=== PATIENT | male | born 1955 | race Caucasian/White ===

== ENCOUNTER 2024-01-31 18:47 | Outpatient (BNV) | payer MEDICARE, SELFPAY | END 2024-02-20 07:00 | PROVIDERS: Admitting Provider Psychiatry & Neurology Psychiatry; Visit Provider Internal Medicine Cardiovascular Disease | DX: R22.43 Localized swelling, mass and lump, lower limb, bilateral (principal) | CPT/HCPCS: 93306 ==

== ENCOUNTER 2024-01-31 18:47 | Outpatient (BNV) | payer MEDICARE, SELFPAY | END 2024-02-19 | PROVIDERS: Admitting Provider Psychiatry & Neurology Psychiatry; Visit Provider Internal Medicine Cardiovascular Disease | DX: R00.1 Bradycardia, unspecified (principal) | CPT/HCPCS: 93010 ==

== ENCOUNTER 2024-01-31 18:47 | Inpatient (IN) | payer MEDICARE, SELFPAY ==
--- NOTE | ~2024-01-31 | CT_ITS ---
EXAMINATION: CT HEAD WITHOUT CONTRAST CLINICAL INFORMATION: s/p fall head injury COMPARISON: None available. TECHNIQUE: Contiguous axial imaging was performed from the skull base to vertex without intravenous administration of contrast. This CT examination was performed using dose optimization techniques as appropriate, variously including the following: *Automated exposure control *Adjustment of mA and/or kV according to patient size (this includes techniques or standardized protocols for targeted exams where dose is matched to indication/reason for exam; i.e. extremities or head) *Use of iterative reconstruction technique DLP: 825 mGy-cm FINDINGS: Bony calvarium is intact. Skull base is intact. Incomplete fusion posterior arch of C1, congenital. No acute intracranial hemorrhage, mass effect, midline shift, hydrocephalus or herniation. Heaton-white matter differentiation is normal. Posterior cranial fossa contents demonstrated no acute intracranial hemorrhage or mass effect. Sellar/suprasellar region demonstrated no gross mass. Craniocervical junction is intact. Mucosal thickening without air-fluid levels in the paranasal sinuses. Tympanic cavities and mastoid air cells are aerated. CT/CT head/brain wo IV con IMPRESSION: No acute fracture, bony calvarium. No acute intracranial hemorrhage. Electronically signed by: Jevon Mcmahon MD 02/06/2024 10:49 AM EDT
[2024-01-31 19:05] VITALS: BMI 18.0
[2024-01-31 19:06] VITALS: BMI 18.0
[2024-01-31 19:11] VITALS: BP 130/74; PULSE 86; RESP 20; TEMP 36.3; O2SAT 98
[2024-01-31] MEDS: bisacodyL 5 MG TABLET.DR 10 MG PO (21:22)
[2024-01-31] MEDS: LORazepam 1 MG TABLET PO (21:23)
[2024-01-31 21:24] VITALS: BP 95/66; PULSE 97; RESP 18; TEMP 36.6; O2SAT 98
[2024-01-31] MEDS: QUEtiapine Fumarate 50 MG TABLET 150 MG PO (21:24)
--- NOTE | 2024-02-01 02:44 | PC.ADMIT ---
Admitted these 68 years old male patient from [facility] per stretcher accompanied by ambulance staff and security system engineer w/ presenting problem of catatonia. Pt. has HX of Frontotemporal Dementia, Anxiety, depression, HTN and Squamous cell cancer of scalp and skin of neck resection years ago . According to report pt came in 01/25/24 i [facility] w/ catatonia, on Ativan, had been on Ativan DC'd- catatonia. Ativan 1 mg daily- pt get better. His brother chart daily thru- My Chart. Pt is fixated on his bowels. Pt. arrived here in the unit at 19:05h w/ the CV. Upon arrival to the unit pt is oriented to the unit, room, room mate and staff. Pt. is pleasant on approached, cooperative w/ the admission process although towards the end he is very sleepy. Pt is alert and oriented to person, place and date. Skin assessment done w/ some redness on his buttocks, hands and elbows but intact, has some red dots anterior and posterior Torso. Pt signs some of the consents for release of information but refused the others, pt said he will talk 1st w/ his brother. call center team leader provider notified w/ new orders put in and acknowledged. Pt given his scheduled medications at HS and med compliant.Patient c/o being hungry, given a sandwich and radha steve. Pt. is independent in ADL's, ambulation and continent of urine. Pt wears eyeglasses at baseline. We'll continue to monitor patient.
--- NOTE | 2024-02-01 06:45 | HO.PSYADMNOT ---
HPI Date of Service: 02/01/24 Chief Complaint: Catatonia Sources of Information: patient interviewed, chart reviewed and crisis/core team assessment reviewed HPI Subjective Notes: Rich Warning Healthcare Proxy: Yes Narrative: The patient is a 68-year-old male, from his , living with his brother with a past history of frontotemporal dementia who was initially admitted at [facility] last month due to catatonia. Was treated with lorazepam with for improvement but later on taper it off. He was seen by his neurologist on January and recommended to go to the hospital since he relapsed on his catatonic symptoms. He was assessed in the emergency room of [facility], recommended the possibility of readmission with a facility that has ECT as a treatment option. On interview, the patient was pleasant, cooperative reported that he has been feeling more dysphoric and tired, he adamantly denies active suicidal ideation or paranoia. He looks hypoactive with psychomotor retardation. We discussed at length treatment options and he wants his brother to be involved in the decision making. We discussed options and he agreed to continue lorazepam on the meantime. His main concern is constipation, according to the nursing staff he was very somatically preoccupied with his bowel movements and medications. We are continuing Dulcolax that was started standing at [facility]. The patient is a very poor historian so we will try to gather more collateral information from his brother. Past Psychiatric History: He was admitted into inpatient at [facility] last month due to depression, catatonia that resolved with lorazepam. Medical Evaluation Reviewed: Hospitalist Av Pending [facility] Family History: According to EMS reports, his mother suffered from depression. Social History: The patient is from his , he is residing with his brother in [place]. He recently moved from [place] to [place] to live with him. Substance History: Denies Trauma History: Unable to assess Diagnostics Vital Signs (24Hr): Vital Signs - 24 hr 01/31/24 19:11 01/31/24 21:24 Temperature 97.3 F 97.8 F Pulse Rate 86 97 Respiratory Rate 20 18 Blood Pressure 130/74 95/66 Pulse Oximetry 98 98 Oxygen Delivery Method Room Air Room Air BMI result Body Mass Index 18.0 Meds/Allergies Meds Home Medications ?Medication ?Instructions ?Recorded ?Confirmed ?Type bisacodyl 5 mg tablet,delayed 10 mg PO BEDTIME 01/31/24 01/31/24 History release clonidine HCl 0.1 mg tablet 0.1 mg PO BID 01/31/24 01/31/24 History escitalopram oxalate 5 mg tablet 15 mg PO DAILY 01/31/24 01/31/24 History lorazepam 1 mg tablet (Ativan) 1 mg PO TID 01/31/24 01/31/24 History polyethylene glycol 3350 17 gram 17 g PO DAILY PRN Constipation 01/31/24 01/31/24 History oral powder packet quetiapine 150 mg tablet 150 mg PO BEDTIME 01/31/24 01/31/24 History valsartan 160 mg tablet 160 mg PO DAILY 01/31/24 01/31/24 History Allergies Allergies Allergy/AdvReac Type Severity Reaction Status Date / Time No Known Allergies Allergy Verified 01/31/24 19:31 Mental Status Exam Mental Status Exam Patient Appearance: Appropriate (On hospital gowns) Patient Orientation: Person, Place and Situation Level of Consciousness: Awake and Restless Patient Behavior: Guarded and Passive Mood Description: Withdrawn Affect Description: Blunted Patient Cognition Impaired: Yes Ability to Follow Directions: Good Speech Pattern: Impoverished Hallucinations: None Delusions: Ideas of Reference Thought Process: Distracted and Slowed Thinking Thought Content: positive for Beaver and positive for Poverty of Content Judgement: Poor Assessment & Plan Assessment & Plan (1) Frontotemporal dementia: Status: Acute Code(s): G31.09 - Other frontotemporal neurocognitive disorder; F02.80 - Dementia in other diseases classified elsewhere, unspecified severity, without behavioral disturbance, psychotic disturbance, mood disturbance, and anxiety (2) Catatonia: Status: Acute Code(s): F06.1 - Catatonic disorder due to known physiological condition Plan The patient is an elderly male who looks older than his stated age with a past history of frontotemporal dementia and catatonia who was admitted last month at [facility] for worsening of depression with catatonic symptoms that improved with lorazepam. The patient came back to the emergency room as per his neurologist who noted that he was catatonic again. While he was in the ED, he was reluctant to take Ativan and he was transferred here for the possibility of ECT. The patient is a very poor historian so we will try to gather more collateral information. Plan 1. Continue the same level of observation. 2. Referral to the hospitalist for physical exam. 3. We will follow the blood work and medical assessment. 4. We will need to gather more collateral information from his brother who is the healthcare proxy. 5. Continue Lexapro 15 mg daily and Ativan as prescribed. 6. EKG today Patient educated on: diagnosis and therapeutic strategies Guardian/Caregiver educated on: diagnosis, medication risk/benefits and ECT Informed Consent: further education needed Reason for continued inpatient stay Substantial Risk for: inability to function, rapid decompensation and med/psych decompensation Statement Statement: I have reviewed the history and physical and performed a pertinent examination on my patient. No changes have occurred unless specified. If the History and Physical was not performed prior to admission, the Hospitalist's service will be consulted for completing the admission physical. Time Spent With Patient Time: Total time managing care of this patient today __45__ minutes.
[2024-02-01 07:57] LABS: Cholesterol 213 mg/dL (<200); Estimated Average Glucose 94 mg/dL; HDL Cholesterol 81 mg/dL (>40); Hemoglobin A1C 114.5416 umol/L; Hemoglobin A1c % 4.9 % (<6.0); LDL Cholesterol Calculated 120 mg/dL (<100); Magnesium 1.9 mg/dL (1.6-2.6); Total Hemoglobin (HGBA1C) 3765.9672 umol/L; Triglycerides 60 mg/dL (<150)
[2024-02-01 08:00] VITALS: BP 117/61; PULSE 79; RESP 14; TEMP 36.6; O2SAT 99
[2024-02-01 08:27] LABS: Folate 9.1 ng/mL (> or = 4.0); Vitamin B12 1141 pg/mL (200-900)
[2024-02-01] MEDS: cloNIDine HCL 0.1 MG TABLET PO ×2 (08:57→20:31)
[2024-02-01] MEDS: LORazepam 1 MG TABLET PO ×3 (08:57→20:31)
[2024-02-01] MEDS: Valsartan 160 MG TABLET PO (08:58)
[2024-02-01] MEDS: Escitalopram Oxalate 5 MG TABLET 15 MG PO (08:58)
--- NOTE | 2024-02-01 13:38 | HO.PM.IMCN ---
History of Present Illness Data of Consult Service Date: 02/01/24 Primary Care Provider: Unknown Physician HPI Reason for consult: Admission H&P Patient is a 68-year-old male with a PMH significant for HTN, frontotemporal dementia, and hx of catatonia who was [facility] for decompensation at home and increased catatonic symptoms. Was originally referred to [facility] ED by his neurologist, and patient was transferred to facility with ECT. Hospitalist consult admission H&P. Patient initially seen in common area and then brought to his room for evaluation. Patient appears hypoactive with slight delay in response, slow careful ambulation and movements, but not acutely catatonic. Patient complains of constipation with last bowel movement approximately 3 days ago. Also complains of chronic occasional, intermittent pain on his right side. Currently asymptomatic. Patient otherwise has no acute medical complaints. Denies fever, chills, nausea, vomiting, abdominal pain. No chest pain/pressure, palpitations. Denies shortness or breath or difficulty breathing. No cough. Denies headache or acute vision changes. Review of Systems Review of Systems: Patient has no acute medical complaints at this time. [facility] Medical History (Updated 02/01/24 @ 14:22 by GREGORY Calvert) HTN (hypertension) Social History Household Members: Other Household Members Other:: lives w/ his brother according to the pt. Housing: House Do you presently have visiting nurse or other home services: No Patient Tobacco Use Status: Never used Tobacco Smoked in Last 30 Days: No e-Cigarette/Vaping Use: Never Used Patient Interested in Nicotine Replacement: No (Pt said he never smoke.) Patient Given Instructions on How to Stop Smoking: No Second Hand Smoke Exposure: No Use of substances other than those prescribed or required for medical reasons: No Currently Displaying Signs/Symptoms of Drug Intoxication Withdrawal: No Have you been hit, kicked, punched, or otherwise hurt by someone within the past year? If so, by whom?: No Do you feel safe in your current relationship?: No Current Relationship Is there a partner from a previous relationship who is making you feel unsafe now?: No Are you made to feel afraid or neglected: No Advance Directives: No Advance Directives Information Provided: Yes Do you have thoughts of harming others: None Do you have a plan to hurt others: No Plan Recently lost weight without trying: No How much weight loss: Not applicable Eating poorly because of decreased appetite: No Nutrition screen score: 0 Poor oral hygiene: No Meds Allergies Allergy/AdvReac Type Severity Reaction Status Date / Time No Known Allergies Allergy Verified 01/31/24 19:31 Active Medications: Current Medications Acetaminophen (Acetaminophen 325 Mg Tablet) 650 mg PO Q6H PRN PRN Reason: Headache/Pain Mild Scale (1-3) Al Hydroxide/Mg Hydroxide (Magnesium Hydrox/Alum Hydrox 30 Ml Oral.Susp) 30 ml PO Q6H PRN PRN Reason: Heartburn/Nausea Bisacodyl (Bisacodyl 5 Mg Tablet.Dr) 10 mg PO BEDTIME COUNTS INCLUDE 234 BEDS AT THE [facility] Last Admin: 01/31/24 21:22 Dose: 10 mg Bisacodyl (Bisacodyl 5 Mg Tablet.Dr) 10 mg PO BEDTIME [facility] Clonidine HCl (Clonidine Hcl 0.1 Mg Tablet) 0.1 mg PO BID [facility]IE; Protocol Last Admin: 02/01/24 08:57 Dose: 0.1 mg Escitalopram Oxalate (Escitalopram Oxalate 5 Mg Tablet) 15 mg PO DAILY COUNTS INCLUDE 234 BEDS AT THE [facility] Last Admin: 02/01/24 08:58 Dose: 15 mg Hydroxyzine HCl (Hydroxyzine Hcl 25 Mg Tablet) 25 mg PO Q6H PRN PRN Reason: Anxiety Lorazepam (Lorazepam 1 Mg Tablet) 1 mg PO TID COUNTS INCLUDE 234 BEDS AT THE [facility] Last Admin: 02/01/24 08:57 Dose: 1 mg Magnesium Hydroxide (Milk Of Magnesia 30 Ml Oral.Susp) 30 ml PO DAILY PRN PRN Reason: Constipation Nicotine Polacrilex (Nicotine Polacrilex 2 Mg Gum) 4 mg BUCCAL Q2H PRN PRN Reason: Nicotine Cravings Polyethylene Glycol (Polyethylene Glycol 3350 17 Gm Powd.Pack) 17 gm PO DAILY PRN PRN Reason: Constipation Quetiapine Fumarate (Quetiapine Fumarate 50 Mg Tablet) 150 mg PO BEDTIME COUNTS INCLUDE 234 BEDS AT THE [facility] Last Admin: 01/31/24 21:24 Dose: 150 mg Trazodone HCl (Trazodone Hcl 50 Mg Tablet) 50 mg PO BEDTIME MRX1 PRN PRN Reason: Insomnia Valsartan (Valsartan 160 Mg Tablet) 160 mg PO DAILY COUNTS INCLUDE 234 BEDS AT THE [facility]; Protocol Last Admin: 02/01/24 08:58 Dose: 160 mg Home Medications ?Medication ?Instructions ?Recorded ?Confirmed ?Last Taken ?Type bisacodyl 5 mg tablet,delayed 10 mg PO BEDTIME 01/31/24 01/31/24 01/30/24 21:00 History release clonidine HCl 0.1 mg tablet 0.1 mg PO BID 01/31/24 01/31/24 Unknown History escitalopram oxalate 5 mg tablet 15 mg PO DAILY 01/31/24 01/31/24 Unknown History lorazepam 1 mg tablet (Ativan) 1 mg PO TID 01/31/24 01/31/24 Unknown History polyethylene glycol 3350 17 gram 17 g PO DAILY PRN Constipation 01/31/24 01/31/24 01/29/24 20:00 History oral powder packet quetiapine 150 mg tablet 150 mg PO BEDTIME 01/31/24 01/31/24 Unknown History valsartan 160 mg tablet 160 mg PO DAILY 01/31/24 01/31/24 Unknown History Physical Exam Vital Signs and Narrative: Vital Signs: Last Vital Signs Temp 97.9 F 02/01/24 08:00 Pulse 79 02/01/24 08:00 Resp 14 02/01/24 08:00 BP 117/61 02/01/24 08:00 Pulse Ox 99 02/01/24 08:00 O2 Del Method Room Air 02/01/24 08:00 BMI result Body Mass Index 18.0 General: AOx3, no acute distress Resp: CTA bilaterally CVS: S1, S2, RRR GI: +BS, NT, no distention Skin: Warm, dry Neuro: Cranial nerves II-XII grossly intact bilaterally. Motor grossly intact bilaterally Extremities: No edema Psych: Flat affect, hypoactive Results Labs Labs: Laboratory Results - last 24 hr 02/01/24 07:03 Estimat Average Glucose 94 Hemoglobin A1c % 4.9 Magnesium 1.9 Triglycerides 60 Cholesterol 213 H LDL Cholesterol, Calc 120 H HDL Cholesterol 81 Vitamin B12 1141 H Folate 9.1 TSH 3.50 Free T4 1.00 Assessment and Plan (1) Medical clearance for psychiatric admission: Status: Acute Plan Patient is a 68-year-old male with a PMH significant for HTN, frontotemporal dementia, and hx of catatonia who was admitted [facility] for decompensation at home and increased catatonic symptoms. Was originally referred to [facility] ED by his neurologist, and patient was transferred to facility with ECT. Hospitalist consult admission H&P. Mood disorder Plan as per Psychiatry HTN Continue valsartan Constipation The patient reports last bowel movement 3 days ago Physical exam benign: Abdomen soft, nontender Continue bowel regimen Thank you for allowing us to participate in the care of this patient. Signing off at this time. Please re-consult if any acute complaints or issues arise.
[2024-02-01 20:00] VITALS: BP 126/66; PULSE 77; RESP 18; TEMP 35.7; O2SAT 100
[2024-02-01] MEDS: QUEtiapine Fumarate 50 MG TABLET 150 MG PO (20:29)
[2024-02-01] MEDS: bisacodyL 5 MG TABLET.DR 10 MG PO ×2 (20:30)
[2024-02-01 20:31] VITALS: BP 126/66
--- NOTE | 2024-02-02 06:32 | P.PNPSI_ITS ---
Subjective Subjective Date of Service: 02/02/24 Reason For Visit: Catatonia Interim History: The nursing staff reported the patient is independent on his the ambulation, he remains anxious with psychomotor retardation and slowed thought process. On interview the patient remains anxious. We will try to gather more collateral information today. Mental Status Exam Mental Status Exam Patient Appearance: Appropriate Patient Orientation: Person Level of Consciousness: Awake Patient Behavior: Guarded and Passive Mood Description: Withdrawn Affect Description: Constricted Patient Cognition Impaired: Yes Ability to Follow Directions: Good Speech Pattern: Clear Hallucinations: None Delusions: Ideas of Reference Thought Process: Distracted and Slowed Thinking Thought Content: positive for Perseveration and positive for Thought Blocking Judgement: Poor Diagnostics Vital Signs (24Hr): Vital Signs - 24 hr 02/01/24 08:00 02/01/24 20:00 02/01/24 20:31 Temperature 97.9 F 96.2 F L Pulse Rate 79 77 Respiratory Rate 14 18 Blood Pressure 117/61 126/66 126/66 Pulse Oximetry 99 100 Oxygen Delivery Method Room Air Room Air BMI result Body Mass Index 18.0 Labs Labs: Laboratory Results - last 48 hr 02/01/24 07:03 Estimat Average Glucose 94 Hemoglobin A1c % 4.9 Magnesium 1.9 Triglycerides 60 Cholesterol 213 H LDL Cholesterol, Calc 120 H HDL Cholesterol 81 Vitamin B12 1141 H Folate 9.1 TSH 3.50 Free T4 1.00 Medications Medications Current Medications Acetaminophen (Acetaminophen 325 Mg Tablet) 650 mg PO Q6H PRN PRN Reason: Headache/Pain Mild Scale (1-3) Al Hydroxide/Mg Hydroxide (Magnesium Hydrox/Alum Hydrox 30 Ml Oral.Susp) 30 ml PO Q6H PRN PRN Reason: Heartburn/Nausea Bisacodyl (Bisacodyl 5 Mg Tablet.Dr) 10 mg PO BEDTIME [facility] Last Admin: 02/01/24 20:30 Dose: 10 mg Bisacodyl (Bisacodyl 5 Mg Tablet.Dr) 10 mg PO BEDTIME [facility] Last Admin: 02/01/24 20:30 Dose: 10 mg Clonidine HCl (Clonidine Hcl 0.1 Mg Tablet) 0.1 mg PO BID [facility]; Protocol Last Admin: 02/01/24 20:31 Dose: 0.1 mg Escitalopram Oxalate (Escitalopram Oxalate 5 Mg Tablet) 15 mg PO DAILY [facility] Last Admin: 02/01/24 08:58 Dose: 15 mg Hydroxyzine HCl (Hydroxyzine Hcl 25 Mg Tablet) 25 mg PO Q6H PRN PRN Reason: Anxiety Lorazepam (Lorazepam 1 Mg Tablet) 1 mg PO TID [facility] Last Admin: 02/01/24 20:31 Dose: 1 mg Magnesium Hydroxide (Milk Of Magnesia 30 Ml Oral.Susp) 30 ml PO DAILY PRN PRN Reason: Constipation Nicotine Polacrilex (Nicotine Polacrilex 2 Mg Gum) 4 mg BUCCAL Q2H PRN PRN Reason: Nicotine Cravings Polyethylene Glycol (Polyethylene Glycol 3350 17 Gm Powd.Pack) 17 gm PO DAILY PRN PRN Reason: Constipation Quetiapine Fumarate (Quetiapine Fumarate 50 Mg Tablet) 150 mg PO BEDTIME [facility] Last Admin: 02/01/24 20:29 Dose: 150 mg Trazodone HCl (Trazodone Hcl 50 Mg Tablet) 50 mg PO BEDTIME MRX1 PRN PRN Reason: Insomnia Valsartan (Valsartan 160 Mg Tablet) 160 mg PO DAILY [facility]; Protocol Last Admin: 02/01/24 08:58 Dose: 160 mg Allergies Allergies Allergy/AdvReac Type Severity Reaction Status Date / Time No Known Allergies Allergy Verified 01/31/24 19:31 Assessment & Plan Assessment & Plan (1) Medical clearance for psychiatric admission: Status: Acute Code(s): Z00.8 - Encounter for other general examination Plan Patient is a 68-year-old male with a PMH significant for HTN, frontotemporal dementia, and hx of catatonia who was admitted [facility] for decompensation at home and increased catatonic symptoms. Was originally referred to [facility] ED by his neurologist, and patient was transferred to facility with ECT. Hospitalist consult admission H&P. Mood disorder Plan as per Psychiatry HTN Continue valsartan Constipation The patient reports last bowel movement 3 days ago Physical exam benign: Abdomen soft, nontender Continue bowel regimen Plan 1. Gather collateral information. 2. EKG for possible ECT. 3. Continue with Lexapro 15 mg and benzodiazepines. 4. Observation was changed to 15 minutes since the patient looks safe in the unit. Reason for continued inpatient stay Substantial Risk for: inability to function, rapid decompensation and med/psych decompensation Time Spent With Patient Time: Total time managing care of this patient today __20__ minutes.
[2024-02-02 08:00] VITALS: BP 128/72; PULSE 72; RESP 18; TEMP 36.6; O2SAT 99
[2024-02-02] MEDS: Valsartan 160 MG TABLET PO (08:03)
[2024-02-02] MEDS: cloNIDine HCL 0.1 MG TABLET PO ×2 (08:03→20:57)
[2024-02-02] MEDS: Escitalopram Oxalate 5 MG TABLET 15 MG PO (08:03)
[2024-02-02] MEDS: LORazepam 1 MG TABLET PO ×3 (08:04→20:57)
[2024-02-02 20:00] VITALS: BP 128/73; PULSE 74; RESP 18; TEMP 36.7; O2SAT 100
[2024-02-02] MEDS: QUEtiapine Fumarate 50 MG TABLET 150 MG PO (20:57)
[2024-02-02] MEDS: traZODone HCL 50 MG TABLET PO (20:58)
[2024-02-03 08:00] VITALS: BP 125/68; PULSE 68; RESP 18; TEMP 36.1; O2SAT 99
[2024-02-03] MEDS: Escitalopram Oxalate 5 MG TABLET 15 MG PO (08:50)
[2024-02-03] MEDS: Valsartan 160 MG TABLET PO (08:51)
[2024-02-03] MEDS: LORazepam 1 MG TABLET PO ×3 (08:52→19:45)
[2024-02-03] MEDS: cloNIDine HCL 0.1 MG TABLET PO ×2 (08:52→19:45)
--- NOTE | 2024-02-03 12:15 | HO.PSYCHPN ---
Subjective Subjective Date of Service: 02/03/24 Reason For Visit: Catatonia Subjective Notes: Conditional Voluntary Interim History: The nursing staff reported the patient had been visible in the unit. He reports his depression 09/22. He had been flat and guarded refused to take Dulcolax last night. On interview the patient remains confused calm and hypoactive. We will try to gather more collateral information. Today we have a meeting with his brother and another relative and apparently he does not have frontotemporal dementia. He had been chronically depressed and now he is nearly catatonic. Not at his baseline. Mental Status Exam Mental Status Exam Patient Appearance: Appropriate Patient Orientation: Person and Situation Level of Consciousness: Awake and Appropriate Patient Behavior: Guarded and Passive Mood Description: Withdrawn Affect Description: Constricted Patient Cognition Impaired: Yes Ability to Follow Directions: Good Speech Pattern: Clear Hallucinations: None Delusions: Not Present Thought Process: Distracted and Slowed Thinking Thought Content: positive for [place] and positive for Poverty of Content Judgement: Poor Diagnostics Vital Signs (24Hr): Vital Signs - 24 hr 02/02/24 20:00 02/03/24 08:00 Temperature 98.1 F 97.0 F Pulse Rate 74 68 Respiratory Rate 18 18 Blood Pressure 128/73 125/68 Pulse Oximetry 100 99 Oxygen Delivery Method Room Air Room Air BMI result Body Mass Index 18.0 Medications Medications Current Medications Acetaminophen (Acetaminophen 325 Mg Tablet) 650 mg PO Q6H PRN PRN Reason: Headache/Pain Mild Scale (1-3) Al Hydroxide/Mg Hydroxide (Magnesium Hydrox/Alum Hydrox 30 Ml Oral.Susp) 30 ml PO Q6H PRN PRN Reason: Heartburn/Nausea Bisacodyl (Bisacodyl 5 Mg Tablet.Dr) 10 mg PO BEDTIME [facility] Last Admin: 02/02/24 21:27 Dose: Not Given Bisacodyl (Bisacodyl 5 Mg Tablet.Dr) 10 mg PO BEDTIME [facility] Last Admin: 02/02/24 21:28 Dose: Not Given Clonidine HCl (Clonidine Hcl 0.1 Mg Tablet) 0.1 mg PO BID [facility]; Protocol Last Admin: 02/03/24 08:52 Dose: 0.1 mg Escitalopram Oxalate (Escitalopram Oxalate 5 Mg Tablet) 15 mg PO DAILY [facility] Last Admin: 02/03/24 08:50 Dose: 15 mg Hydroxyzine HCl (Hydroxyzine Hcl 25 Mg Tablet) 25 mg PO Q6H PRN PRN Reason: Anxiety Lorazepam (Lorazepam 1 Mg Tablet) 1 mg PO TID [facility] Last Admin: 02/03/24 08:52 Dose: 1 mg Magnesium Hydroxide (Milk Of Magnesia 30 Ml Oral.Susp) 30 ml PO DAILY PRN PRN Reason: Constipation Nicotine Polacrilex (Nicotine Polacrilex 2 Mg Gum) 4 mg BUCCAL Q2H PRN PRN Reason: Nicotine Cravings Polyethylene Glycol (Polyethylene Glycol 3350 17 Gm Powd.Pack) 17 gm PO DAILY PRN PRN Reason: Constipation Quetiapine Fumarate (Quetiapine Fumarate 50 Mg Tablet) 150 mg PO BEDTIME [facility] Last Admin: 02/02/24 20:57 Dose: 150 mg Trazodone HCl (Trazodone Hcl 50 Mg Tablet) 50 mg PO BEDTIME MRX1 PRN PRN Reason: Insomnia Last Admin: 02/02/24 20:58 Dose: 50 mg Valsartan (Valsartan 160 Mg Tablet) 160 mg PO DAILY [facility]; Protocol Last Admin: 02/03/24 08:51 Dose: 160 mg Allergies Allergies Allergy/AdvReac Type Severity Reaction Status Date / Time No Known Allergies Allergy Verified 01/31/24 19:31 Assessment & Plan Assessment & Plan (1) Catatonia: Status: Acute Code(s): F06.1 - Catatonic disorder due to known physiological condition (2) Major depressive disorder: Status: Acute Code(s): F32.9 - Major depressive disorder, single episode, unspecified Plan Patient is a 68-year-old male with a PMH significant for HTN, frontotemporal dementia as per you must but later on, his brother reported that he does not have this condition., and hx of catatonia who was admitted to [facility] for decompensation at home and increased catatonic symptoms. Was originally referred to [facility] ED by his neurologist, and patient was transferred to facility with ECT. Hospitalist consult admission H&P. Mood disorder Plan as per Psychiatry HTN Continue valsartan Constipation The patient reports last bowel movement 3 days ago Physical exam benign: Abdomen soft, nontender Continue bowel regimen Plan 1. Gather collateral information. 2. EKG for possible ECT. 3. Continue with Lexapro 15 mg and benzodiazepines. 4. Observation was changed to 15 minutes since the patient looks safe in the unit. Reason for continued inpatient stay Substantial Risk for: inability to function, rapid decompensation and med/psych decompensation Time Spent With Patient Time: Total time managing care of this patient today __20__ minutes.
--- NOTE | 2024-02-03 14:42 | MHC.CLN ---
NUTRITION PATIENT WITH BMI=18. APPEARS THIN WITH MILD DEPLETION OF MUSCLE MASS NOTED AT TEMPLES. DISCUSSED ADDING SUPPLEMENT. STATED THAT TOO SWEET . APPEARS TO BE EATING WELL. SKIN WITH REDNESS TO COCCYX. RD TO FOLLOW WEEKLY.
[2024-02-03 19:42] VITALS: BP 131/71; PULSE 70; RESP 17; TEMP 36.8; O2SAT 99
[2024-02-03 19:45] VITALS: BP 131/71
[2024-02-03] MEDS: QUEtiapine Fumarate 50 MG TABLET 150 MG PO (19:45)
[2024-02-03] MEDS: bisacodyL 5 MG TABLET.DR 10 MG PO (19:45)
--- NOTE | 2024-02-04 | ECG_ITS ---
Test Reason : QTC Blood Pressure : / mmHG Vent. Rate : 069 BPM Atrial Rate : 069 BPM P-R Int : 160 ms QRS Dur : 108 ms QT Int : 412 ms P-R-T Axes : 072 084 090 degrees QTc Int : 441 ms Normal sinus rhythm Normal ECG No previous ECGs available Referred By: Camila Mcguire Electronically Signed By:Lb Wong
[2024-02-04 08:00] VITALS: BP 136/70; PULSE 65; RESP 16; TEMP 36.1; O2SAT 100
[2024-02-04] MEDS: Escitalopram Oxalate 5 MG TABLET 15 MG PO (08:44)
[2024-02-04] MEDS: LORazepam 1 MG TABLET PO ×3 (08:45→19:58)
[2024-02-04] MEDS: cloNIDine HCL 0.1 MG TABLET PO ×2 (08:46→19:59)
[2024-02-04] MEDS: Valsartan 160 MG TABLET PO (08:46)
--- NOTE | 2024-02-04 11:21 | HO.PM.IMCN ---
History of Present Illness Data of Consult Service Date: 02/04/24 Requesting physician: Charbel Smith Primary Care Provider: Unknown Physician HPI Reason for consult: ECT risk stratification Patient is a 68-year-old male with a past medical history significant for hypertension and constipation, admitted to [facility] for depression and catatonia. There was question of a history frontotemporal dementia however after confirmation with his family has been deemed that he does not have this diagnosis. He was referred by his neurologist at [facility] for ECT. Hospital consult today for ECT risk stratification. No previous history of ECT. Reports history of hypertension, well-controlled. Denies history of cerebral hemorrhage or ischemic stroke, seizure disorder or TBI. He does mention a possible benign brain lesion diagnosed at [facility] in [place], [place]. He has minimal information on this. No significant cardiac history including CAD, NV, or cardiac arrhythmias. No severe pulmonary conditions. Denies history of bleeding disorders. No previous complications with anesthesia. EKG not yet done. He denies chest pain, palpitations, shortness of breath, dyspnea, lightheadedness, dizziness, fever, chills, nausea, vomiting, or abdominal pain. No bleeding including hematemesis, hemoptysis, hematochezia or melena. Review of Systems Constitutional: Constitutional: Denies body ache(s), Denies chills, Denies fever(s) and Denies headache(s) Eyes: Eyes: Denies change in vision and Denies loss of vision ENT: Denies headache(s) Cardiovascular: Cardiovascular: Denies rapid heart rate, Denies lightheadedness and Denies dyspnea Respiratory: Respiratory: Denies cough and Denies dyspnea Gastrointestinal: Gastrointestinal: Denies nausea and Denies vomiting Integumentary/Breasts: Skin/Breast: Denies rash Neurologic: Denies headache(s), Denies loss of vision and Denies convulsions [facility] Medical History (Updated 02/04/24 @ 13:43 by Camila Mcguire PA-C) HTN (hypertension) Social History Household Members: Other Household Members Other:: lives w/ his brother according to the pt. Housing: House Do you presently have visiting nurse or other home services: No Patient Tobacco Use Status: Never used Tobacco Smoked in Last 30 Days: No e-Cigarette/Vaping Use: Never Used Patient Interested in Nicotine Replacement: No (Pt said he never smoke.) Patient Given Instructions on How to Stop Smoking: No Second Hand Smoke Exposure: No Use of substances other than those prescribed or required for medical reasons: No Currently Displaying Signs/Symptoms of Drug Intoxication Withdrawal: No Have you been hit, kicked, punched, or otherwise hurt by someone within the past year? If so, by whom?: No Do you feel safe in your current relationship?: No Current Relationship Is there a partner from a previous relationship who is making you feel unsafe now?: No Are you made to feel afraid or neglected: No Advance Directives: No Advance Directives Information Provided: Yes Do you have thoughts of harming others: None Do you have a plan to hurt others: No Plan Recently lost weight without trying: No How much weight loss: Not applicable Eating poorly because of decreased appetite: No Nutrition screen score: 0 Poor oral hygiene: No service: No Sexual orientation: Straight/Heterosexual Meds Allergies Allergy/AdvReac Type Severity Reaction Status Date / Time No Known Allergies Allergy Verified 01/31/24 19:31 Active Medications: Current Medications Acetaminophen (Acetaminophen 325 Mg Tablet) 650 mg PO Q6H PRN PRN Reason: Headache/Pain Mild Scale (1-3) Al Hydroxide/Mg Hydroxide (Magnesium Hydrox/Alum Hydrox 30 Ml Oral.Susp) 30 ml PO Q6H PRN PRN Reason: Heartburn/Nausea Bisacodyl (Bisacodyl 5 Mg Tablet.Dr) 10 mg PO BEDTIME [facility] Last Admin: 02/03/24 19:46 Dose: Not Given Clonidine HCl (Clonidine Hcl 0.1 Mg Tablet) 0.1 mg PO BID [facility]; Protocol Last Admin: 02/04/24 08:46 Dose: 0.1 mg Escitalopram Oxalate (Escitalopram Oxalate 5 Mg Tablet) 15 mg PO DAILY [facility] Last Admin: 02/04/24 08:44 Dose: 15 mg Hydroxyzine HCl (Hydroxyzine Hcl 25 Mg Tablet) 25 mg PO Q6H PRN PRN Reason: Anxiety Lorazepam (Lorazepam 1 Mg Tablet) 1 mg PO TID [facility] Last Admin: 02/04/24 08:45 Dose: 1 mg Magnesium Hydroxide (Milk Of Magnesia 30 Ml Oral.Susp) 30 ml PO DAILY PRN PRN Reason: Constipation Nicotine Polacrilex (Nicotine Polacrilex 2 Mg Gum) 4 mg BUCCAL Q2H PRN PRN Reason: Nicotine Cravings Polyethylene Glycol (Polyethylene Glycol 3350 17 Gm Powd.Pack) 17 gm PO DAILY PRN PRN Reason: Constipation Quetiapine Fumarate (Quetiapine Fumarate 50 Mg Tablet) 150 mg PO BEDTIME [facility] Last Admin: 02/03/24 19:45 Dose: 150 mg Trazodone HCl (Trazodone Hcl 50 Mg Tablet) 50 mg PO BEDTIME MRX1 PRN PRN Reason: Insomnia Last Admin: 02/02/24 20:58 Dose: 50 mg Valsartan (Valsartan 160 Mg Tablet) 160 mg PO DAILY [facility]; Protocol Last Admin: 02/04/24 08:46 Dose: 160 mg Home Medications ?Medication ?Instructions ?Recorded ?Confirmed ?Last Taken ?Type bisacodyl 5 mg tablet,delayed 10 mg PO BEDTIME 01/31/24 01/31/24 01/30/24 21:00 History release clonidine HCl 0.1 mg tablet 0.1 mg PO BID 01/31/24 01/31/24 Unknown History escitalopram oxalate 5 mg tablet 15 mg PO DAILY 01/31/24 01/31/24 Unknown History lorazepam 1 mg tablet (Ativan) 1 mg PO TID 01/31/24 01/31/24 Unknown History polyethylene glycol 3350 17 gram 17 g PO DAILY PRN Constipation 01/31/24 01/31/24 01/29/24 20:00 History oral powder packet quetiapine 150 mg tablet 150 mg PO BEDTIME 01/31/24 01/31/24 Unknown History valsartan 160 mg tablet 160 mg PO DAILY 01/31/24 01/31/24 Unknown History Physical Exam Vital Signs and Narrative: Vital Signs: Last Vital Signs Temp 96.9 F 02/04/24 08:00 Pulse 65 02/04/24 08:00 Resp 16 02/04/24 08:00 BP 136/70 02/04/24 08:00 Pulse Ox 100 02/04/24 08:00 O2 Del Method Room Air 02/04/24 08:00 BMI result Body Mass Index 18.0 Assessment and Plan (1) Preoperative clearance: Status: Acute (2) Major depressive disorder: Status: Acute (3) Catatonia: Status: Acute Plan 68-year-old male with a past medical history significant for hypertension. Consult for ECT risk stratification. Will need records from [facility] regarding possible brain lesion (nurse notified to try to obtain record) to determine medical contraindications for ECT. No previous issues with anesthesia. RCRI class 1 risk. EKG pending, we will assess for prolonged QT or ischemic changes.
--- NOTE | 2024-02-04 16:46 | HO.PSYCHPN ---
Subjective Subjective Date of Service: 02/04/24 Reason For Visit: Catatonia Interim History: Met with patient; discussed with team; reviewed chart Patient appears depressed, slow moving, slow talking, thinking seems slowed. Ob/Gyn discussed symptoms and diagnosis of catatonia. Patient expressed ambivalence about accepting this diagnosis, wondering if it could be due to anxiety; also referenced an MRI that supposedly had benign brain lesion written in the impression and patient wondered if that could be the cause. Ob/Gyn shared how patient significantly improved per family and per patient when he took Ativan which is fairly diagnostic of catatonia. Discussed ECT and patient ambivalent but said he would consider. Patient reports and has been observed to repeat himself or repeat words over and over; patient observed to be internally preoccupied Mental Status Exam Mental Status Exam Narrative: Pt is alert and oriented; behavior is cooperative, slowed, mildly guarded; patient is not in distress; dressed in casual attire, queen, glasses with adequate grooming hygiene; mood is described as depressed and affect congruent, constricted/blunted; eye contact appropriate; Speech is slowed and soft, repeats words under his breath; significant psychomotor retardation present; thought process is goal directed; can perseverate on certain topics; Thought content is on various topics he is anxious about; treatment; otherwise pertinent to relevant topics and without any delusional content, paranoid ideations or grandiosity; denies any SI/HI. Patient is internally preoccupied. Patients insight and judgment impaired Diagnostics Vital Signs (24Hr): Vital Signs - 24 hr 02/03/24 19:42 02/03/24 19:45 02/04/24 08:00 Temperature 98.3 F 96.9 F Pulse Rate 70 65 Respiratory Rate 17 16 Blood Pressure 131/71 131/71 136/70 Pulse Oximetry 99 100 Oxygen Delivery Method Room Air Room Air BMI result Body Mass Index 18.0 Medications Medications Current Medications Acetaminophen (Acetaminophen 325 Mg Tablet) 650 mg PO Q6H PRN PRN Reason: Headache/Pain Mild Scale (1-3) Al Hydroxide/Mg Hydroxide (Magnesium Hydrox/Alum Hydrox 30 Ml Oral.Susp) 30 ml PO Q6H PRN PRN Reason: Heartburn/Nausea Bisacodyl (Bisacodyl 5 Mg Tablet.Dr) 10 mg PO BEDTIME [facility] Last Admin: 02/03/24 19:46 Dose: Not Given Clonidine HCl (Clonidine Hcl 0.1 Mg Tablet) 0.1 mg PO BID [facility]; Protocol Last Admin: 02/04/24 08:46 Dose: 0.1 mg Escitalopram Oxalate (Escitalopram Oxalate 5 Mg Tablet) 15 mg PO DAILY [facility] Last Admin: 02/04/24 08:44 Dose: 15 mg Hydroxyzine HCl (Hydroxyzine Hcl 25 Mg Tablet) 25 mg PO Q6H PRN PRN Reason: Anxiety Lorazepam (Lorazepam 1 Mg Tablet) 1 mg PO TID [facility] Last Admin: 02/04/24 14:34 Dose: 1 mg Magnesium Hydroxide (Milk Of Magnesia 30 Ml Oral.Susp) 30 ml PO DAILY PRN PRN Reason: Constipation Nicotine Polacrilex (Nicotine Polacrilex 2 Mg Gum) 4 mg BUCCAL Q2H PRN PRN Reason: Nicotine Cravings Polyethylene Glycol (Polyethylene Glycol 3350 17 Gm Powd.Pack) 17 gm PO DAILY PRN PRN Reason: Constipation Quetiapine Fumarate (Quetiapine Fumarate 50 Mg Tablet) 150 mg PO BEDTIME [facility] Last Admin: 02/03/24 19:45 Dose: 150 mg Trazodone HCl (Trazodone Hcl 50 Mg Tablet) 50 mg PO BEDTIME MRX1 PRN PRN Reason: Insomnia Last Admin: 02/02/24 20:58 Dose: 50 mg Valsartan (Valsartan 160 Mg Tablet) 160 mg PO DAILY [facility]; Protocol Last Admin: 02/04/24 08:46 Dose: 160 mg Allergies Allergies Allergy/AdvReac Type Severity Reaction Status Date / Time No Known Allergies Allergy Verified 01/31/24 19:31 Assessment & Plan Assessment & Plan (1) Catatonia: Status: Acute Code(s): F06.1 - Catatonic disorder due to known physiological condition (2) Major depressive disorder: Status: Acute Code(s): F32.9 - Major depressive disorder, single episode, unspecified (3) Preoperative clearance: Status: Acute Code(s): Z01.818 - Encounter for other preprocedural examination Plan HPI: The patient is a 68-year-old male, from his , living with his brother with a possible past history of frontotemporal dementia who was initially admitted at [facility] last month due to catatonia. Was treated with lorazepam with for improvement but later on taper it off. He was seen by his neurologist on January and recommended to go to the hospital since he relapsed on his catatonic symptoms. He was assessed in the emergency room of [facility], recommended the possibility of readmission with a facility that has ECT as a treatment option. On interview, the patient was pleasant, cooperative reported that he has been feeling more dysphoric and tired, he adamantly denies active suicidal ideation or paranoia. He looks hypoactive with psychomotor retardation. We discussed at length treatment options and he wants his brother to be involved in the decision making. We discussed options and he agreed to continue lorazepam on the meantime. His main concern is constipation, according to the nursing staff he was very somatically preoccupied with his bowel movements and medications. We are continuing Dulcolax that was started standing at [facility]. The patient is a very poor historian so we will try to gather more collateral information from his brother Hospital course: 02/02 He reports his depression 09/22; flat and guarded refused to take Dulcolax last night; remains confused calm and hypoactive. . -meeting with his brother and another relative and apparently he does NOT have frontotemporal dementia. He had been chronically depressed and now he is nearly catatonic. Not at his baseline. 02/03 Patient appears depressed, slow moving, slow talking, thinking seems slowed. Ob/Gyn discussed symptoms and diagnosis of catatonia. Patient expressed ambivalence about accepting this diagnosis, wondering if it could be due to anxiety; also referenced an MRI that supposedly had benign brain lesion written in the impression and patient wondered if that could be the cause. Ob/Gyn shared how patient significantly improved per family and per patient when he took Ativan which is fairly diagnostic of catatonia. Discussed ECT and patient ambivalent but said he would consider. Patient reports and has been observed to repeat himself or repeat words over and over; patient observed to be internally preoccupied Formulation/clinical reasoning: Patient presents depressed and with significant catatonic symptoms. He is ambivalent about this diagnosis and treatment. Will consider ECT but currently hesitant. Will increase Ativan to 1 mg q.i.d. since patient did improve on 1 mg t.i.d. and declined once Ativan was discontinued (which is fairly diagnostic catatonia) Plan: Legal status? Invoked healthcare proxy Q 15 minute checks Will increase Ativan to 1 mg q.i.d. (patient did significantly improve on Ativan 1 mg t.i.d. though catatonia did not fully resolve; patient decompensated when Ativan was discontinued) -collateral from family -collateral from hospital were patient got MRI Patient educated on: diagnosis, medication risk/benefits, ECT and medical condition Informed Consent: understands, does not understand and further education needed Reason for continued inpatient stay Substantial Risk for: inability to function Time Spent With Patient Time: Total time managing care of this patient today ____ minutes.
[2024-02-04 19:56] VITALS: BP 121/74; PULSE 81; RESP 16; TEMP 36.4; O2SAT 100
[2024-02-04] MEDS: QUEtiapine Fumarate 50 MG TABLET 150 MG PO (19:58)
[2024-02-04] MEDS: bisacodyL 5 MG TABLET.DR 10 MG PO (19:58)
[2024-02-04 19:59] VITALS: BP 121/74
--- NOTE | 2024-02-05 06:46 | PC.NURSE ---
Received this email from the pt's brother on 02/04/24.. Lisette Deluca, Thanks for the explanation of the communication process.? Please send me your phone number, so I can text you if necessary. I?d like to provide the following information to your team? Dr. Smith said yesterday that he planned an MRI of August?s brain as part of his evaluation.? I forgot to tell the doctor that August?s insurance on Dec 28 approved a PET scan, but denied an MRI, that were both ordered by August?s previous outpatient neurologist Dr Edmondson in [facility].? August has since changed outpatient neurologists to Dr. Dereje Malone in [facility].? Insurance stated the MRI was denied because August had brain MRIs on October 03 and Dec 03 at [facility] in [place]. The Dec 03 MRI was compromised by patient movement according to the radiologist report. Perhaps insurance will approve the MRI now.? Just wanted to let you know. Thanks, Kevin Crow [phone]
[2024-02-05 08:00] VITALS: BP 131/68; PULSE 79; RESP 20; TEMP 36.6; O2SAT 99
[2024-02-05 08:36] VITALS: BP 131/68
[2024-02-05] MEDS: Valsartan 160 MG TABLET PO (08:36)
[2024-02-05] MEDS: Escitalopram Oxalate 5 MG TABLET 15 MG PO (08:36)
[2024-02-05 08:37] VITALS: BP 131/68
[2024-02-05] MEDS: cloNIDine HCL 0.1 MG TABLET PO ×2 (08:37→20:12)
[2024-02-05] MEDS: LORazepam 1 MG TABLET PO ×4 (08:38→20:10)
--- NOTE | 2024-02-05 09:28 | HO.PSYCHPN ---
Subjective Subjective Date of Service: 02/05/24 Reason For Visit: Catatonia Interim History: Met with patient; discussed with team discussed ECT and patient asked numerous, relevant questions. Says he's still deciding about it, but more accepting of condition and need for treatment. REmains internally preoccupied and repeating words to himself under his breath. 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 10/04/23 Brain MRI w/wo contrast concludes the ventricles are normal sized and configuration for pt's age all other imaging non-contributory CTA head/neck (chronic small vessel ischemic disease likely) EEG within normal limites; no...findings suggestive of a neurodegenerative process.. Mental Status Exam Mental Status Exam Narrative: Pt is alert and oriented; behavior is cooperative, slowed, mildly guarded; patient is not in distress; dressed in casual attire, queen, glasses with adequate grooming hygiene; mood is described as depressed and affect congruent, constricted/blunted; eye contact appropriate; Speech is slowed and soft, repeats words under his breath; significant psychomotor retardation present; thought process is goal directed; can perseverate on certain topics; Thought content is on various topics he is anxious about; treatment; otherwise pertinent to relevant topics and without any delusional content, paranoid ideations or grandiosity; denies any SI/HI. Patient is internally preoccupied. Patients insight and judgment impaired Diagnostics Vital Signs (24Hr): Vital Signs - 24 hr 02/04/24 19:56 02/04/24 19:59 02/05/24 08:00 Temperature 97.5 F 97.9 F Pulse Rate 81 79 Respiratory Rate 16 20 Blood Pressure 121/74 121/74 131/68 Pulse Oximetry 100 99 Oxygen Delivery Method Room Air Room Air 02/05/24 08:36 02/05/24 08:37 Temperature Pulse Rate Respiratory Rate Blood Pressure 131/68 131/68 Pulse Oximetry Oxygen Delivery Method BMI result Body Mass Index 18.0 Medications Medications Current Medications Acetaminophen (Acetaminophen 325 Mg Tablet) 650 mg PO Q6H PRN PRN Reason: Headache/Pain Mild Scale (1-3) Al Hydroxide/Mg Hydroxide (Magnesium Hydrox/Alum Hydrox 30 Ml Oral.Susp) 30 ml PO Q6H PRN PRN Reason: Heartburn/Nausea Bisacodyl (Bisacodyl 5 Mg Tablet.Dr) 10 mg PO BEDTIME [facility] Last Admin: 02/04/24 19:58 Dose: 5 mg Clonidine HCl (Clonidine Hcl 0.1 Mg Tablet) 0.1 mg PO BID [facility]; Protocol Last Admin: 02/05/24 08:37 Dose: 0.1 mg Escitalopram Oxalate (Escitalopram Oxalate 5 Mg Tablet) 15 mg PO DAILY [facility] Last Admin: 02/05/24 08:36 Dose: 15 mg Hydroxyzine HCl (Hydroxyzine Hcl 25 Mg Tablet) 25 mg PO Q6H PRN PRN Reason: Anxiety Lorazepam (Lorazepam 1 Mg Tablet) 1 mg PO QID [facility] Last Admin: 02/05/24 08:38 Dose: 1 mg Magnesium Hydroxide (Milk Of Magnesia 30 Ml Oral.Susp) 30 ml PO DAILY PRN PRN Reason: Constipation Nicotine Polacrilex (Nicotine Polacrilex 2 Mg Gum) 4 mg BUCCAL Q2H PRN PRN Reason: Nicotine Cravings Polyethylene Glycol (Polyethylene Glycol 3350 17 Gm Powd.Pack) 17 gm PO DAILY PRN PRN Reason: Constipation Quetiapine Fumarate (Quetiapine Fumarate 50 Mg Tablet) 150 mg PO BEDTIME [facility] Last Admin: 02/04/24 19:58 Dose: 150 mg Trazodone HCl (Trazodone Hcl 50 Mg Tablet) 50 mg PO BEDTIME MRX1 PRN PRN Reason: Insomnia Last Admin: 02/02/24 20:58 Dose: 50 mg Valsartan (Valsartan 160 Mg Tablet) 160 mg PO DAILY [facility]; Protocol Last Admin: 02/05/24 08:36 Dose: 160 mg Allergies Allergies Allergy/AdvReac Type Severity Reaction Status Date / Time No Known Allergies Allergy Verified 01/31/24 19:31 Assessment & Plan Assessment & Plan (1) Catatonia: Status: Acute Code(s): F06.1 - Catatonic disorder due to known physiological condition (2) Major depressive disorder: Status: Acute Code(s): F32.9 - Major depressive disorder, single episode, unspecified (3) Preoperative clearance: Status: Acute Code(s): Z01.818 - Encounter for other preprocedural examination Plan HPI: The patient is a 68-year-old male, from his , living with his brother with a possible past history of frontotemporal dementia who was initially admitted at [facility] last month due to catatonia. Was treated with lorazepam with for improvement but later on taper it off. He was seen by his neurologist on January and recommended to go to the hospital since he relapsed on his catatonic symptoms. He was assessed in the emergency room of [facility], recommended the possibility of readmission with a facility that has ECT as a treatment option. On interview, the patient was pleasant, cooperative reported that he has been feeling more dysphoric and tired, he adamantly denies active suicidal ideation or paranoia. He looks hypoactive with psychomotor retardation. We discussed at length treatment options and he wants his brother to be involved in the decision making. We discussed options and he agreed to continue lorazepam on the meantime. His main concern is constipation, according to the nursing staff he was very somatically preoccupied with his bowel movements and medications. We are continuing Dulcolax that was started standing at [facility]. The patient is a very poor historian so we will try to gather more collateral information from his brother Hospital course: 02/02 He reports his depression /; flat and guarded refused to take Dulcolax last night; remains confused calm and hypoactive. . -meeting with his brother and another relative and apparently he does NOT have frontotemporal dementia. He had been chronically depressed and now he is nearly catatonic. Not at his baseline. 02/03 Patient appears depressed, slow moving, slow talking, thinking seems slowed. Certified Ophthalmic Technologist discussed symptoms and diagnosis of catatonia. Patient expressed ambivalence about accepting this diagnosis, wondering if it could be due to anxiety; also referenced an MRI that supposedly had benign brain lesion written in the impression and patient wondered if that could be the cause. Certified Ophthalmic Technologist shared how patient significantly improved per family and per patient when he took Ativan which is fairly diagnostic of catatonia. Discussed ECT and patient ambivalent but said he would consider. Patient reports and has been observed to repeat himself or repeat words over and over; patient observed to be internally preoccupied Formulation/clinical reasoning: Patient presents depressed and with significant catatonic symptoms. He is ambivalent about this diagnosis and treatment. Will consider ECT but currently hesitant. Will increase Ativan to 1 mg q.i.d. since patient did improve on 1 mg t.i.d. and declined once Ativan was discontinued (which is fairly diagnostic catatonia) Hospital course: 02/04 discussed ECT and patient asked numerous, relevant questions. Says he's still deciding about it, but more accepting of condition and need for treatment. REmains internally preoccupied and repeating words to himself under his breath. 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 10/04/23 Brain MRI w/wo contrast concludes the ventricles are normal sized and configuration for pt's age all other imaging non-contributory CTA head/neck (chronic small vessel ischemic disease likely) EEG within normal limites; no...findings suggestive of a neurodegenerative process.. Plan: Legal status? Invoked healthcare proxy Q 15 minute checks Will increase Ativan to 1 mg q.i.d. (patient did significantly improve on Ativan 1 mg t.i.d. though catatonia did not fully resolve; patient decompensated when Ativan was discontinued) -collateral from family -collateral from hospital were patient got MRI Patient educated on: diagnosis, medication risk/benefits and ECT Informed Consent: understands, does not understand and further education needed Reason for continued inpatient stay Substantial Risk for: inability to function Time Spent With Patient Time: Total time managing care of this patient today ____ minutes.
[2024-02-05 20:00] VITALS: BP 146/76; PULSE 73; RESP 18; TEMP 36.4; O2SAT 98
[2024-02-05] MEDS: QUEtiapine Fumarate 50 MG TABLET 150 MG PO (20:11)
[2024-02-05 20:12] VITALS: BP 146/76
[2024-02-05] MEDS: bisacodyL 5 MG TABLET.DR 10 MG PO (20:13)
[2024-02-06 08:06] VITALS: BP 134/78; PULSE 70; RESP 20; TEMP 37; O2SAT 100
[2024-02-06] MEDS: cloNIDine HCL 0.1 MG TABLET PO ×2 (08:08→20:29)
[2024-02-06] MEDS: Valsartan 160 MG TABLET PO (08:09)
[2024-02-06] MEDS: Escitalopram Oxalate 5 MG TABLET 15 MG PO (08:09)
[2024-02-06] MEDS: LORazepam 1 MG TABLET PO (08:10)
[2024-02-06 09:51] VITALS: BP 111/64; PULSE 72
--- NOTE | 2024-02-06 10:18 | P.PNPSI_ITS ---
Subjective Subjective Date of Service: 02/06/24 Reason For Visit: Catatonia Subjective Notes: Conditional Voluntary Healthcare Proxy: Yes Interim History: pt with obsessional anxiety rumination had fall last nite after sleep ativan had been inc to qid head ct neg s/p fall past brain mri unremarkable discussed with hcp ect questions answered pt given info on ect and lack of response to medication hcp gives consent pt scheduled for am Mental Status Exam Mental Status Exam Narrative: Pt is alert and oriented; behavior is cooperative, slowed, mildly guarded; patient is not in distress; dressed in casual attire, queen, glasses with adequate grooming hygiene; mood depressed anxious and affect constricted/blunted; eye contact appropriate; Speech is slowed and soft, repeats words under his breath; significant psychomotor retardation present; thought process is perseverative Thought content is on various topics he is anxious about; treatment; otherwise pertinent to relevant topics and without any delusional content, paranoid ideations or grandiosity; denies any SI/HI. Patient is internally preoccupied. Patients insight and judgment impaired difficulty weighing information Diagnostics Vital Signs (24Hr): Vital Signs - 24 hr 02/05/24 20:00 02/05/24 20:12 02/06/24 08:06 Temperature 97.5 F 98.6 F Pulse Rate 73 70 Respiratory Rate 18 20 Blood Pressure 146/76 H 146/76 H 134/78 Pulse Oximetry 98 100 Oxygen Delivery Method Room Air Room Air 02/06/24 09:51 Temperature Pulse Rate 72 Respiratory Rate Blood Pressure 111/64 Pulse Oximetry Oxygen Delivery Method BMI result Body Mass Index 18.0 Medications Medications Current Medications Acetaminophen (Acetaminophen 325 Mg Tablet) 650 mg PO Q6H PRN PRN Reason: Headache/Pain Mild Scale (1-3) Al Hydroxide/Mg Hydroxide (Magnesium Hydrox/Alum Hydrox 30 Ml Oral.Susp) 30 ml PO Q6H PRN PRN Reason: Heartburn/Nausea Bisacodyl (Bisacodyl 5 Mg Tablet.) 10 mg PO BEDTIME [facility] Last Admin: 02/05/24 20:13 Dose: 5 mg Clonidine HCl (Clonidine Hcl 0.1 Mg Tablet) 0.1 mg PO BID [facility]; Protocol Last Admin: 02/06/24 08:08 Dose: 0.1 mg Escitalopram Oxalate (Escitalopram Oxalate 5 Mg Tablet) 15 mg PO DAILY [facility] Last Admin: 02/06/24 08:09 Dose: 15 mg Hydroxyzine HCl (Hydroxyzine Hcl 25 Mg Tablet) 25 mg PO Q6H PRN PRN Reason: Anxiety Lorazepam (Lorazepam 1 Mg Tablet) 1 mg PO QID [facility] Last Admin: 02/06/24 08:10 Dose: 1 mg Magnesium Hydroxide (Milk Of Magnesia 30 Ml Oral.Susp) 30 ml PO DAILY PRN PRN Reason: Constipation Nicotine Polacrilex (Nicotine Polacrilex 2 Mg Gum) 4 mg BUCCAL Q2H PRN PRN Reason: Nicotine Cravings Polyethylene Glycol (Polyethylene Glycol 3350 17 Gm Powd.Pack) 17 gm PO DAILY PRN PRN Reason: Constipation Quetiapine Fumarate (Quetiapine Fumarate 50 Mg Tablet) 150 mg PO BEDTIME [facility] Last Admin: 02/05/24 20:11 Dose: 150 mg Trazodone HCl (Trazodone Hcl 50 Mg Tablet) 50 mg PO BEDTIME [facility]X1 PRN PRN Reason: Insomnia Last Admin: 02/02/24 20:58 Dose: 50 mg Valsartan (Valsartan 160 Mg Tablet) 160 mg PO DAILY [facility]; Protocol Last Admin: 02/06/24 08:09 Dose: 160 mg Allergies Allergies Allergy/AdvReac Type Severity Reaction Status Date / Time No Known Allergies Allergy Verified 01/31/24 19:31 Assessment & Plan Assessment & Plan (1) Catatonia: Status: Acute Code(s): F06.1 - Catatonic disorder due to known physiological condition (2) Major depressive disorder: Status: Acute Code(s): F32.9 - Major depressive disorder, single episode, unspecified (3) Preoperative clearance: Status: Acute Code(s): Z01.818 - Encounter for other preprocedural examination Plan HPI: The patient is a 68-year-old male, from his , living with his brother with a possible past history of frontotemporal dementia who was initially admitted at [facility] last month due to catatonia. Was treated with lorazepam with for improvement but later on taper it off. He was seen by his neurologist on January and recommended to go to the hospital since he relapsed on his catatonic symptoms. He was assessed in the emergency room of [facility], recommended the possibility of readmission with a facility that has ECT as a treatment option. On interview, the patient was pleasant, cooperative reported that he has been feeling more dysphoric and tired, he adamantly denies active suicidal ideation or paranoia. He looks hypoactive with psychomotor retardation. We discussed at length treatment options and he wants his brother to be involved in the decision making. We discussed options and he agreed to continue lorazepam on the dc antime. His main concern is constipation, according to the nursing staff he was very somatically preoccupied with his bowel movements and medications. We are continuing Dulcolax that was started standing at [facility]. The patient is a very poor historian so we will try to gather more collateral information from his brother Hospital course: 02/02 He reports his depression 09/22; flat and guarded refused to take Dulcolax last night; remains confused calm and hypoactive. . -meeting with his brother and another relative and apparently he does NOT have frontotemporal dementia. He had been chronically depressed and now he is nearly catatonic. Not at his baseline. 02/03 Patient appears depressed, slow moving, slow talking, thinking seems slowed. Grain I Farmworker discussed symptoms and diagnosis of catatonia. Patient expressed ambivalence about accepting this diagnosis, wondering if it could be due to anxiety; also referenced an MRI that supposedly had benign brain lesion written in the impression and patient wondered if that could be the cause. Grain I Farmworker shared how patient significantly improved per family and per patient when he took Ativan which is fairly diagnostic of catatonia. Discussed ECT and patient ambivalent but said he would consider. Patient reports and has been observed to repeat himself or repeat words over and over; patient observed to be internally preoccupied Formulation/clinical reasoning: Patient presents depressed and with significant catatonic symptoms. He is ambivalent about this diagnosis and treatment. Will consider ECT but currently hesitant. Will increase Ativan to 1 mg q.i.d. since patient did improve on 1 mg t.i.d. and declined once Ativan was discontinued (which is fairly diagnostic catatonia) Hospital course: 02/04 discussed ECT and patient asked numerous, relevant questions. Says he's still deciding about it, but more accepting of condition and need for treatment. REmains internally preoccupied and repeating words to himself under his breath. 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 10/04/23 Brain MRI w/wo contrast concludes the ventricles are normal sized and configuration for pt's age all other imaging non-contributory CTA head/neck (chronic small vessel ischemic disease likely) EEG within normal limites; no...findings suggestive of a neurodegenerative process.. Plan: Legal status? Invoked healthcare proxy Q 15 minute checks Will increase Ativan to 1 mg q.i.d. (patient did significantly improve on Ativan 1 mg t.i.d. though catatonia did not fully resolve; patient decompensated when Ativan was discontinued) -collateral from family -collateral from hospital were patient got MRI 02/06/24 ect scheduled for am hcp invoked but not affirmed hcp able to give informed consent pt scheduled for am med eval labs ekg reviewed unclear if pt will passively consent questions answered taper seroquel with catatonia lower ativan s/p fall head ct neg Reason for continued inpatient stay Substantial Risk for: inability to function and med/psych decompensation Time Spent With Patient Time: Total time managing care of this patient today ____ minutes.
[2024-02-06 11:31] VITALS: BMI 19.4
[2024-02-06] MEDS: LORazepam 0.5 MG TABLET PO (15:06)
[2024-02-06 20:00] VITALS: BP 134/68; PULSE 79; RESP 16; TEMP 36.6; O2SAT 97
[2024-02-06] MEDS: QUEtiapine Fumarate 100 MG TABLET PO (20:27)
[2024-02-06 20:29] VITALS: BP 134/68
[2024-02-06] MEDS: bisacodyL 5 MG TABLET.DR 10 MG PO (20:31)
[2024-02-07] VITALS (12 sets, daily range): BP systolic 108–158; BP diastolic 53–93; PULSE 58–80; RESP 16–18; TEMP 36.1–36.4; O2SAT 93–100
--- NOTE | 2024-02-07 08:48 | HO.PSYCHPN ---
Subjective Subjective Date of Service: 02/07/24 Reason For Visit: Catatonia Interim History: Patient; discussed with team; reviewed chart; discussed with Dr. Sahni saw patient before and after ECT. He denies side-effects other than slight headache and felt fine about procedure. He says a little better in that talking more spontaneously, less thought blocking, currently not repeating self...and overall looks for calm. Pt actually smiled and joked a little with functional tester typewriters, comfort tenorio. Discussed ECT and continuing ativan over the weekend. Pt ambivalent about ativan but will consider. Mental Status Exam Mental Status Exam Narrative: Pt is alert and oriented; behavior is cooperative, calm; patient is not in distress; dressed in casual attire, queen, glasses with adequate grooming hygiene; mood depressed anxious and affect still constricted/blunted but less so, with moments of inflection; eye contact appropriate; Speech is slowed and soft, repeats words under his breath; significant psychomotor retardation present; Thought content is on various topics he is anxious about; treatment; otherwise pertinent to relevant topics and without any delusional content, paranoid ideations or grandiosity; denies any SI/HI. Patient is internally preoccupied. Patients insight and judgment impaired but maybe improving. Diagnostics Vital Signs (24Hr): Vital Signs - 24 hr 02/06/24 09:51 02/06/24 20:00 02/06/24 20:29 Temperature 97.8 F Pulse Rate 72 79 Respiratory Rate 16 Blood Pressure 111/64 134/68 134/68 Pulse Oximetry 97 Oxygen Delivery Method Room Air 02/07/24 06:35 Temperature 97.5 F Pulse Rate 68 Respiratory Rate 16 Blood Pressure 158/78 H Pulse Oximetry 95 Oxygen Delivery Method BMI result Body Mass Index 19.4 Imaging Radiology Impressions: ITS Impressions Head CT 02/06/24 10:14 IMPRESSION: No acute fracture, bony calvarium. No acute intracranial hemorrhage. Electronically signed by: Jevon Mcmahon MD 02/06/2024 10:49 AM EDT Medications Medications Current Medications Acetaminophen (Acetaminophen 325 Mg Tablet) 650 mg PO Q6H PRN PRN Reason: Headache/Pain Mild Scale (1-3) Al Hydroxide/Mg Hydroxide (Magnesium Hydrox/Alum Hydrox 30 Ml Oral.Susp) 30 ml PO Q6H PRN PRN Reason: Heartburn/Nausea Bisacodyl (Bisacodyl 5 Mg Tablet.Dr) 10 mg PO BEDTIME CALLIE Last Admin: 02/06/24 20:31 Dose: 5 mg Clonidine HCl (Clonidine Hcl 0.1 Mg Tablet) 0.1 mg PO BID CALLIE; Protocol Last Admin: 02/06/24 20:29 Dose: 0.1 mg Escitalopram Oxalate (Escitalopram Oxalate 5 Mg Tablet) 15 mg PO DAILY CALLIE Last Admin: 02/06/24 08:09 Dose: 15 mg Hydroxyzine HCl (Hydroxyzine Hcl 25 Mg Tablet) 25 mg PO Q6H PRN PRN Reason: Anxiety Lorazepam (Lorazepam 0.5 Mg Tablet) 0.5 mg PO TID CALLIE Last Admin: 02/06/24 21:41 Dose: Not Given Magnesium Hydroxide (Milk Of Magnesia 30 Ml Oral.Susp) 30 ml PO DAILY PRN PRN Reason: Constipation Nicotine Polacrilex (Nicotine Polacrilex 2 Mg Gum) 4 mg BUCCAL Q2H PRN PRN Reason: Nicotine Cravings Polyethylene Glycol (Polyethylene Glycol 3350 17 Gm Powd.Pack) 17 gm PO DAILY PRN PRN Reason: Constipation Quetiapine Fumarate (Quetiapine Fumarate 100 Mg Tablet) 100 mg PO BEDTIME CALLIE Last Admin: 02/06/24 20:27 Dose: 100 mg Trazodone HCl (Trazodone Hcl 50 Mg Tablet) 50 mg PO BEDTIME MRX1 PRN PRN Reason: Insomnia Last Admin: 02/02/24 20:58 Dose: 50 mg Valsartan (Valsartan 160 Mg Tablet) 160 mg PO DAILY [facility]; Protocol Last Admin: 02/06/24 08:09 Dose: 160 mg Allergies Allergies Allergy/AdvReac Type Severity Reaction Status Date / Time No Known Allergies Allergy Verified 01/31/24 19:31 Assessment & Plan Assessment & Plan (1) Catatonia: Status: Acute Code(s): F06.1 - Catatonic disorder due to known physiological condition (2) Major depressive disorder: Status: Acute Code(s): F32.9 - Major depressive disorder, single episode, unspecified (3) Preoperative clearance: Status: Acute Code(s): Z01.818 - Encounter for other preprocedural examination Plan HPI: The patient is a 68-year-old male, from his , living with his brother with a possible past history of frontotemporal dementia who was initially admitted at [facility] last month due to catatonia. Was treated with lorazepam with for improvement but later on taper it off. He was seen by his neurologist on January and recommended to go to the hospital since he relapsed on his catatonic symptoms. He was assessed in the emergency room of [facility], recommended the possibility of readmission with a facility that has ECT as a treatment option. On interview, the patient was pleasant, cooperative reported that he has been feeling more dysphoric and tired, he adamantly denies active suicidal ideation or paranoia. He looks hypoactive with psychomotor retardation. We discussed at length treatment options and he wants his brother to be involved in the decision making. We discussed options and he agreed to continue lorazepam on the meantime. His main concern is constipation, according to the nursing staff he was very somatically preoccupied with his bowel movements and medications. We are continuing Dulcolax that was started standing at [facility]. The patient is a very poor historian so we will try to gather more collateral information from his brother Formulation/clinical reasoning: Patient presents depressed and with significant catatonic symptoms. He is ambivalent about this diagnosis and treatment. Will consider ECT but currently hesitant. Will increase Ativan to 1 mg q.i.d. since patient did improve on 1 mg t.i.d. and declined once Ativan was discontinued (which is fairly diagnostic catatonia) Hospital course: 02/02 He reports his depression /10; flat and guarded refused to take Dulcolax last night; remains confused calm and hypoactive. . -meeting with his brother and another relative. He had been chronically depressed and now he is nearly catatonic. Not at his baseline. -Brother says patient does NOT have frontotemporal dementia. -Records from [facility] says neurologist dx with frontotemporal dementia but brother says this was later undiagnosed. 02/03 Patient appears depressed, slow moving, slow talking, thinking seems slowed. Nursing Program Coordinator discussed symptoms and diagnosis of catatonia. Patient expressed ambivalence about accepting this diagnosis, wondering if it could be due to anxiety; also referenced an MRI that supposedly had benign brain lesion written in the impression and patient wondered if that could be the cause. Nursing Program Coordinator shared how patient significantly improved per family and per patient when he took Ativan which is fairly diagnostic of catatonia. Discussed ECT and patient ambivalent but said he would consider. Patient reports and has been observed to repeat himself or repeat words over and over; patient observed to be internally preoccupied 02/04 discussed ECT and patient asked numerous, relevant questions. Says he's still deciding about it, but more accepting of condition and need for treatment. REmains internally preoccupied and repeating words to himself under his breath. 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 10/04/23 Brain MRI w/wo contrast concludes the ventricles are normal sized and configuration for pt's age all other imaging non-contributory CTA head/neck (chronic small vessel ischemic disease likely) EEG within normal limites; no...findings suggestive of a neurodegenerative process.. 02/06 saw patient before and after ECT. He denies side-effects other than slight headache and felt fine about procedure. He says a little better in that talking more spontaneously, less thought blocking, currently not repeating self...and overall looks for calm. Pt actually smiled and joked a little with functional tester typewriters, comfort tenorio. Discussed ECT and continuing ativan over the weekend. Pt ambivalent about ativan but will consider. -continue ativan 0.5mg TID (would like higher dose but pt did have fall last night, more likely due to Seroquel, at 2am, so it was lowered); will continue to help prevent resurgence of catatonia) (was 1mg q.i.d on the unit, since patient did significantly improve as an outpt (and at other hospital) on Ativan 1 mg t.i.d. though catatonia did not fully resolve; patient decompensated when Ativan was discontinued) Plan: CV Invoked healthcare proxy Q 15 minute checks [employer] Ativan to 0.5mg TID (did fall last night at 2 am; though unlikely due to ativan, will lower for safety; pt also on Seroquel) -collateral from family -collateral from hospital were patient got MRI 02/06/24 ect scheduled for am hcp invoked but not affirmed hcp able to give informed consent pt scheduled for am med eval labs ekg reviewed unclear if pt will passively consent questions answered taper seroquel with catatonia lower ativan s/p fall head ct neg Patient educated on: diagnosis, medication risk/benefits and ECT Informed Consent: understands and further education needed Reason for continued inpatient stay Substantial Risk for: inability to function and rapid decompensation Time Spent With Patient Time: Total time managing care of this patient today ____ minutes.
--- NOTE | 2024-02-07 09:12 | PC.NURSE ---
Per Juany Ramos NP, pt is to be given only cardiac meds with sips of water on days of ECT.
[2024-02-07] MEDS: Valsartan 160 MG TABLET PO (09:13)
[2024-02-07] MEDS: cloNIDine HCL 0.1 MG TABLET PO ×2 (09:14→20:03)
--- NOTE | 2024-02-07 13:12 | P.CONAN_ITS ---
HPI - Anesthesia Eval Consult details Narrative: For ECT. [facility] Active Problems Active Problems: All Active Problems Preoperative clearance (Acute) Major depressive disorder (Acute) Medical clearance for psychiatric admission (Acute) Catatonia (Acute) Frontotemporal dementia (Acute) Past Medical History Medical History HTN (hypertension) Family History Family history of problems with anesthesia: No Surgical History History of Problems with Anesthesia: No Social History Social History Household Members: Other Household Members Other:: lives w/ his brother according to the pt. Housing: House Do you presently have visiting nurse or other home services: No Patient Tobacco Use Status: Never used Tobacco Smoked in Last 30 Days: No e-Cigarette/Vaping Use: Never Used Patient Interested in Nicotine Replacement: No (Pt said he never smoke.) Patient Given Instructions on How to Stop Smoking: No Second Hand Smoke Exposure: No Use of substances other than those prescribed or required for medical reasons: No Currently Displaying Signs/Symptoms of Drug Intoxication Withdrawal: No Have you been hit, kicked, punched, or otherwise hurt by someone within the past year? If so, by whom?: No Do you feel safe in your current relationship?: No Current Relationship Is there a partner from a previous relationship who is making you feel unsafe now?: No Are you made to feel afraid or neglected: No Advance Directives: No Advance Directives Information Provided: Yes Do you have thoughts of harming others: None Do you have a plan to hurt others: No Plan Recently lost weight without trying: No How much weight loss: Not applicable Eating poorly because of decreased appetite: No Nutrition screen score: 0 Poor oral hygiene: No service: No Sexual orientation: Straight/Heterosexual Meds Allergies Allergy/AdvReac Type Severity Reaction Status Date / Time No Known Allergies Allergy Verified 01/31/24 19:31 Active Medications: Current Medications Acetaminophen (Acetaminophen 325 Mg Tablet) 650 mg PO Q6H PRN PRN Reason: Headache/Pain Mild Scale (1-3) Al Hydroxide/Mg Hydroxide (Magnesium Hydrox/Alum Hydrox 30 Ml Oral.Susp) 30 ml PO Q6H PRN PRN Reason: Heartburn/Nausea Bisacodyl (Bisacodyl 5 Mg Tablet.Dr) 10 mg PO BEDTIME CALLIE Last Admin: 02/06/24 20:31 Dose: 5 mg Clonidine HCl (Clonidine Hcl 0.1 Mg Tablet) 0.1 mg PO BID [facility]; Protocol Last Admin: 02/07/24 09:14 Dose: 0.1 mg Escitalopram Oxalate (Escitalopram Oxalate 5 Mg Tablet) 15 mg PO DAILY [facility] Last Admin: 02/07/24 11:44 Dose: Not Given Hydroxyzine HCl (Hydroxyzine Hcl 25 Mg Tablet) 25 mg PO Q6H PRN PRN Reason: Anxiety Lorazepam (Lorazepam 0.5 Mg Tablet) 0.5 mg PO TID [facility] Last Admin: 02/07/24 11:44 Dose: Not Given Lorazepam (Lorazepam 0.5 Mg Tablet) 0.5 mg PO DAILY PRN PRN Reason: anxiety Magnesium Hydroxide (Milk Of Magnesia 30 Ml Oral.Susp) 30 ml PO DAILY PRN PRN Reason: Constipation Nicotine Polacrilex (Nicotine Polacrilex 2 Mg Gum) 4 mg BUCCAL Q2H PRN PRN Reason: Nicotine Cravings Polyethylene Glycol (Polyethylene Glycol 3350 17 Gm Powd.Pack) 17 gm PO DAILY PRN PRN Reason: Constipation Quetiapine Fumarate (Quetiapine Fumarate 100 Mg Tablet) 100 mg PO BEDTIME CALLIE Last Admin: 02/06/24 20:27 Dose: 100 mg Trazodone HCl (Trazodone Hcl 50 Mg Tablet) 50 mg PO BEDTIME MRX1 PRN PRN Reason: Insomnia Last Admin: 02/02/24 20:58 Dose: 50 mg Valsartan (Valsartan 160 Mg Tablet) 160 mg PO DAILY [facility]; Protocol Last Admin: 02/07/24 09:13 Dose: 160 mg Home Medications ?Medication ?Instructions ?Recorded ?Confirmed ?Last Taken ?Type bisacodyl 5 mg tablet,delayed 10 mg PO BEDTIME 01/31/24 01/31/24 01/30/24 21:00 History release clonidine HCl 0.1 mg tablet 0.1 mg PO BID 01/31/24 01/31/24 Unknown History escitalopram oxalate 5 mg tablet 15 mg PO DAILY 01/31/24 01/31/24 Unknown History lorazepam 1 mg tablet (Ativan) 1 mg PO TID 01/31/24 01/31/24 Unknown History polyethylene glycol 3350 17 gram 17 g PO DAILY PRN Constipation 01/31/24 01/31/24 01/29/24 20:00 History oral powder packet quetiapine 150 mg tablet 150 mg PO BEDTIME 01/31/24 01/31/24 Unknown History valsartan 160 mg tablet 160 mg PO DAILY 01/31/24 01/31/24 Unknown History Exam Height,Weight and Vital Signs: Height 6 ft Weight 64.954 kg Last Vital Signs Temp 97.6 F 02/07/24 12:07 Pulse 58 02/07/24 12:07 Resp 18 02/07/24 12:07 BP 136/76 02/07/24 12:07 Pulse Ox 100 02/07/24 12:07 O2 Del Method Room Air 02/07/24 12:07 Pertinent Lab Results Pertinent Lab Results: Laboratory Tests 02/01/24 07:03 Estimat Average Glucose 94 Hemoglobin A1c % 4.9 Magnesium 1.9 Triglycerides 60 Cholesterol 213 H LDL Cholesterol, Calc 120 H HDL Cholesterol 81 Vitamin B12 1141 H Folate 9.1 TSH 3.50 Free T4 1.00 Airway Mallampati Class: II TM Dist: >3cm Neck ROM: Full Loose/Missing/Broken Teeth: No Heart: ok Lungs: ok Assessment and Plan Assessment Anesthesia Assessment: Anesthesia Plan Discussed and Chart Reviewed Final Anesthetic Review Family History of Problems with Anesthesia: No History of Problems with Anesthesia: No NPO: Yes ASA Class: III Final Preanesthetic Review: No Changes in Pt Med Stat, Meds/Allgs Chart Reviewed, Consent Obtained/Reviewed and Anes Risks/Benef Reviewed Patient Risk: Intermediate Procedure Risk: Intermediate Anesthetic Plan Anesthetic Plan: GA and Agree w/ Assess. and Plan Disposition: Standard PACU
--- NOTE | 2024-02-07 13:36 | MHC.SHP ---
Pre-Procedural Eval Section A - 24 Hr Update-Section A only Date of Service: 02/07/24 The patient is an INPATIENT: Yes Changes since office visit: Yes New Medical Problems, Yes Changes in Medication and Yes Patient answered all questions; No Cold of Flu in the past 2 weeks The patient has been examined within 24 hours of the surgical procedure. The History & Physical has been completed within 30 days and I have reviewed it.: Yes Section B - Complete if H&P > 30 days Chief Complaint: Catatonia Allergies: Allergies Allergy/AdvReac Type Severity Reaction Status Date / Time No Known Allergies Allergy Verified 01/31/24 19:31 Plan I have reviewed the history and physical and performed a pertinent physical examination on my patient. No changes have occurred unless specified. Time Spent With Patient Time: Total time managing care of this patient today ____ minutes.
--- NOTE | 2024-02-07 13:37 | HO.ECTPROC ---
ECT Procedure Note Diagnosis/Treatment Date of Service: 02/07/24 Diagnosis: Catatonia Current Treatment Number: 1 Treatment: Series Interval Clinical Notes: Pts brother able to give informed consent pt also consented was done BF 0.25 100 required propofol to stop sz will decrase next tx Time: Total time managing care of this patient today ____ minutes. ECT Settings Device: THYMATRON DGx Electrode Placement: Bifrontal Program/Pulse Width: 0.25 Energy Percent: 100 Seizure Duration By EEG (in seconds): 91 Medications Administration General Anesthetic: Etomidate (10) Muscle Relaxant: Succinylcholine (80) Ancillary Medications Miscillaneous Medications: Propofol (30 plus 30 ) Treatment Recommendations Program/Pulse Width: 0.25 Energy Percent: 50
[2024-02-07] MEDS: LORazepam 0.5 MG TABLET PO ×2 (15:52→20:02)
[2024-02-07] MEDS: bisacodyL 5 MG TABLET.DR 10 MG PO (20:01)
[2024-02-07] MEDS: QUEtiapine Fumarate 100 MG TABLET PO (20:02)
[2024-02-07] MEDS: Acetaminophen 325 MG TABLET 650 MG PO (20:04)
[2024-02-08 08:59] VITALS: BP 105/55; PULSE 75; RESP 16; TEMP 36.6; O2SAT 99
[2024-02-08] MEDS: Escitalopram Oxalate 5 MG TABLET 15 MG PO (09:00)
[2024-02-08] MEDS: LORazepam 0.5 MG TABLET PO ×3 (09:00→20:28)
[2024-02-08] MEDS: Valsartan 160 MG TABLET PO (09:00)
[2024-02-08] MEDS: cloNIDine HCL 0.1 MG TABLET PO ×2 (09:01→20:28)
[2024-02-08 20:00] VITALS: BP 127/70; PULSE 73; RESP 16; TEMP 36.3; O2SAT 98
--- NOTE | 2024-02-08 20:10 | HO.PSYCHPN ---
Subjective Subjective Date of Service: 02/08/24 Reason For Visit: Catatonia Subjective Notes: Conditional Voluntary Interim History: Pt slept through the night. Pt's speech appeared more fluid, reports he is anxious about ECT, somewhat ruminative about whether ect will work or not. discussed ambivalence as symptom. His affect somewhat constricted. No psychosis or delusions. he has been visible on the unit, social with select peers. No behavioral concerns. He does describe mood as depressed prior to coming here and in the past months. Review of Systems Review of Systems Patient has no acute medical complaints at this time. Yes all other systems are reviewed and are negative Constitutional: Denies body ache(s), Denies chills, Denies fever(s) and Denies headache(s) Eyes: Denies change in vision and Denies loss of vision Denies headache(s) Cardiovascular: Denies rapid heart rate, Denies lightheadedness and Denies dyspnea Respiratory: Denies cough and Denies dyspnea Gastrointestinal: Denies nausea and Denies vomiting Skin/Breast: Denies rash Denies headache(s), Denies loss of vision and Denies convulsions Mental Status Exam Mental Status Exam Narrative: Pt is alert and oriented; behavior is cooperative, calm; patient is not in distress; dressed in casual attire, queen, glasses with adequate grooming hygiene; mood depressed anxious and affect still constricted/blunted but less so, with moments of inflection; eye contact appropriate; Speech is slowed and soft, repeats words under his breath; significant psychomotor retardation present; Thought content is on various topics he is anxious about; treatment; otherwise pertinent to relevant topics and without any delusional content, paranoid ideations or grandiosity; denies any SI/HI. Patient is internally preoccupied. Patients insight and judgment impaired but maybe improving. Patient Appearance: Appropriate Patient Orientation: Person and Situation Level of Consciousness: Awake and Appropriate Patient Behavior: Guarded and Passive Mood Description: Withdrawn Affect Description: Constricted Patient Cognition Impaired: Yes Ability to Follow Directions: Good Speech Pattern: Clear Diagnostics Vital Signs (24Hr): Vital Signs - 24 hr 02/08/24 08:59 Temperature 98 F Pulse Rate 75 Respiratory Rate 16 Blood Pressure 105/55 L Pulse Oximetry 99 Oxygen Delivery Method Room Air BMI result Body Mass Index 19.4 Imaging Radiology Impressions: ITS Impressions Head CT 10/24/24 10:14 IMPRESSION: No acute fracture, bony calvarium. No acute intracranial hemorrhage. Electronically signed by: Jevon Mcmahon MD 02/06/2024 10:49 AM EDT Medications Medications Current Medications Acetaminophen (Acetaminophen 325 Mg Tablet) 650 mg PO Q6H PRN PRN Reason: Headache/Pain Mild Scale (1-3) Last Admin: 02/07/24 20:04 Dose: 650 mg Al Hydroxide/Mg Hydroxide (Magnesium Hydrox/Alum Hydrox 30 Ml Oral.Susp) 30 ml PO Q6H PRN PRN Reason: Heartburn/Nausea Bisacodyl (Bisacodyl 5 Mg Tablet.Dr) 10 mg PO BEDTIME CALLIE Last Admin: 02/07/24 20:01 Dose: 10 mg Clonidine HCl (Clonidine Hcl 0.1 Mg Tablet) 0.1 mg PO BID [facility]; Protocol Last Admin: 02/08/24 09:01 Dose: 0.1 mg Escitalopram Oxalate (Escitalopram Oxalate 5 Mg Tablet) 15 mg PO DAILY CALLIE Last Admin: 02/08/24 09:00 Dose: 15 mg Hydroxyzine HCl (Hydroxyzine Hcl 25 Mg Tablet) 25 mg PO Q6H PRN PRN Reason: Anxiety Lorazepam (Lorazepam 0.5 Mg Tablet) 0.5 mg PO TID CALLIE Last Admin: 02/08/24 15:09 Dose: 0.5 mg Lorazepam (Lorazepam 0.5 Mg Tablet) 0.5 mg PO DAILY PRN PRN Reason: anxiety Magnesium Hydroxide (Milk Of Magnesia 30 Ml Oral.Susp) 30 ml PO DAILY PRN PRN Reason: Constipation Nicotine Polacrilex (Nicotine Polacrilex 2 Mg Gum) 4 mg BUCCAL Q2H PRN PRN Reason: Nicotine Cravings Polyethylene Glycol (Polyethylene Glycol 3350 17 Gm Powd.Pack) 17 gm PO DAILY PRN PRN Reason: Constipation Quetiapine Fumarate (Quetiapine Fumarate 100 Mg Tablet) 100 mg PO BEDTIME CALLIE Last Admin: 02/07/24 20:02 Dose: 100 mg Trazodone HCl (Trazodone Hcl 50 Mg Tablet) 50 mg PO BEDTIME MRX1 PRN PRN Reason: Insomnia Last Admin: 02/02/24 20:58 Dose: 50 mg Valsartan (Valsartan 160 Mg Tablet) 160 mg PO DAILY CALLIE; Protocol Last Admin: 02/08/24 09:00 Dose: 160 mg Allergies Allergies Allergy/AdvReac Type Severity Reaction Status Date / Time No Known Allergies Allergy Verified 01/31/24 19:31 Assessment & Plan Assessment & Plan (1) Catatonia: Status: Acute Code(s): F06.1 - Catatonic disorder due to known physiological condition (2) Major depressive disorder: Status: Acute Code(s): F32.9 - Major depressive disorder, single episode, unspecified (3) Preoperative clearance: Status: Acute Code(s): Z01.818 - Encounter for other preprocedural examination Plan HPI: The patient is a 68-year-old male, from his , living with his brother with a possible past history of frontotemporal dementia who was initially admitted at [facility] last month due to catatonia. Was treated with lorazepam with for improvement but later on taper it off. He was seen by his neurologist on January and recommended to go to the hospital since he relapsed on his catatonic symptoms. He was assessed in the emergency room of [facility], recommended the possibility of readmission with a facility that has ECT as a treatment option. On interview, the patient was pleasant, cooperative reported that he has been feeling more dysphoric and tired, he adamantly denies active suicidal ideation or paranoia. He looks hypoactive with psychomotor retardation. We discussed at length treatment options and he wants his brother to be involved in the decision making. We discussed options and he agreed to continue lorazepam on the meantime. His main concern is constipation, according to the nursing staff he was very somatically preoccupied with his bowel movements and medications. We are continuing Dulcolax that was started standing at [facility]. The patient is a very poor historian so we will try to gather more collateral information from his brother Formulation/clinical reasoning: Patient presents depressed and with significant catatonic symptoms. He is ambivalent about this diagnosis and treatment. Will consider ECT but currently hesitant. Will increase Ativan to 1 mg q.i.d. since patient did improve on 1 mg t.i.d. and declined once Ativan was discontinued (which is fairly diagnostic catatonia) Hospital course: 02/02 He reports his depression /10; flat and guarded refused to take Dulcolax last night; remains confused calm and hypoactive. . -meeting with his brother and another relative. He had been chronically depressed and now he is nearly catatonic. Not at his baseline. -Brother says patient does NOT have frontotemporal dementia. -Records from [facility] says neurologist dx with frontotemporal dementia but brother says this was later undiagnosed. 02/03 Patient appears depressed, slow moving, slow talking, thinking seems slowed. Supervisor Refining discussed symptoms and diagnosis of catatonia. Patient expressed ambivalence about accepting this diagnosis, wondering if it could be due to anxiety; also referenced an MRI that supposedly had benign brain lesion written in the impression and patient wondered if that could be the cause. Supervisor Refining shared how patient significantly improved per family and per patient when he took Ativan which is fairly diagnostic of catatonia. Discussed ECT and patient ambivalent but said he would consider. Patient reports and has been observed to repeat himself or repeat words over and over; patient observed to be internally preoccupied 02/04 discussed ECT and patient asked numerous, relevant questions. Says he's still deciding about it, but more accepting of condition and need for treatment. REmains internally preoccupied and repeating words to himself under his breath. 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 10/04/23 Brain MRI w/wo contrast concludes the ventricles are normal sized and configuration for pt's age all other imaging non-contributory CTA head/neck (chronic small vessel ischemic disease likely) EEG within normal limites; no...findings suggestive of a neurodegenerative process.. 02/06 saw patient before and after ECT. He denies side-effects other than slight headache and felt fine about procedure. He says a little better in that talking more spontaneously, less thought blocking, currently not repeating self...and overall looks for calm. Pt actually smiled and joked a little with radio news writercomfort. Discussed ECT and continuing ativan over the weekend. Pt ambivalent about ativan but will consider. -continue ativan 0.5mg TID (would like higher dose but pt did have fall last night, more likely due to Seroquel, at 2am, so it was lowered); will continue to help prevent resurgence of catatonia) (was 1mg q.i.d on the unit, since patient did significantly improve as an outpt (and at other hospital) on Ativan 1 mg t.i.d. though catatonia did not fully resolve; patient decompensated when Ativan was discontinued) 02/07 continue tx. Plan: CV Invoked healthcare proxy Q 15 minute checks [employer] Ativan to 0.5mg TID (did fall last night at 2 am; though unlikely due to ativan, will lower for safety; pt also on Seroquel) -collateral from family -collateral from hospital were patient got MRI 02/06/24 ect scheduled for am hcp invoked but not affirmed hcp able to give informed consent pt scheduled for am med eval labs ekg reviewed unclear if pt will passively consent questions answered taper seroquel with catatonia lower ativan s/p fall head ct neg Reason for continued inpatient stay Substantial Risk for: inability to function Time Spent With Patient Time: Total time managing care of this patient today ____ minutes.
[2024-02-08 20:28] VITALS: BP 127/70
[2024-02-08] MEDS: QUEtiapine Fumarate 100 MG TABLET PO (20:29)
[2024-02-08] MEDS: bisacodyL 5 MG TABLET.DR 10 MG PO (20:29)
[2024-02-09 08:00] VITALS: BP 105/56; PULSE 69; RESP 20; TEMP 36.5; O2SAT 97
[2024-02-09] MEDS: Escitalopram Oxalate 5 MG TABLET 15 MG PO (08:32)
[2024-02-09] MEDS: Valsartan 160 MG TABLET PO (08:33)
[2024-02-09] MEDS: cloNIDine HCL 0.1 MG TABLET PO ×2 (08:33→20:29)
[2024-02-09] MEDS: LORazepam 0.5 MG TABLET PO ×2 (08:34→15:39)
--- NOTE | 2024-02-09 16:01 | HO.PSYCHPN ---
Subjective Subjective Date of Service: 02/09/24 Reason For Visit: Catatonia Subjective Notes: Conditional Voluntary Interim History: Slept through the night. more visible, thinks ECT may be working, as he has not need ativan to get out or eat. speech much more spontaneous. No SI/HI. rumination still about whether he should be here and about tx, which again was explained to pt ambivalence is a symptoms of his condition. Review of Systems Review of Systems Patient has no acute medical complaints at this time. Yes all other systems are reviewed and are negative Constitutional: Denies body ache(s), Denies chills, Denies fever(s) and Denies headache(s) Eyes: Denies change in vision and Denies loss of vision Denies headache(s) Cardiovascular: Denies rapid heart rate, Denies lightheadedness and Denies dyspnea Respiratory: Denies cough and Denies dyspnea Gastrointestinal: Denies nausea and Denies vomiting Skin/Breast: Denies rash Denies headache(s), Denies loss of vision and Denies convulsions Mental Status Exam Mental Status Exam Narrative: Pt is alert and oriented; behavior is cooperative, more friendly, not guarded, calm; patient is not in distress; dressed in casual attire with adequate hygiene; mood is described as ok and affect congruent, more naturally expressive; eye contact appropriate; Speech is a little slowed and soft, but normal and not pressured; no psychomotor retardation present; thought process is organized and goal directed; Thought content is on treatment; otherwise pertinent to relevant topics and without any delusional content, paranoid ideations or grandiosity; denies any SI/HI. No AVH. Patients insight and judgment impaired but improved. Patient Appearance: Appropriate Patient Orientation: Person and Situation Level of Consciousness: Awake and Appropriate Patient Behavior: Guarded and Passive Mood Description: Withdrawn Affect Description: Constricted Patient Cognition Impaired: Yes Ability to Follow Directions: Good Speech Pattern: Clear Diagnostics Vital Signs (24Hr): Vital Signs - 24 hr 02/08/24 20:00 02/08/24 20:28 02/09/24 08:00 Temperature 97.4 F 97.7 F Pulse Rate 73 69 Respiratory Rate 16 20 Blood Pressure 127/70 127/70 105/56 L Pulse Oximetry 98 97 Oxygen Delivery Method Room Air Room Air BMI result Body Mass Index 19.4 Imaging Radiology Impressions: ITS Impressions Head CT 02/06/24 10:14 IMPRESSION: No acute fracture, bony calvarium. No acute intracranial hemorrhage. Electronically signed by: Jevon Mcmahon MD 02/06/2024 10:49 AM EDT Medications Medications Current Medications Acetaminophen (Acetaminophen 325 Mg Tablet) 650 mg PO Q6H PRN PRN Reason: Headache/Pain Mild Scale (1-3) Last Admin: 02/07/24 20:04 Dose: 650 mg Al Hydroxide/Mg Hydroxide (Magnesium Hydrox/Alum Hydrox 30 Ml Oral.Susp) 30 ml PO Q6H PRN PRN Reason: Heartburn/Nausea Bisacodyl (Bisacodyl 5 Mg Tablet.Dr) 10 mg PO BEDTIME CALLIE Last Admin: 02/08/24 20:29 Dose: 10 mg Clonidine HCl (Clonidine Hcl 0.1 Mg Tablet) 0.1 mg PO BID CALLIE; Protocol Last Admin: 02/09/24 08:33 Dose: 0.1 mg Escitalopram Oxalate (Escitalopram Oxalate 5 Mg Tablet) 15 mg PO DAILY CALLIE Last Admin: 02/09/24 08:32 Dose: 15 mg Hydroxyzine HCl (Hydroxyzine Hcl 25 Mg Tablet) 25 mg PO Q6H PRN PRN Reason: Anxiety Lorazepam (Lorazepam 0.5 Mg Tablet) 0.5 mg PO TID CALLIE Last Admin: 02/09/24 15:39 Dose: 0.5 mg Lorazepam (Lorazepam 0.5 Mg Tablet) 0.5 mg PO DAILY PRN PRN Reason: anxiety Magnesium Hydroxide (Milk Of Magnesia 30 Ml Oral.Susp) 30 ml PO DAILY PRN PRN Reason: Constipation Nicotine Polacrilex (Nicotine Polacrilex 2 Mg Gum) 4 mg BUCCAL Q2H PRN PRN Reason: Nicotine Cravings Polyethylene Glycol (Polyethylene Glycol 3350 17 Gm Powd.Pack) 17 gm PO DAILY PRN PRN Reason: Constipation Quetiapine Fumarate (Quetiapine Fumarate 100 Mg Tablet) 100 mg PO BEDTIME CALLIE Last Admin: 02/08/24 20:29 Dose: 100 mg Trazodone HCl (Trazodone Hcl 50 Mg Tablet) 50 mg PO BEDTIME MRX1 PRN PRN Reason: Insomnia Last Admin: 02/02/24 20:58 Dose: 50 mg Valsartan (Valsartan 160 Mg Tablet) 160 mg PO DAILY CALLIE; Protocol Last Admin: 02/09/24 08:33 Dose: 160 mg Allergies Allergies Allergy/AdvReac Type Severity Reaction Status Date / Time No Known Allergies Allergy Verified 01/31/24 19:31 Assessment & Plan Assessment & Plan (1) Catatonia: Status: Acute Code(s): F06.1 - Catatonic disorder due to known physiological condition (2) Major depressive disorder: Status: Acute Code(s): F32.9 - Major depressive disorder, single episode, unspecified (3) Preoperative clearance: Status: Acute Code(s): Z01.818 - Encounter for other preprocedural examination Plan HPI: The patient is a 68-year-old male, from his , living with his brother with a possible past history of frontotemporal dementia who was initially admitted at [facility] last month due to catatonia. Was treated with lorazepam with for improvement but later on taper it off. He was seen by his neurologist on January and recommended to go to the hospital since he relapsed on his catatonic symptoms. He was assessed in the emergency room of [facility], recommended the possibility of readmission with a facility that has ECT as a treatment option. On interview, the patient was pleasant, cooperative reported that he has been feeling more dysphoric and tired, he adamantly denies active suicidal ideation or paranoia. He looks hypoactive with psychomotor retardation. We discussed at length treatment options and he wants his brother to be involved in the decision making. We discussed options and he agreed to continue lorazepam on the meantime. His main concern is constipation, according to the nursing staff he was very somatically preoccupied with his bowel movements and medications. We are continuing Dulcolax that was started standing at [facility]. The patient is a very poor historian so we will try to gather more collateral information from his brother Formulation/clinical reasoning: Patient presents depressed and with significant catatonic symptoms. He is ambivalent about this diagnosis and treatment. Will consider ECT but currently hesitant. Will increase Ativan to 1 mg q.i.d. since patient did improve on 1 mg t.i.d. and declined once Ativan was discontinued (which is fairly diagnostic catatonia) Hospital course: 02/02 He reports his depression /10; flat and guarded refused to take Dulcolax last night; remains confused calm and hypoactive. . -meeting with his brother and another relative. He had been chronically depressed and now he is nearly catatonic. Not at his baseline. -Brother says patient does NOT have frontotemporal dementia. -Records from [facility] says neurologist dx with frontotemporal dementia but brother says this was later undiagnosed. 02/03 Patient appears depressed, slow moving, slow talking, thinking seems slowed. Financial Services Education Consultant discussed symptoms and diagnosis of catatonia. Patient expressed ambivalence about accepting this diagnosis, wondering if it could be due to anxiety; also referenced an MRI that supposedly had benign brain lesion written in the impression and patient wondered if that could be the cause. Financial Services Education Consultant shared how patient significantly improved per family and per patient when he took Ativan which is fairly diagnostic of catatonia. Discussed ECT and patient ambivalent but said he would consider. Patient reports and has been observed to repeat himself or repeat words over and over; patient observed to be internally preoccupied 02/04 discussed ECT and patient asked numerous, relevant questions. Says he's still deciding about it, but more accepting of condition and need for treatment. REmains internally preoccupied and repeating words to himself under his breath. 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 10/04/23 Brain MRI w/wo contrast concludes the ventricles are normal sized and configuration for pt's age all other imaging non-contributory CTA head/neck (chronic small vessel ischemic disease likely) EEG within normal limites; no...findings suggestive of a neurodegenerative process.. 02/06 saw patient before and after ECT. He denies side-effects other than slight headache and felt fine about procedure. He says a little better in that talking more spontaneously, less thought blocking, currently not repeating self...and overall looks for calm. Pt actually smiled and joked a little with magnetic tape typewriter operator, comfort first. Discussed ECT and continuing ativan over the weekend. Pt ambivalent about ativan but will consider. -continue ativan 0.5mg TID (would like higher dose but pt did have fall last night, more likely due to Seroquel, at 2am, so it was lowered); will continue to help prevent resurgence of catatonia) (was 1mg q.i.d on the unit, since patient did significantly improve as an outpt (and at other hospital) on Ativan 1 mg t.i.d. though catatonia did not fully resolve; patient decompensated when Ativan was discontinued) 02/07 continue tx. 02/08 continue tx. Plan: CV Invoked healthcare proxy Q 15 minute checks [employer] Ativan to 0.5mg TID (did fall last night at 2 am; though unlikely due to ativan, will lower for safety; pt also on Seroquel) -collateral from family -collateral from hospital were patient got MRI 02/06/24 ect scheduled for am hcp invoked but not affirmed hcp able to give informed consent pt scheduled for am med eval labs ekg reviewed unclear if pt will passively consent questions answered taper seroquel with catatonia lower ativan s/p fall head ct neg Reason for continued inpatient stay Substantial Risk for: inability to function Time Spent With Patient Time: Total time managing care of this patient today ____ minutes.
[2024-02-09 20:00] VITALS: BP 121/69; PULSE 68; RESP 18; TEMP 37; O2SAT 99
[2024-02-09] MEDS: bisacodyL 5 MG TABLET.DR 10 MG PO (20:29)
[2024-02-09] MEDS: QUEtiapine Fumarate 100 MG TABLET PO (20:29)
[2024-02-10] VITALS (12 sets, daily range): BP systolic 101–157; BP diastolic 57–86; PULSE 47–75; RESP 16–18; TEMP 36.1–36.9; O2SAT 98–100
[2024-02-10] MEDS: Valsartan 160 MG TABLET PO (10:21)
[2024-02-10] MEDS: Escitalopram Oxalate 5 MG TABLET 15 MG PO (10:22)
[2024-02-10] MEDS: cloNIDine HCL 0.1 MG TABLET PO ×2 (10:22→20:02)
--- NOTE | 2024-02-10 12:26 | MHC.CLN ---
F/U WEIGHT=65 KG WITH BMI 19.4. ADM BMI=18. DOES NOT WANT SUPPLEMENT. RECEIVING ECT. RD TO FOLLOW WEEKLY.
--- NOTE | 2024-02-10 13:03 | P.CONAN_ITS ---
[facility] Active Problems Active Problems: All Active Problems Preoperative clearance (Acute) Major depressive disorder (Acute) Medical clearance for psychiatric admission (Acute) Catatonia (Acute) Frontotemporal dementia (Acute) Past Medical History Medical History HTN (hypertension) Family History Family history of problems with anesthesia: No Surgical History History of Problems with Anesthesia: No Social History Social History Household Members: Other Household Members Other:: lives w/ his brother according to the pt. Housing: House Do you presently have visiting nurse or other home services: No Patient Tobacco Use Status: Never used Tobacco Smoked in Last 30 Days: No e-Cigarette/Vaping Use: Never Used Patient Interested in Nicotine Replacement: No (Pt said he never smoke.) Patient Given Instructions on How to Stop Smoking: No Second Hand Smoke Exposure: No Use of substances other than those prescribed or required for medical reasons: No Currently Displaying Signs/Symptoms of Drug Intoxication Withdrawal: No Have you been hit, kicked, punched, or otherwise hurt by someone within the past year? If so, by whom?: No Do you feel safe in your current relationship?: No Current Relationship Is there a partner from a previous relationship who is making you feel unsafe now?: No Are you made to feel afraid or neglected: No Advance Directives: No Advance Directives Information Provided: Yes Do you have thoughts of harming others: None Do you have a plan to hurt others: No Plan Recently lost weight without trying: No How much weight loss: Not applicable Eating poorly because of decreased appetite: No Nutrition screen score: 0 Poor oral hygiene: No service: No Sexual orientation: Straight/Heterosexual Meds Allergies Allergy/AdvReac Type Severity Reaction Status Date / Time No Known Allergies Allergy Verified 01/31/24 19:31 Active Medications: Current Medications Acetaminophen (Acetaminophen 325 Mg Tablet) 650 mg PO Q6H PRN PRN Reason: Headache/Pain Mild Scale (1-3) Last Admin: 02/07/24 20:04 Dose: 650 mg Al Hydroxide/Mg Hydroxide (Magnesium Hydrox/Alum Hydrox 30 Ml Oral.Susp) 30 ml PO Q6H PRN PRN Reason: Heartburn/Nausea Bisacodyl (Bisacodyl 5 Mg Tablet.Dr) 10 mg PO BEDTIME CALLIE Last Admin: 02/09/24 20:29 Dose: 10 mg Clonidine HCl (Clonidine Hcl 0.1 Mg Tablet) 0.1 mg PO BID [facility]; Protocol Last Admin: 02/10/24 10:22 Dose: 0.1 mg Escitalopram Oxalate (Escitalopram Oxalate 5 Mg Tablet) 15 mg PO DAILY CALLIE Last Admin: 02/10/24 10:22 Dose: 15 mg Hydroxyzine HCl (Hydroxyzine Hcl 25 Mg Tablet) 25 mg PO Q6H PRN PRN Reason: Anxiety Lorazepam (Lorazepam 0.5 Mg Tablet) 0.5 mg PO TID [facility] Last Admin: 02/10/24 10:12 Dose: Not Given Lorazepam (Lorazepam 0.5 Mg Tablet) 0.5 mg PO DAILY PRN PRN Reason: anxiety Magnesium Hydroxide (Milk Of Magnesia 30 Ml Oral.Susp) 30 ml PO DAILY PRN PRN Reason: Constipation Nicotine Polacrilex (Nicotine Polacrilex 2 Mg Gum) 4 mg BUCCAL Q2H PRN PRN Reason: Nicotine Cravings Polyethylene Glycol (Polyethylene Glycol 3350 17 Gm Powd.Pack) 17 gm PO DAILY PRN PRN Reason: Constipation Quetiapine Fumarate (Quetiapine Fumarate 100 Mg Tablet) 100 mg PO BEDTIME [facility] Last Admin: 02/09/24 20:29 Dose: 100 mg Trazodone HCl (Trazodone Hcl 50 Mg Tablet) 50 mg PO BEDTIME MRX1 PRN PRN Reason: Insomnia Last Admin: 02/02/24 20:58 Dose: 50 mg Valsartan (Valsartan 160 Mg Tablet) 160 mg PO DAILY [facility]; Protocol Last Admin: 02/10/24 10:21 Dose: 160 mg Home Medications ?Medication ?Instructions ?Recorded ?Confirmed ?Last Taken ?Type bisacodyl 5 mg tablet,delayed 10 mg PO BEDTIME 01/31/24 01/31/24 01/30/24 21:00 History release clonidine HCl 0.1 mg tablet 0.1 mg PO BID 01/31/24 01/31/24 Unknown History escitalopram oxalate 5 mg tablet 15 mg PO DAILY 01/31/24 01/31/24 Unknown History lorazepam 1 mg tablet (Ativan) 1 mg PO TID 01/31/24 01/31/24 Unknown History polyethylene glycol 3350 17 gram 17 g PO DAILY PRN Constipation 01/31/24 01/31/24 01/29/24 20:00 History oral powder packet quetiapine 150 mg tablet 150 mg PO BEDTIME 01/31/24 01/31/24 Unknown History valsartan 160 mg tablet 160 mg PO DAILY 01/31/24 01/31/24 Unknown History Exam Height,Weight and Vital Signs: Height 6 ft Weight 64.954 kg Last Vital Signs Temp 97.8 F 02/10/24 12:53 Pulse 55 02/10/24 12:53 Resp 18 02/10/24 12:53 BP 129/69 02/10/24 12:53 Pulse Ox 98 02/10/24 12:53 O2 Del Method Room Air 02/10/24 07:58 Pertinent Lab Results Pertinent Lab Results: Laboratory Tests 02/01/24 07:03 Estimat Average Glucose 94 Hemoglobin A1c % 4.9 Magnesium 1.9 Triglycerides 60 Cholesterol 213 H LDL Cholesterol, Calc 120 H HDL Cholesterol 81 Vitamin B12 1141 H Folate 9.1 TSH 3.50 Free T4 1.00 Airway Mallampati Class: II TM Dist: >3cm Neck ROM: Full Loose/Missing/Broken Teeth: No Heart: RRR Lungs: CTA Assessment and Plan Final Anesthetic Review Family History of Problems with Anesthesia: No History of Problems with Anesthesia: No NPO: Yes ASA Class: II Final Preanesthetic Review: Meds/Allgs Chart Reviewed, Consent Obtained/Reviewed and Anes Risks/Benef Reviewed Patient Risk: Low Procedure Risk: Intermediate Anesthetic Plan Anesthetic Plan: GA Disposition: Standard PACU
[2024-02-10] MEDS: Lactated Ringers 1,000 ML 100 ML IVCONT (13:18)
--- NOTE | 2024-02-10 13:30 | MHC.SHP ---
Pre-Procedural Eval Section A - 24 Hr Update-Section A only Date of Service: 02/10/24 The patient is an INPATIENT: Yes Changes since office visit: Yes New Medical Problems, Yes Changes in Medication and Yes Patient answered all questions; No Cold of Flu in the past 2 weeks The patient has been examined within 24 hours of the surgical procedure. The History & Physical has been completed within 30 days and I have reviewed it.: Yes Section B - Complete if H&P > 30 days Chief Complaint: Catatonia Allergies: Allergies Allergy/AdvReac Type Severity Reaction Status Date / Time No Known Allergies Allergy Verified 01/31/24 19:31 Plan I have reviewed the history and physical and performed a pertinent physical examination on my patient. No changes have occurred unless specified. Time Spent With Patient Time: Total time managing care of this patient today ____ minutes.
--- NOTE | 2024-02-10 13:37 | HO.ANESPROP2 ---
Documented by User: Suha Wilson MD 02/21/24 07:36 HPI - Anesthesia Eval Consult details Narrative: 68yo male patient for ECT PMFSH Active Problems Active Problems: All Active Problems (Updated 02/20/24 @ 16:45 by Suha Wilson MD) Preoperative clearance (Acute) Major depressive disorder (Acute) Medical clearance for psychiatric admission (Acute) Catatonia (Acute) Frontotemporal dementia (Acute) Past Medical History Medical History HTN (hypertension) Family History Family history of problems with anesthesia: No Surgical History History of Problems with Anesthesia: No Social History Social History Household Members: Other Household Members Other:: lives w/ his brother according to the pt. Housing: House Do you presently have visiting nurse or other home services: No Patient Tobacco Use Status: Never used Tobacco Smoked in Last 30 Days: No e-Cigarette/Vaping Use: Never Used Patient Interested in Nicotine Replacement: No (Pt said he never smoke.) Patient Given Instructions on How to Stop Smoking: No Second Hand Smoke Exposure: No Use of substances other than those prescribed or required for medical reasons: No Currently Displaying Signs/Symptoms of Drug Intoxication Withdrawal: No Have you been hit, kicked, punched, or otherwise hurt by someone within the past year? If so, by whom?: No Do you feel safe in your current relationship?: No Current Relationship Is there a partner from a previous relationship who is making you feel unsafe now?: No Are you made to feel afraid or neglected: No Advance Directives: No Advance Directives Information Provided: Yes Do you have thoughts of harming others: None Do you have a plan to hurt others: No Plan Recently lost weight without trying: No How much weight loss: Not applicable Eating poorly because of decreased appetite: No Nutrition screen score: 0 Poor oral hygiene: No service: No Sexual orientation: Straight/Heterosexual Meds Allergies Allergy/AdvReac Type Severity Reaction Status Date / Time No Known Allergies Allergy Verified 01/31/24 19:31 Home Medications ?Medication ?Instructions ?Recorded ?Confirmed ?Last Taken ?Type bisacodyl 5 mg tablet,delayed 10 mg PO BEDTIME 01/31/24 01/31/24 01/30/24 21:00 History release clonidine HCl 0.1 mg tablet 0.1 mg PO BID 01/31/24 01/31/24 Unknown History escitalopram oxalate 5 mg tablet 15 mg PO DAILY 01/31/24 01/31/24 Unknown History lorazepam 1 mg tablet (Ativan) 1 mg PO TID 01/31/24 01/31/24 Unknown History polyethylene glycol 3350 17 gram 17 g PO DAILY PRN Constipation 01/31/24 01/31/24 01/29/24 20:00 History oral powder packet quetiapine 150 mg tablet 150 mg PO BEDTIME 01/31/24 01/31/24 Unknown History valsartan 160 mg tablet 160 mg PO DAILY 01/31/24 01/31/24 Unknown History Exam Height,Weight and Vital Signs: Height 6 ft Weight 64.954 kg Last Vital Signs Temp 97 F 02/10/24 13:13 Pulse 51 02/10/24 13:13 Resp 16 02/10/24 13:13 BP 132/77 02/10/24 13:13 Pulse Ox 100 02/10/24 13:13 O2 Del Method Room Air 02/10/24 13:13 Vital Signs Temp Pulse Resp BP Pulse Ox O2 Del Method 02/21/24 07:05 97.3 F 50 16 139/75 97 Room Air 02/21/24 06:24 97.6 F 60 18 136/77 97 02/20/24 19:55 98.0 F 60 18 124/63 98 Room Air 02/20/24 08:16 98.1 F 71 17 123/59 L 97 Room Air Airway Mallampati Class: II TM Dist: >3cm Neck ROM: Full Loose/Missing/Broken Teeth: No (Caps. Intact) Heart: RRR Lungs: CTAB Assessment and Plan Assessment Anesthesia Assessment: Anesthesia Plan Discussed and Chart Reviewed Final Anesthetic Review Family History of Problems with Anesthesia: No History of Problems with Anesthesia: No NPO: Yes ASA Class: III Final Preanesthetic Review: No Changes in Pt Med Stat, Meds/Allgs Chart Reviewed, Consent Obtained/Reviewed and Anes Risks/Benef Reviewed Patient Risk: Intermediate Procedure Risk: Intermediate Assessment/Block/Sedation in SS: Assess/Block/Sedation-SS Anesthetic Plan Anesthetic Plan: GA Disposition: Standard PACU Documented by User: Nga Mccain MD [facility] Active Problems Active Problems: All Active Problems (Updated 02/04/24 @ 13:43 by Camila Mcguire PA-C) Preoperative clearance (Acute) Major depressive disorder (Acute) Medical clearance for psychiatric admission (Acute) Catatonia (Acute) Frontotemporal dementia (Acute) Past Medical History Medical History HTN (hypertension) Family History Family history of problems with anesthesia: No Surgical History History of Problems with Anesthesia: No Social History Social History Household Members: Other Household Members Other:: lives w/ his brother according to the pt. Housing: House Do you presently have visiting nurse or other home services: No Patient Tobacco Use Status: Never used Tobacco Smoked in Last 30 Days: No e-Cigarette/Vaping Use: Never Used Patient Interested in Nicotine Replacement: No (Pt said he never smoke.) Patient Given Instructions on How to Stop Smoking: No Second Hand Smoke Exposure: No Use of substances other than those prescribed or required for medical reasons: No Currently Displaying Signs/Symptoms of Drug Intoxication Withdrawal: No Have you been hit, kicked, punched, or otherwise hurt by someone within the past year? If so, by whom?: No Do you feel safe in your current relationship?: No Current Relationship Is there a partner from a previous relationship who is making you feel unsafe now?: No Are you made to feel afraid or neglected: No Advance Directives: No Advance Directives Information Provided: Yes Do you have thoughts of harming others: None Do you have a plan to hurt others: No Plan Recently lost weight without trying: No How much weight loss: Not applicable Eating poorly because of decreased appetite: No Nutrition screen score: 0 Poor oral hygiene: No service: No Sexual orientation: Straight/Heterosexual Meds Allergies Allergy/AdvReac Type Severity Reaction Status Date / Time No Known Allergies Allergy Verified 10/18/24 19:31 Active Medications: Current Medications Acetaminophen (Acetaminophen 325 Mg Tablet) 650 mg PO Q6H PRN PRN Reason: Headache/Pain Mild Scale (1-3) Last Admin: 02/07/24 20:04 Dose: 650 mg Al Hydroxide/Mg Hydroxide (Magnesium Hydrox/Alum Hydrox 30 Ml Oral.Susp) 30 ml PO Q6H PRN PRN Reason: Heartburn/Nausea Bisacodyl (Bisacodyl 5 Mg Tablet.Dr) 10 mg PO BEDTIME CALLIE Last Admin: 02/09/24 20:29 Dose: 10 mg Clonidine HCl (Clonidine Hcl 0.1 Mg Tablet) 0.1 mg PO BID [facility]; Protocol Last Admin: 02/10/24 10:22 Dose: 0.1 mg Escitalopram Oxalate (Escitalopram Oxalate 5 Mg Tablet) 15 mg PO DAILY [facility] Last Admin: 02/10/24 10:22 Dose: 15 mg Hydroxyzine HCl (Hydroxyzine Hcl 25 Mg Tablet) 25 mg PO Q6H PRN PRN Reason: Anxiety Lactated Ringer's (Lr) 1,000 mls @ 100 mls/hr IVCONT .Q10H CALLIE Last Admin: 02/10/24 13:18 Dose: 100 mls/hr Lorazepam (Lorazepam 0.5 Mg Tablet) 0.5 mg PO TID [facility] Last Admin: 02/10/24 10:12 Dose: Not Given Lorazepam (Lorazepam 0.5 Mg Tablet) 0.5 mg PO DAILY PRN PRN Reason: anxiety Magnesium Hydroxide (Milk Of Magnesia 30 Ml Oral.Susp) 30 ml PO DAILY PRN PRN Reason: Constipation Nicotine Polacrilex (Nicotine Polacrilex 2 Mg Gum) 4 mg BUCCAL Q2H PRN PRN Reason: Nicotine Cravings Polyethylene Glycol (Polyethylene Glycol 3350 17 Gm Powd.Pack) 17 gm PO DAILY PRN PRN Reason: Constipation Quetiapine Fumarate (Quetiapine Fumarate 100 Mg Tablet) 100 mg PO BEDTIME [facility] Last Admin: 02/09/24 20:29 Dose: 100 mg Trazodone HCl (Trazodone Hcl 50 Mg Tablet) 50 mg PO BEDTIME MRX1 PRN PRN Reason: Insomnia Last Admin: 02/02/24 20:58 Dose: 50 mg Valsartan (Valsartan 160 Mg Tablet) 160 mg PO DAILY [facility]; Protocol Last Admin: 02/10/24 10:21 Dose: 160 mg Home Medications ?Medication ?Instructions ?Recorded ?Confirmed ?Last Taken ?Type bisacodyl 5 mg tablet,delayed 10 mg PO BEDTIME 01/31/24 01/31/24 01/30/24 21:00 History release clonidine HCl 0.1 mg tablet 0.1 mg PO BID 01/31/24 01/31/24 Unknown History escitalopram oxalate 5 mg tablet 15 mg PO DAILY 01/31/24 01/31/24 Unknown History lorazepam 1 mg tablet (Ativan) 1 mg PO TID 01/31/24 01/31/24 Unknown History polyethylene glycol 3350 17 gram 17 g PO DAILY PRN Constipation 01/31/24 01/31/24 01/29/24 20:00 History oral powder packet quetiapine 150 mg tablet 150 mg PO BEDTIME 01/31/24 01/31/24 Unknown History valsartan 160 mg tablet 160 mg PO DAILY 01/31/24 01/31/24 Unknown History Exam Height,Weight and Vital Signs: Height 6 ft Weight 64.954 kg Last Vital Signs Temp 97 F 02/10/24 13:13 Pulse 51 02/10/24 13:13 Resp 16 02/10/24 13:13 BP 132/77 02/10/24 13:13 Pulse Ox 100 02/10/24 13:13 O2 Del Method Room Air 02/10/24 13:13 Pertinent Lab Results Pertinent Lab Results: Laboratory Tests 02/01/24 07:03 Estimat Average Glucose 94 Hemoglobin A1c % 4.9 Magnesium 1.9 Triglycerides 60 Cholesterol 213 H LDL Cholesterol, Calc 120 H HDL Cholesterol 81 Vitamin B12 1141 H Folate 9.1 TSH 3.50 Free T4 1.00 Assessment and Plan Final Anesthetic Review Family History of Problems with Anesthesia: No History of Problems with Anesthesia: No
--- NOTE | 2024-02-10 14:18 | HO.ECTPROC ---
ECT Procedure Note Diagnosis/Treatment Date of Service: 02/10/24 Diagnosis: Major Depressive Disorder and Catatonia Previous ECT Date: 02/07/24 Current Treatment Number: 2 Treatment: Series Interval Clinical Notes: pt seems improved after 1 st tx comes to tx willingly no c/o side effects required prop 50 to end sz post op did ok improving mood Time: Total time managing care of this patient today _30___ minutes. ECT Settings Device: THYMATRON DGx Electrode Placement: Bifrontal Program/Pulse Width: 0.25 Energy Percent: 70 Seizure Duration By EEG (in seconds): 90 Medications Administration General Anesthetic: Etomidate (10) Muscle Relaxant: Succinylcholine (80) Ancillary Medications Miscillaneous Medications: Propofol (50) Airway Management Airway Management: Bag Mask Ventilation Treatment Recommendations Energy Percent: 40 Pt Tolerated Procedure w/o Issue: Yes
--- NOTE | 2024-02-10 14:54 | P.PNPSI_ITS ---
Subjective Subjective Date of Service: 02/10/24 Reason For Visit: Catatonia Interim History: met with patient; discussed with team; reviewed chart some improvement over the weekend, talking more fluidly today, seeing patient post ECT and he says he's doing better, no side-effects. 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 He also offers that he's not pacing any more nor repeating words to himself. He finds himself a 6/10 (10 being regular self). He agrees to continue ECT, treatment plan. Mental Status Exam Mental Status Exam Narrative: Pt is alert and oriented; behavior is cooperative, more friendly, not guarded, calm; patient is not in distress; dressed in casual attire with adequate hygiene; mood is described as ok and affect congruent, more naturally ex pressive; eye contact appropriate; Speech is a little slowed and soft, but normal and not pressured; no psychomotor retardation present; thought process is organized and goal directed; Thought content is on treatment; otherwise pertinent to relevant topics and without any delusional content, paranoid ideations or grandiosity; denies any SI/HI. No AVH. Patients insight and judgment impaired but improved. Diagnostics Vital Signs (24Hr): Vital Signs - 24 hr 02/09/24 20:00 02/10/24 07:58 02/10/24 10:17 Temperature 98.6 F Pulse Rate 68 58 50 Respiratory Rate 18 18 Blood Pressure 121/69 139/59 L 138/78 Pulse Oximetry 99 99 Oxygen Delivery Method Room Air Room Air 02/10/24 12:53 02/10/24 13:04 02/10/24 13:13 Temperature 97.8 F 97 F Pulse Rate 55 55 51 Respiratory Rate 18 18 16 Blood Pressure 129/69 129/69 132/77 Pulse Oximetry 98 100 Oxygen Delivery Method Room Air 02/10/24 14:00 02/10/24 14:05 02/10/24 14:10 Temperature 98.3 F Pulse Rate 47 L 56 52 Respiratory Rate 16 16 16 Blood Pressure 136/67 118/75 127/77 Pulse Oximetry 99 98 99 Oxygen Delivery Method Room Air Room Air Room Air 02/10/24 14:15 02/10/24 14:30 Temperature 98.3 F Pulse Rate 52 59 Respiratory Rate 16 16 Blood Pressure 134/79 149/86 H Pulse Oximetry 99 98 Oxygen Delivery Method Room Air Room Air BMI result Body Mass Index 19.4 Imaging Radiology Impressions: ITS Impressions Head CT 02/06/24 10:14 IMPRESSION: No acute fracture, bony calvarium. No acute intracranial hemorrhage. Electronically signed by: Jevon Mcmahon MD 02/06/2024 10:49 AM EDT RP Medications Medications Current Medications Acetaminophen (Acetaminophen 325 Mg Tablet) 650 mg PO Q6H PRN PRN Reason: Headache/Pain Mild Scale (1-3) Last Admin: 02/07/24 20:04 Dose: 650 mg Al Hydroxide/Mg Hydroxide (Magnesium Hydrox/Alum Hydrox 30 Ml Oral.Susp) 30 ml PO Q6H PRN PRN Reason: Heartburn/Nausea Bisacodyl (Bisacodyl 5 Mg Tablet.Dr) 10 mg PO BEDTIME [facility] Last Admin: 02/09/24 20:29 Dose: 10 mg Clonidine HCl (Clonidine Hcl 0.1 Mg Tablet) 0.1 mg PO BID [facility]; Protocol Last Admin: 02/10/24 10:22 Dose: 0.1 mg Escitalopram Oxalate (Escitalopram Oxalate 5 Mg Tablet) 15 mg PO DAILY [facility] Last Admin: 02/10/24 10:22 Dose: 15 mg Hydroxyzine HCl (Hydroxyzine Hcl 25 Mg Tablet) 25 mg PO Q6H PRN PRN Reason: Anxiety Lactated Ringer's (Lr) 1,000 mls @ 100 mls/hr IVCONT .Q10H [facility] Last Admin: 02/10/24 13:18 Dose: 100 mls/hr Lorazepam (Lorazepam 0.5 Mg Tablet) 0.5 mg PO TID [facility] Last Admin: 02/10/24 10:12 Dose: Not Given Lorazepam (Lorazepam 0.5 Mg Tablet) 0.5 mg PO DAILY PRN PRN Reason: anxiety Magnesium Hydroxide (Milk Of Magnesia 30 Ml Oral.Susp) 30 ml PO DAILY PRN PRN Reason: Constipation Nicotine Polacrilex (Nicotine Polacrilex 2 Mg Gum) 4 mg BUCCAL Q2H PRN PRN Reason: Nicotine Cravings Polyethylene Glycol (Polyethylene Glycol 3350 17 Gm Powd.Pack) 17 gm PO DAILY PRN PRN Reason: Constipation Quetiapine Fumarate (Quetiapine Fumarate 100 Mg Tablet) 100 mg PO BEDTIME [facility] Last Admin: 02/09/24 20:29 Dose: 100 mg Trazodone HCl (Trazodone Hcl 50 Mg Tablet) 50 mg PO BEDTIME MRX1 PRN PRN Reason: Insomnia Last Admin: 02/02/24 20:58 Dose: 50 mg Valsartan (Valsartan 160 Mg Tablet) 160 mg PO DAILY [facility]; Protocol Last Admin: 02/10/24 10:21 Dose: 160 mg Allergies Allergies Allergy/AdvReac Type Severity Reaction Status Date / Time No Known Allergies Allergy Verified 01/31/24 19:31 Assessment & Plan Assessment & Plan (1) Catatonia: Status: Acute Code(s): F06.1 - Catatonic disorder due to known physiological condition (2) Major depressive disorder: Status: Acute Code(s): F32.9 - Major depressive disorder, single episode, unspecified (3) Preoperative clearance: Status: Acute Code(s): Z01.818 - Encounter for other preprocedural examination Plan HPI: The patient is a 68-year-old male, from his , living with his brother with a possible past history of frontotemporal dementia who was initially admitted at [facility] last month due to catatonia. Was treated with lorazepam with for improvement but later on taper it off. He was seen by his neurologist on January and recommended to go to the hospital since he relapsed on his catatonic symptoms. He was assessed in the emergency room of [facility], recommended the possibility of readmission with a facility that has ECT as a treatment option. On interview, the patient was pleasant, cooperative reported that he has been feeling more dysphoric and tired, he adamantly denies active suicidal ideation or paranoia. He looks hypoactive with psychomotor retardation. We discussed at length treatment options and he wants his brother to be involved in the decision making. We discussed options and he agreed to continue lorazepam on the meantime. His main concern is constipation, according to the nursing staff he was very somatically preoccupied with his bowel movements and medications. We are continuing Dulcolax that was started standing at [facility]. The patient is a very poor historian so we will try to gather more collateral information from his brother Formulation/clinical reasoning: Patient presents depressed and with significant catatonic symptoms. He is ambivalent about this diagnosis and treatment. Will consider ECT but currently hesitant. Will increase Ativan to 1 mg q.i.d. since patient did improve on 1 mg t.i.d. and declined once Ativan was discontinued (which is fairly diagnostic catatonia) Hospital course: 02/02 He reports his depression 09/22; flat and guarded refused to take Dulcolax last night; remains confused calm and hypoactive. . -meeting with his brother and another relative. He had been chronically depressed and now he is nearly catatonic. Not at his baseline. -Brother says patient does NOT have frontotemporal dementia. -Records from [facility] says neurologist dx with frontotemporal dementia but brother says this was later undiagnosed. 02/03 Patient appears depressed, slow moving, slow talking, thinking seems slowed. Church Administrator discussed symptoms and diagnosis of catatonia. Patient expressed ambivalence about accepting this diagnosis, wondering if it could be due to anxiety; also referenced an MRI that supposedly had benign brain lesion written in the impression and patient wondered if that could be the cause. Church Administrator shared how patient significantly improved per family and per patient when he took Ativan which is fairly diagnostic of catatonia. Discussed ECT and patient ambivalent but said he would consider. Patient reports and has been observed to repeat himself or repeat words over and over; patient observed to be internally preoccupied 02/04 discussed ECT and patient asked numerous, relevant questions. Says he's still deciding about it, but more accepting of condition and need for treatment. REmains internally preoccupied and repeating words to himself under his breath. 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 10/04/23 Brain MRI w/wo contrast concludes the ventricles are normal sized and configuration for pt's age all other imaging non-contributory CTA head/neck (chronic small vessel ischemic disease likely) EEG within normal limites; no...findings suggestive of a neurodegenerative process.. 02/06/24 ect scheduled for am hcp invoked but not affirmed hcp able to give informed consent pt scheduled for am med eval labs ekg reviewed unclear if pt will passively consent questions answered taper seroquel with catatonia lower ativan s/p fall head ct neg 02/06 saw patient before and after ECT. He denies side-effects other than slight headache and felt fine about procedure. He says a little better in that talking more spontaneously, less thought blocking, currently not repeating self...and overall looks for calm. Pt actually smiled and joked a little with procedure writer, comfort tenorio. Discussed ECT and continuing ativan over the weekend. Pt ambivalent about ativan but will consider. -continue ativan 0.5mg TID (would like higher dose but pt did have fall last night, more likely due to Seroquel, at 2am, so it was lowered); will continue to help prevent resurgence of catatonia) (was 1mg q.i.d on the unit, since patient did significantly improve as an outpt (and at other hospital) on Ativan 1 mg t.i.d. though catatonia did not fully resolve; patient decompensated when Ativan was discontinued) 02/09 some improvement over the weekend, talking more fluidly today, seeing patient post ECT and he says he's doing better, no side-effects. 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 He also offers that he's not pacing any more nor repeating words to himself. He finds himself a 6/10 (10 being regular self). He agrees to continue ECT, treatment plan. Plan: CV Invoked healthcare proxy Q 15 minute checks ECT #3 pending 02/12/24 NPO Lowered Ativan to 0.5mg TID (did fall last night at 2 am; though unlikely due to ativan, will lower for safety; pt also on Seroquel) continue lexapro Patient educated on: diagnosis, medication risk/benefits and ECT Informed Consent: understands Reason for continued inpatient stay Substantial Risk for: rapid decompensation and med/psych decompensation Time Spent With Patient Time: Total time managing care of this patient today ____ minutes.
[2024-02-10] MEDS: LORazepam 0.5 MG TABLET PO ×2 (15:35→20:01)
[2024-02-10] MEDS: QUEtiapine Fumarate 100 MG TABLET PO (20:01)
[2024-02-10] MEDS: bisacodyL 5 MG TABLET.DR 10 MG PO (20:01)
[2024-02-10] MEDS: traZODone HCL 50 MG TABLET PO (20:02)
[2024-02-11 08:00] VITALS: BP 116/62; PULSE 66; RESP 18; TEMP 36.8; O2SAT 98
[2024-02-11] MEDS: Valsartan 160 MG TABLET PO (08:05)
[2024-02-11] MEDS: Escitalopram Oxalate 5 MG TABLET 15 MG PO (08:05)
[2024-02-11] MEDS: cloNIDine HCL 0.1 MG TABLET PO ×2 (08:06→21:23)
[2024-02-11] MEDS: LORazepam 0.5 MG TABLET PO ×3 (08:06→21:24)
--- NOTE | 2024-02-11 09:31 | HO.POSTANES ---
Post Anesthesia Evaluation Post Anesthesia Evaluation Date of Service: 02/10/24 Vital Signs: Vital Signs Temp Pulse Resp BP Pulse Ox O2 Del Method 02/11/24 08:00 98.2 F 66 18 116/62 98 Room Air Anesthesia: General Mental Status: Awake Pain Control: Satisfactory Nausea/Vomiting: None Hydration: Adequate Anesthesia-Related Issues: No Anes. Related Issues
--- NOTE | 2024-02-11 09:38 | P.PNPSI_ITS ---
Subjective Subjective Date of Service: 02/11/24 Reason For Visit: Catatonia Interim History: met with patient; discussed with team pt continues to feel better, mood is better, not repeating words. Discussed plans for aftercare and pt says he will not return to brothers but maybe go to an assisted living place. Mental Status Exam Mental Status Exam Narrative: Pt is alert and oriented; behavior is cooperative, more friendly, not guarded, calm; patient is not in distress; dressed in casual attire with adequate hygiene; mood is described as ok and affect congruent, more naturally expressive; eye contact appropriate; Speech is a little slowed and soft, but normal and not pressured; no psychomotor retardation present; thought process is organized and goal directed; Thought content is on treatment; otherwise pertinent to relevant topics and without any delusional content, paranoid ideations or grandiosity; denies any SI/HI. No AVH. Patients insight and judgment impaired but improved. Diagnostics Vital Signs (24Hr): Vital Signs - 24 hr 02/10/24 10:17 02/10/24 12:53 02/10/24 13:04 Temperature 97.8 F Pulse Rate 50 55 55 Respiratory Rate 18 18 Blood Pressure 138/78 129/69 129/69 Pulse Oximetry 98 Oxygen Delivery Method 02/10/24 13:13 02/10/24 14:00 02/10/24 14:05 Temperature 97 F 98.3 F Pulse Rate 51 47 L 56 Respiratory Rate 16 16 16 Blood Pressure 132/77 136/67 118/75 Pulse Oximetry 100 99 98 Oxygen Delivery Method Room Air Room Air Room Air 02/10/24 14:10 02/10/24 14:15 02/10/24 14:30 Temperature 98.3 F Pulse Rate 52 52 59 Respiratory Rate 16 16 16 Blood Pressure 127/77 134/79 149/86 H Pulse Oximetry 99 99 98 Oxygen Delivery Method Room Air Room Air Room Air 02/10/24 15:03 02/10/24 19:58 02/11/24 08:00 Temperature 98.4 F 98.2 F Pulse Rate 58 75 66 Respiratory Rate 18 18 18 Blood Pressure 157/77 H 101/57 L 116/62 Pulse Oximetry 100 98 98 Oxygen Delivery Method Room Air Room Air BMI result Body Mass Index 19.4 Imaging Radiology Impressions: ITS Impressions Head CT 02/06/24 10:14 IMPRESSION: No acute fracture, bony calvarium. No acute intracranial hemorrhage. Electronically signed by: Jevon Mcmahon MD 02/06/2024 10:49 AM EDT Medications Medications Current Medications Acetaminophen (Acetaminophen 325 Mg Tablet) 650 mg PO Q6H PRN PRN Reason: Headache/Pain Mild Scale (1-3) Last Admin: 02/07/24 20:04 Dose: 650 mg Al Hydroxide/Mg Hydroxide (Magnesium Hydrox/Alum Hydrox 30 Ml Oral.Susp) 30 ml PO Q6H PRN PRN Reason: Heartburn/Nausea Bisacodyl (Bisacodyl 5 Mg Tablet.Dr) 10 mg PO BEDTIME [facility] Last Admin: 02/10/24 20:01 Dose: 10 mg Clonidine HCl (Clonidine Hcl 0.1 Mg Tablet) 0.1 mg PO BID [facility]; Protocol Last Admin: 02/11/24 08:06 Dose: 0.1 mg Escitalopram Oxalate (Escitalopram Oxalate 5 Mg Tablet) 15 mg PO DAILY [facility] Last Admin: 02/11/24 08:05 Dose: 15 mg Hydroxyzine HCl (Hydroxyzine Hcl 25 Mg Tablet) 25 mg PO Q6H PRN PRN Reason: Anxiety Lorazepam (Lorazepam 0.5 Mg Tablet) 0.5 mg PO TID [facility] Last Admin: 02/11/24 08:06 Dose: 0.5 mg Lorazepam (Lorazepam 0.5 Mg Tablet) 0.5 mg PO DAILY PRN PRN Reason: anxiety Magnesium Hydroxide (Milk Of Magnesia 30 Ml Oral.Susp) 30 ml PO DAILY PRN PRN Reason: Constipation Nicotine Polacrilex (Nicotine Polacrilex 2 Mg Gum) 4 mg BUCCAL Q2H PRN PRN Reason: Nicotine Cravings Polyethylene Glycol (Polyethylene Glycol 3350 17 Gm Powd.Pack) 17 gm PO DAILY PRN PRN Reason: Constipation Quetiapine Fumarate (Quetiapine Fumarate 100 Mg Tablet) 100 mg PO BEDTIME [facility] Last Admin: 02/10/24 20:01 Dose: 100 mg Trazodone HCl (Trazodone Hcl 50 Mg Tablet) 50 mg PO BEDTIME MRX1 PRN PRN Reason: Insomnia Last Admin: 02/10/24 20:02 Dose: 50 mg Valsartan (Valsartan 160 Mg Tablet) 160 mg PO DAILY [facility]; Protocol Last Admin: 02/11/24 08:05 Dose: 160 mg Allergies Allergies Allergy/AdvReac Type Severity Reaction Status Date / Time No Known Allergies Allergy Verified 01/31/24 19:31 Assessment & Plan Assessment & Plan (1) Catatonia: Status: Acute Code(s): F06.1 - Catatonic disorder due to known physiological condition (2) Major depressive disorder: Status: Acute Code(s): F32.9 - Major depressive disorder, single episode, unspecified (3) Preoperative clearance: Status: Acute Code(s): Z01.818 - Encounter for other preprocedural examination Plan HPI: The patient is a 68-year-old male, from his , living with his brother with a possible past history of frontotemporal dementia who was initially admitted at [facility] last month due to catatonia. Was treated with loraze savannah with for improvement but later on taper it off. He was seen by his neurologist on January and recommended to go to the hospital since he relapsed on his catatonic symptoms. He was assessed in the emergency room of [facility], recommended the possibility of readmission with a facility that has ECT as a treatment option. On interview, the patient was pleasant, cooperative reported that he has been f eeling more dysphoric and tired, he adamantly denies active suicidal ideation or paranoia. He looks hypoactive with psychomotor retardation. We discussed at length treatment options and he wants his brother to be involved in the decision making. We discussed options and he agreed to continue lorazepam on the meantime. His main concern is constipation, according to the nursing staff he was very so matically preoccupied with his bowel movements and medications. We are continuing Dulcolax that was started standing at [facility]. The patient is a very poor historian so we will try to gather more collateral information from his brother Formulation/clinical reasoning: Patient presents depressed and with significant catatonic symptoms. He is ambivalent about this diagnosis and treatment. Will consider ECT but currently hesitant. Will increase Ativan to 1 mg q.i.d. since patient did improve on 1 mg t.i.d. and declined once Ativan was discontinued (which is fairly diagnostic catatonia) Hospital course: 02/02 He reports his depression 10; flat and guarded refused to take Dulcolax last night; remains confused calm and hypoactive. . -meeting with his brother and another relative. He had been chronically depressed and now he is nearly catatonic. Not at his baseline. -Brother says patient does NOT have frontotemporal dementia. -Records from [facility] says neurologist dx with frontotemporal dementia but brother says this was later undiagnosed. 02/03 Patient appears depressed, slow moving, slow talking, thinking seems s lowed. Cream Gatherer discussed symptoms and diagnosis of catatonia. Patient expressed ambivalence about accepting this diagnosis, wondering if it could be due to anxiety; also referenced an MRI that supposedly had benign brain lesion written in the impression and patient wondered if that could be the cause. Cream Gatherer shared how patient significantly improved per family and per patient when he took Ativan which is fairly diagnostic of catatonia. Discussed ECT and patient ambivalent but said he would consider. Patient reports and has been observed to repeat himself or repeat words over and over; patient observed to be internally preoccupied 02/04 discussed ECT and patient asked numerous, relevant questions. Says he's still deciding about it, but more accepting of condition and need for treatment. REmains internally preoccupied and repeating words to himself under his breath. 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 10/04/23 Brain MRI w/wo contrast concludes the ventricles are normal sized and configuration for pt's age all other imaging non-contributory CTA head/neck (chronic small vessel ischemic disease likely) EEG within normal limites; no...findings suggestive of a neurodegenerative process.. 02/06/24 ect scheduled for am hcp invoked but not affirmed hcp able to give informed consent pt scheduled for am med eval labs ekg reviewed unclear if pt will passively consent questions answered taper seroquel with catatonia lower ativan s/p fall head ct neg 02/06 saw patient before and after ECT. He denies side-effects other than sl ight headache and felt fine about procedure. He says a little better in that talking more spontaneously, less thought blocking, currently not repeating self...and overall looks for calm. Pt actually smiled and joked a little with chart writer, comfort tenorio. Discussed ECT and continuing ativan over the weekend. Pt ambivalent about ativan but will consider. -continue ativan 0.5mg TID (would like higher dose but pt did have fall last night, more likely due to Seroquel, at 2am, so it was lowered); will continue to help prevent resurgence of catatonia) (was 1mg q.i.d on the unit, since patient did significantly improve as an outpt (and at other hospital) on Ativan 1 mg t.i.d. though catatonia did not fully resolve; patient decompensated when Ativan was discontinued) 02/09 some improvement over the weekend, talking more fluidly today, seeing patient post ECT and he says he's doing better, no side-effects. 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 He also offers that he's not pacing any more nor repeating words to himself. He finds himself a 10 (10 being regular self). He agrees to continue ECT, treatment plan. 02/10 pt improving. However, he remains at high risk for return of catanonic symptoms and requires continued ECT, likely at least 6 treatments and then maintenance ECT -continue ativan for now Plan: CV Invoked healthcare proxy Q 15 minute checks ECT #3 pending 02/12/24 NPO Lowered Ativan to 0.5mg TID (did fall last night at 2 am; though unlikely due to ativan, will lower for safety; pt also on Seroquel) continue lexapro Patient educated on: diagnosis, medication risk/benefits and ECT Informed Consent: understands Reason for continued inpatient stay Substantial Risk for: rapid decompensation Time Spent With Patient Time: Total time managing care of this patient today ____ minutes.
[2024-02-11 20:00] VITALS: BP 127/67; PULSE 60; RESP 16; TEMP 37; O2SAT 98
[2024-02-11 21:23] VITALS: BP 127/67
[2024-02-11] MEDS: QUEtiapine Fumarate 100 MG TABLET PO (21:24)
[2024-02-12] VITALS (11 sets, daily range): BP systolic 114–145; BP diastolic 64–91; PULSE 55–70; RESP 12–20; TEMP 36.3–37.3; O2SAT 98–100
[2024-02-12] MEDS: Lactated Ringers 1,000 ML 100 ML IVCONT (06:52)
--- NOTE | 2024-02-12 06:56 | HO.ANESPROP2 ---
[facility] Active Problems Active Problems: All Active Problems Preoperative clearance (Acute) Major depressive disorder (Acute) Medical clearance for psychiatric admission (Acute) Catatonia (Acute) Frontotemporal dementia (Acute) Past Medical History Medical History HTN (hypertension) Family History Family history of problems with anesthesia: No Surgical History History of Problems with Anesthesia: No Social History Social History Household Members: Other Household Members Other:: lives w/ his brother according to the pt. Housing: House Do you presently have visiting nurse or other home services: No Patient Tobacco Use Status: Never used Tobacco Smoked in Last 30 Days: No e-Cigarette/Vaping Use: Never Used Patient Interested in Nicotine Replacement: No (Pt said he never smoke.) Patient Given Instructions on How to Stop Smoking: No Second Hand Smoke Exposure: No Use of substances other than those prescribed or required for medical reasons: No Currently Displaying Signs/Symptoms of Drug Intoxication Withdrawal: No Have you been hit, kicked, punched, or otherwise hurt by someone within the past year? If so, by whom?: No Do you feel safe in your current relationship?: No Current Relationship Is there a partner from a previous relationship who is making you feel unsafe now?: No Are you made to feel afraid or neglected: No Advance Directives: No Advance Directives Information Provided: Yes Do you have thoughts of harming others: None Do you have a plan to hurt others: No Plan Recently lost weight without trying: No How much weight loss: Not applicable Eating poorly because of decreased appetite: No Nutrition screen score: 0 Poor oral hygiene: No service: No Sexual orientation: Straight/Heterosexual Meds Allergies Allergy/AdvReac Type Severity Reaction Status Date / Time No Known Allergies Allergy Verified 01/31/24 19:31 Active Medications: Current Medications Acetaminophen (Acetaminophen 325 Mg Tablet) 650 mg PO Q6H PRN PRN Reason: Headache/Pain Mild Scale (1-3) Last Admin: 02/07/24 20:04 Dose: 650 mg Al Hydroxide/Mg Hydroxide (Magnesium Hydrox/Alum Hydrox 30 Ml Oral.Susp) 30 ml PO Q6H PRN PRN Reason: Heartburn/Nausea Bisacodyl (Bisacodyl 5 Mg Tablet.Dr) 10 mg PO BEDTIME CALLIE Last Admin: 02/11/24 21:25 Dose: Not Given Clonidine HCl (Clonidine Hcl 0.1 Mg Tablet) 0.1 mg PO BID ON LICENSE OF [facility]; Protocol Last Admin: 02/11/24 21:23 Dose: 0.1 mg Escitalopram Oxalate (Escitalopram Oxalate 5 Mg Tablet) 15 mg PO DAILY ON LICENSE OF [facility] Last Admin: 02/11/24 08:05 Dose: 15 mg Hydroxyzine HCl (Hydroxyzine Hcl 25 Mg Tablet) 25 mg PO Q6H PRN PRN Reason: Anxiety Lactated Ringer's (Lr) 1,000 mls @ 100 mls/hr IVCONT .Q10H ON LICENSE OF [facility] Last Admin: 02/12/24 06:52 Dose: 100 mls/hr Lorazepam (Lorazepam 0.5 Mg Tablet) 0.5 mg PO TID ON LICENSE OF [facility] Last Admin: 02/11/24 21:24 Dose: 0.5 mg Lorazepam (Lorazepam 0.5 Mg Tablet) 0.5 mg PO DAILY PRN PRN Reason: anxiety Magnesium Hydroxide (Milk Of Magnesia 30 Ml Oral.Susp) 30 ml PO DAILY PRN PRN Reason: Constipation Naloxone HCl (Naloxone Hcl 0.4 Mg/Ml Vial) 0.04 mg IVPUSH Q5M PRN PRN Reason: Excessive sedation or RR < 8 Nicotine Polacrilex (Nicotine Polacrilex 2 Mg Gum) 4 mg BUCCAL Q2H PRN PRN Reason: Nicotine Cravings Polyethylene Glycol (Polyethylene Glycol 3350 17 Gm Powd.Pack) 17 gm PO DAILY PRN PRN Reason: Constipation Quetiapine Fumarate (Quetiapine Fumarate 100 Mg Tablet) 100 mg PO BEDTIME ON LICENSE OF [facility] Last Admin: 02/11/24 21:24 Dose: 100 mg Trazodone HCl (Trazodone Hcl 50 Mg Tablet) 50 mg PO BEDTIME MRX1 PRN PRN Reason: Insomnia Last Admin: 02/10/24 20:02 Dose: 50 mg Valsartan (Valsartan 160 Mg Tablet) 160 mg PO DAILY ON LICENSE OF [facility]; Protocol Last Admin: 02/11/24 08:05 Dose: 160 mg Home Medications ?Medication ?Instructions ?Recorded ?Confirmed ?Last Taken ?Type bisacodyl 5 mg tablet,delayed 10 mg PO BEDTIME 01/31/24 01/31/24 01/30/24 21:00 History release clonidine HCl 0.1 mg tablet 0.1 mg PO BID 10/18/24 10/18/24 Unknown History escitalopram oxalate 5 mg tablet 15 mg PO DAILY 01/31/24 01/31/24 Unknown History lorazepam 1 mg tablet (Ativan) 1 mg PO TID 01/31/24 01/31/24 Unknown History polyethylene glycol 3350 17 gram 17 g PO DAILY PRN Constipation 01/31/24 01/31/24 01/29/24 20:00 History oral powder packet quetiapine 150 mg tablet 150 mg PO BEDTIME 01/31/24 01/31/24 Unknown History valsartan 160 mg tablet 160 mg PO DAILY 01/31/24 01/31/24 Unknown History Exam Height,Weight and Vital Signs: Height 6 ft Weight 64.954 kg Last Vital Signs Temp 97.4 F 02/12/24 06:48 Pulse 56 02/12/24 06:48 Resp 16 02/12/24 06:48 BP 124/70 02/12/24 06:48 Pulse Ox 99 02/12/24 06:48 O2 Del Method Room Air 02/12/24 06:48 Pertinent Lab Results Pertinent Lab Results: Laboratory Tests 02/01/24 07:03 Estimat Average Glucose 94 Hemoglobin A1c % 4.9 Magnesium 1.9 Triglycerides 60 Cholesterol 213 H LDL Cholesterol, Calc 120 H HDL Cholesterol 81 Vitamin B12 1141 H Folate 9.1 TSH 3.50 Free T4 1.00 Airway Mallampati Class: II (caps all over) TM Dist: >3cm Neck ROM: Full Heart: rrr Lungs: cta Assessment and Plan Assessment Anesthesia Assessment: Anesthesia Plan Discussed and Chart Reviewed Final Anesthetic Review Family History of Problems with Anesthesia: No History of Problems with Anesthesia: No NPO: Yes ASA Class: III Final Preanesthetic Review: No Changes in Pt Med Stat, Meds/Allgs Chart Reviewed and Consent Obtained/Reviewed Patient Risk: Low Procedure Risk: Low Anesthetic Plan Anesthetic Plan: GA Disposition: Standard PACU
--- NOTE | 2024-02-12 07:20 | MHC.SHP ---
Pre-Procedural Eval Section A - 24 Hr Update-Section A only Date of Service: 02/12/24 The patient is an INPATIENT: Yes Changes since office visit: No Cold of Flu in the past 2 weeks, No New Medical Problems, No Changes in Medication and No Patient answered all questions The patient has been examined within 24 hours of the surgical procedure. The History & Physical has been completed within 30 days and I have reviewed it.: Yes Section B - Complete if H&P > 30 days Chief Complaint: Catatonia Details of Present Illness: much improved; still some depression Relevant Family History (Specify if Yes): No Present Medications: None Medical History: No relevant PMH Allergies: Allergies Allergy/AdvReac Type Severity Reaction Status Date / Time No Known Allergies Allergy Verified 01/31/24 19:31 Review of Systems Sugical H&P ROS: Negative: Constitution and Yes, Specify: Psychiatric (depression) Plan Diagnosis/Plan: Unchanged I have reviewed the history and physical and performed a pertinent physical examination on my patient. No changes have occurred unless specified. Time Spent With Patient Time: Total time managing care of this patient today ____ minutes.
--- NOTE | 2024-02-12 07:23 | HO.ECTPROC ---
ECT Procedure Note Diagnosis/Treatment Date of Service: 02/14/24 Previous ECT Date: 02/10/24 Current Treatment Number: 3 Treatment: Series Interval Clinical Notes: symptoms improving; mood better, talking spontaneously and not repeating words; significantly improved psychomotor retardation. Time: Total time managing care of this patient today ____ minutes. ECT Settings Device: THYMATRON DGx Electrode Placement: Bifrontal Program/Pulse Width: 0.25 Energy Percent: 50 Seizure Duration By EEG (in seconds): 65 By Motor Observation (in seconds): 7 Medications Administration General Anesthetic: Etomidate (10mg) Muscle Relaxant: Succinylcholine (80mg) Ancillary Medications Miscillaneous Medications: Propofol (50mg) Airway Management Airway Management: Bag Mask Ventilation Treatment Recommendations Electrode Placement: Bifrontal Program/Pulse Width: 0.25 Notes: Consider increasing energy to 70% Pt Tolerated Procedure w/o Issue: Yes
--- NOTE | 2024-02-12 08:07 | P.PNPSI_ITS ---
Subjective Subjective Date of Service: 02/12/24 Reason For Visit: Catatonia Interim History: With patient; discussed with team; performed ECT treatment Met with patient again post ECT and he says he is feeling about the same, a 6 or 7/10, 10 being his regular self. Still feels much improved. Discussed the need for continued ECT which he agrees. Discussed Ativan; patient really wants to come off this but agrees to remain on it for a little longer. Mental Status Exam Mental Status Exam Narrative: Pt is alert and oriented; behavior is cooperative, more friendly, not guarded, calm; patient is not in distress; dressed in casual attire with adequate hygiene; mood is described as ok and affect congruent, more naturally expressive; eye contact appropriate; Speech is a little slowed and soft, but normal and not pressured; no psychomotor retardation present; thought process is organized and goal directed; Thought content is on treatment; otherwise pertinent to relevant topics and without any delusional content, paranoid ideations or grandiosity; denies any SI/HI. No AVH. Patients insight and judgment impaired but improved. Diagnostics Vital Signs (24Hr): Vital Signs - 24 hr 02/11/24 20:00 02/11/24 21:23 02/12/24 06:09 Temperature 98.6 F 98.2 F Pulse Rate 60 65 Respiratory Rate 16 16 Blood Pressure 127/67 127/67 125/76 Pulse Oximetry 98 99 Oxygen Delivery Method Room Air 02/12/24 06:15 02/12/24 06:48 Temperature 98.2 F 97.4 F Pulse Rate 65 56 Respiratory Rate 16 16 Blood Pressure 125/76 124/70 Pulse Oximetry 99 99 Oxygen Delivery Method Room Air Room Air BMI result Body Mass Index 19.4 Imaging Radiology Impressions: ITS Impressions Head CT 02/06/24 10:14 IMPRESSION: No acute fracture, bony calvarium. No acute intracranial hemorrhage. Electronically signed by: Jevon Mcmahon MD 02/06/2024 10:49 AM EDT Medications Medications Current Medications Acetaminophen (Acetaminophen 325 Mg Tablet) 650 mg PO Q6H PRN PRN Reason: Headache/Pain Mild Scale (1-3) Last Admin: 02/07/24 20:04 Dose: 650 mg Al Hydroxide/Mg Hydroxide (Magnesium Hydrox/Alum Hydrox 30 Ml Oral.Susp) 30 ml PO Q6H PRN PRN Reason: Heartburn/Nausea Bisacodyl (Bisacodyl 5 Mg Tablet.Dr) 10 mg PO BEDTIME [facility] Last Admin: 02/11/24 21:25 Dose: Not Given Clonidine HCl (Clonidine Hcl 0.1 Mg Tablet) 0.1 mg PO BID [facility]; Protocol Last Admin: 02/11/24 21:23 Dose: 0.1 mg Escitalopram Oxalate (Escitalopram Oxalate 5 Mg Tablet) 15 mg PO DAILY [facility] Last Admin: 02/11/24 08:05 Dose: 15 mg Hydroxyzine HCl (Hydroxyzine Hcl 25 Mg Tablet) 25 mg PO Q6H PRN PRN Reason: Anxiety Lactated Ringer's (Lr) 1,000 mls @ 100 mls/hr IVCONT .Q10H [facility] Last Admin: 02/12/24 06:52 Dose: 100 mls/hr Lorazepam (Lorazepam 0.5 Mg Tablet) 0.5 mg PO TID [facility] Last Admin: 02/11/24 21:24 Dose: 0.5 mg Lorazepam (Lorazepam 0.5 Mg Tablet) 0.5 mg PO DAILY PRN PRN Reason: anxiety Magnesium Hydroxide (Milk Of Magnesia 30 Ml Oral.Susp) 30 ml PO DAILY PRN PRN Reason: Constipation Naloxone HCl (Naloxone Hcl 0.4 Mg/Ml Vial) 0.04 mg IVPUSH Q5M PRN PRN Reason: Excessive sedation or RR < 8 Nicotine Polacrilex (Nicotine Polacrilex 2 Mg Gum) 4 mg BUCCAL Q2H PRN PRN Reason: Nicotine Cravings Polyethylene Glycol (Polyethylene Glycol 3350 17 Gm Powd.Pack) 17 gm PO DAILY PRN PRN Reason: Constipation Quetiapine Fumarate (Quetiapine Fumarate 100 Mg Tablet) 100 mg PO BEDTIME [facility] Last Admin: 02/11/24 21:24 Dose: 100 mg Trazodone HCl (Trazodone Hcl 50 Mg Tablet) 50 mg PO BEDTIME MRX1 PRN PRN Reason: Insomnia Last Admin: 02/10/24 20:02 Dose: 50 mg Valsartan (Valsartan 160 Mg Tablet) 160 mg PO DAILY [facility]; Protocol Last Admin: 02/11/24 08:05 Dose: 160 mg Allergies Allergies Allergy/AdvReac Type Severity Reaction Status Date / Time No Known Allergies Allergy Verified 10/18/24 19:31 Assessment & Plan Assessment & Plan (1) Catatonia: Status: Acute Code(s): F06.1 - Catatonic disorder due to known physiological condition (2) Major depressive disorder: Status: Acute Code(s): F32.9 - Major depressive disorder, single episode, unspecified (3) Preoperative clearance: Status: Acute Code(s): Z01.818 - Encounter for other preprocedural examination Plan HPI: The patient is a 68-year-old male, from his , living with his brother with a possible past history of frontotemporal dementia who was initially admitted at [facility] last month due to catatonia. Was treated with lorazepam with for improvement but later on taper it off. He was seen by his neurologist on January and recommended to go to the hospital since he relapsed on his catatonic symptoms. He was assessed in the emergency room of [facility], recommended the possibility of readmission with a facility that has ECT as a treatment option. On interview, the patient was pleasant, cooperative reported that he has been feeling more dysphoric and tired, he adamantly denies active suicidal ideation or paranoia. He looks hypoactive with psychomotor retardation. We discussed at length treatment options and he wants his brother to be involved in the decision making. We discussed options and he agreed to continue lorazepam on the meantime. His main concern is constipation, according to the nursing staff he was very somatically preoccupied with his bowel movements and medications. We are continuing Dulcolax that was started standing at [facility]. The patient is a very poor historian so we will try to gather more collateral information from his brother Formulation/clinical reasoning: Patient presents depressed and with significant catatonic symptoms. He is ambivalent about this diagnosis and treatment. Will consider ECT but currently hesitant. Will increase Ativan to 1 mg q.i.d. since patient did improve on 1 mg t.i.d. and declined once Ativan was discontinued (which is fairly diagnostic catatonia) Hospital course: 02/02 He reports his depression 09/22; flat and guarded refused to take Dulcolax last night; remains confused calm and hypoactive. . -meeting with his brother and another relative. He had been chronically depressed and now he is nearly catatonic. Not at his baseline. -Brother says patient does NOT have frontotemporal dementia. -Records from [facility] says neurologist dx with frontotemporal dementia but brother says this was later undiagnosed. 02/03 Patient appears depressed, slow moving, slow talking, thinking seems slowed. [employer] discussed symptoms and diagnosis of catatonia. Patient expressed ambivalence about accepting this diagnosis, wondering if it could be due to anxiety; also referenced an MRI that supposedly had benign brain lesion written in the impression and patient wondered if that could be the cause. [employer] shared how patient significantly improved per family and per patient when he took Ativan which is fairly diagnostic of catatonia. Discussed ECT and patient ambivalent but said he would consider. Patient reports and has been observed to repeat himself or repeat words over and over; patient observed to be internally preoccupied 02/04 discussed ECT and patient asked numerous, relevant questions. Says he's still deciding about it, but more accepting of condition and need for treatment. REmains internally preoccupied and repeating words to himself under his breath. 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 10/04/23 Brain MRI w/wo contrast concludes the ventricles are normal sized and configuration for pt's age all other imaging non-contributory CTA head/neck (chronic small vessel ischemic disease likely) EEG within normal limites; no...findings suggestive of a neurodegenerative process.. 02/06/24 ect scheduled for am hcp invoked but not affirmed hcp able to give informed co nsent pt scheduled for am med eval labs ekg reviewed unclear if pt will passively consent questions answered taper seroquel with catatonia lower ativan s/p fall head ct neg 02/06 saw patient before and after ECT. He denies side-effects other than slight headache and felt fine about procedure. He says a little better in that talking more spontaneously, less thought blocking, currently not repeating self...and overall looks for calm. Pt actually smiled and joked a little with senior technical writer, comfort tenorio. Discussed ECT and continuing ativan over the weekend. Pt ambivalent about ativan but will consider. -continue ativan 0.5mg TID (would like higher dose but pt did have fall last night, more likely due to Seroquel, at 2am, so it was lowered); will continue to help prevent resurgence of catatonia) (was 1mg q.i.d on the unit, since patient did significantly improve as an outpt (and at other hospital) on Ativan 1 mg t.i.d. though catatonia did not fully resolve; patient decompensated when Ativan was discontinued) 02/09 some improvement over the weekend, talking more fluidly today, seeing patient post ECT and he says he's doing better, no side-effects. 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 He also offers that he's not pacing any more nor repeating words to himself. He finds himself a 6/10 (10 being regular self). He agrees to continue ECT, treatment plan. 02/10 pt improving. However, he remains at high risk for return of catanonic symptoms and requires continued ECT, likely at least 6 treatments and then maintenance ECT -continue ativan for now 02/11 continue current treatment plan Plan: CV Invoked healthcare proxy Q 15 minute checks ECT #4 pending 02/14/2024 NPO Lowered Ativan to 0.5mg TID (did fall last night at 2 am; though unlikely due to ativan, will lower for safety; pt also on Seroquel) continue lexapro Patient educated on: diagnosis, medication risk/benefits and ECT Informed Consent: understands Reason for continued inpatient stay Substantial Risk for: rapid decompensation Time Spent With Patient Time: Total time managing care of this patient today ____ minutes.
[2024-02-12] MEDS: Valsartan 160 MG TABLET PO (09:00)
[2024-02-12] MEDS: Escitalopram Oxalate 5 MG TABLET 15 MG PO (09:01)
[2024-02-12] MEDS: LORazepam 0.5 MG TABLET PO ×3 (09:01→20:56)
[2024-02-12] MEDS: cloNIDine HCL 0.1 MG TABLET PO ×2 (09:02→20:55)
[2024-02-13 07:00] VITALS: BMI 21.0
[2024-02-13 08:43] VITALS: BP 123/58; PULSE 70; RESP 18; TEMP 36.7; O2SAT 99
[2024-02-13] MEDS: Valsartan 160 MG TABLET PO (08:47)
[2024-02-13] MEDS: Escitalopram Oxalate 5 MG TABLET 15 MG PO (08:47)
[2024-02-13] MEDS: cloNIDine HCL 0.1 MG TABLET PO ×2 (08:47→21:30)
[2024-02-13] MEDS: LORazepam 0.5 MG TABLET PO ×3 (08:47→21:30)
[2024-02-13] MEDS: polyethylene glycoL 3350 17 GM POWD.PACK PO (08:52)
--- NOTE | 2024-02-13 13:44 | P.PNPSI_ITS ---
Subjective Subjective Date of Service: 02/13/24 Reason For Visit: Catatonia Interim History: Met with patient; discussed with team no change in presentation; asks again to taper off Ativan and narrative writer agreed; discussed need for several more ECT treatments as he remains vulnerable to slidi ng back into catatonia. Patient agrees with this however he is unsure about his ability to get maintenance ECT which will also be essential. Discussed case with oncology social work Mental Status Exam Mental Status Exam Narrative: Pt is alert and oriented; behavior is cooperative, more friendly, not guarded, calm; patient is not in distress; dressed in casual attire with adequate hygiene; mood is described as ok and affect congruent, more naturally expressive; eye contact appropriate; Speech is a little slowed and soft, but normal and not pressured; no psychomotor retardation present; thought process is organized and goal directed; Thought content is on treatment; otherwise pertine nt to relevant topics and without any delusional content, paranoid ideations or grandiosity; denies any SI/HI. No AVH. Patients insight and judgment impaired but improved. Diagnostics Vital Signs (24Hr): Vital Signs - 24 hr 02/12/24 20:00 02/13/24 08:43 Temperature 97.7 F 98.1 F Pulse Rate 70 70 Respiratory Rate 17 18 Blood Pressure 130/69 123/58 L Pulse Oximetry 99 99 Oxygen Delivery Method Room Air Room Air BMI result Body Mass Index 19.4 Imaging Radiology Impressions: ITS Impressions Head CT 02/06/24 10:14 IMPRESSION: No acute fracture, bony calvarium. No acute intracranial hemorrhage. Electronically signed by: Jevon Mcmahon MD 02/06/2024 10:49 AM EDT Medications Medications Current Medications Acetaminophen (Acetaminophen 325 Mg Tablet) 650 mg PO Q6H PRN PRN Reason: Headache/Pain Mild Scale (1-3) Last Admin: 02/07/24 20:04 Dose: 650 mg Al Hydroxide/Mg Hydroxide (Magnesium Hydrox/Alum Hydrox 30 Ml Oral.Susp) 30 ml PO Q6H PRN PRN Reason: Heartburn/Nausea Bisacodyl (Bisacodyl 5 Mg Tablet.Dr) 10 mg PO BEDTIME CALLIE Last Admin: 02/12/24 20:55 Dose: Not Given Clonidine HCl (Clonidine Hcl 0.1 Mg Tablet) 0.1 mg PO BID CALLIE; Protocol Last Admin: 02/13/24 08:47 Dose: 0.1 mg Escitalopram Oxalate (Escitalopram Oxalate 5 Mg Tablet) 15 mg PO DAILY [facility] Last Admin: 02/13/24 08:47 Dose: 15 mg Hydroxyzine HCl (Hydroxyzine Hcl 25 Mg Tablet) 25 mg PO Q6H PRN PRN Reason: Anxiety Lorazepam (Lorazepam 0.5 Mg Tablet) 0.5 mg PO TID [facility] Last Admin: 02/13/24 08:47 Dose: 0.5 mg Lorazepam (Lorazepam 0.5 Mg Tablet) 0.5 mg PO DAILY PRN PRN Reason: anxiety Magnesium Hydroxide (Milk Of Magnesia 30 Ml Oral.Susp) 30 ml PO DAILY PRN PRN Reason: Constipation Naloxone HCl (Naloxone Hcl 0.4 Mg/Ml Vial) 0.04 mg IVPUSH Q5M PRN PRN Reason: Excessive sedation or RR < 8 Nicotine Polacrilex (Nicotine Polacrilex 2 Mg Gum) 4 mg BUCCAL Q2H PRN PRN Reason: Nicotine Cravings Polyethylene Glycol (Polyethylene Glycol 3350 17 Gm Powd.Pack) 17 gm PO DAILY PRN PRN Reason: Constipation Last Admin: 02/13/24 08:52 Dose: 17 gm Quetiapine Fumarate (Quetiapine Fumarate 100 Mg Tablet) 100 mg PO BEDTIME [facility] Last Admin: 02/13/24 06:38 Dose: Not Given Trazodone HCl (Trazodone Hcl 50 Mg Tablet) 50 mg PO BEDTIME MRX1 PRN PRN Reason: Insomnia Last Admin: 02/10/24 20:02 Dose: 50 mg Valsartan (Valsartan 160 Mg Tablet) 160 mg PO DAILY [facility]; Protocol Last Admin: 02/13/24 08:47 Dose: 160 mg Allergies Allergies Allergy/AdvReac Type Severity Reaction Status Date / Time No Known Allergies Allergy Verified 01/31/24 19:31 Assessment & Plan Assessment & Plan (1) Catatonia: Status: Acute Code(s): F06.1 - Catatonic disorder due to known physiological condition (2) Major depressive disorder: Status: Acute Code(s): F32.9 - Major depressive disorder, single episode, unspecified (3) Preoperative clearance: Status: Acute Code(s): Z01.818 - Encounter for other preprocedural examination Plan HPI: The patient is a 68-year-old male, from his , living with his brother with a possible past history of frontotemporal dementia who was initially admitted at [facility] last month due to catatonia. Was treated with lorazepam with for improvement but later on taper it off. He was seen by his neurologist on January and recommended to go to the hospital since he relapsed on his catatonic symptoms. He was assessed in the emergency room of [facility], recommended the possibility of readmission with a facility that has ECT as a treatment option. On interview, the patient was pleasant, cooperative reported that he has been feeling more dysphoric and tired, he adamantly denies active suicidal ideation or paranoia. He looks hypoactive with psychomotor retardation. We discussed at length treatment options and he wants his brother to be involved in the decision making. We discussed options and he agreed to continue lorazepam on the meantime. His main concern is constipation, according to the nursing staff he was very somatically preoccupied with his bowel movements and medications. We are continuing Dulcolax that was started standing at [facility]. The patient is a very poor historian so we will try to gather more collateral information from his brother Formulation/clinical reasoning: Patient presents depressed and with significant catatonic symptoms. He is ambivalent about this diagnosis and treatment. Will consider ECT but currently hesitant. Will increase Ativan to 1 mg q.i.d. since patient did improve on 1 mg t.i.d. and declined once Ativan was discontinued (which is fairly diagnostic catatonia) Hospital course: 02/02 He reports his depression 09/22; flat and guarded refused to take Dulcolax last night; remains confused calm and hypoactive. . -meeting with his brother and another relative. He had been chronically depressed and now he is nearly catatonic. Not at his baseline. -Brother says patient does NOT have frontotemporal dementia. -Records from [facility] says neurologist dx with frontotemporal dementia but brother says this was later undiagnosed. 02/03 Patient appears depressed, slow moving, slow talking, thinking seems slowed. Special Education Case Manager discussed symptoms and diagnosis of catatonia. Patient expressed ambivalence about accepting this diagnosis, wondering if it could be due to anxiety; also referenced an MRI that supposedly had benign brain lesion written in the impression and patient wondered if that could be the cause. Special Education Case Manager shared how patient significantly improved per family and per patient when he took Ativan which is fairly diagnostic of catatonia. Discussed ECT and patient ambivalent but said he would consider. Patient reports and has been observed to repeat himself or repeat words over and over; patient observed to be internally preoccupied 02/04 discussed ECT and patient asked numerous, relevant questions. Says he's still deciding about it, but more accepting of condition and need for treatment. REmains internally preoccupied and repeating words to himself under his breath. 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 10/04/23 Brain MRI w/wo contrast concludes the ventricles are normal sized and configuration for pt's age all other imaging non-contributory CTA head/neck (chronic small vessel ischemic disease likely) EEG within normal limites; no...findings suggestive of a neurodegenerative process.. 02/06/24 ect scheduled for am hcp invoked but not affirmed hcp able to give informed consent pt scheduled for am med eval labs ekg reviewed unclear if pt will passively consent questions answered taper seroquel with catatonia lower ativan s/p fall head ct neg 02/06 saw patient before and after ECT. He denies side-effects other than slight headache and felt fine about procedure. He says a little better in that talking more spontaneously, less thought blocking, currently not repeating self...and overall looks for calm. Pt actually smiled and joked a little with narrative writercomfort. Discussed ECT and continuing ativan over the weekend. Pt ambivalent about ativan but will consider. -continue ativan 0.5mg TID (would like higher dose but pt did have fall last night, more likely due to Seroquel, at 2am, so it was lowered); will continue to help prevent resurgence of catatonia) (was 1mg q.i.d on the unit, since patient did significantly improve as an outpt (and at other hospital) on Ativan 1 mg t.i.d. though catatonia did not fully resolve; patient decompensated when Ativan was discontinued) 02/09 some improvement over the weekend, talking more fluidly today, seeing patient post ECT and he says he's doing better, no side-effects. 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 He also offers that he's not pacing any more nor repeating words to himself. He finds himself a / (10 being regular self). He agrees to continue ECT, treatment plan. 02/10 pt improving. However, he remains at high risk for return of catanonic symptoms and requires continued ECT, likely at least 6 treatments and then maintenance ECT -continue ativan for now 02/11 continue current treatment plan 02/12 will taper off Ativan at patient's request; starting at a very low dose and is minimally contributing towards patient's stability Plan: CV Invoked healthcare proxy Q 15 minute checks ECT #4 pending 02/14/2024 NPO Taper and discontinue Ativan currently 0.5mg TID (did fall last night at 2 am; though unlikely due to ativan, will lower for safety; pt also on Seroquel) continue lexapro Patient educated on: diagnosis, medication risk/benefits and ECT Informed Consent: understands Reason for continued inpatient stay Substantial Risk for: rapid decompensation Time Spent With Patient Time: Total time managing care of this patient today ____ minutes.
[2024-02-13 21:28] VITALS: BP 126/61; PULSE 69; RESP 17; TEMP 36.6; O2SAT 99
[2024-02-13 21:30] VITALS: BP 126/61
[2024-02-13] MEDS: QUEtiapine Fumarate 100 MG TABLET PO (21:30)
[2024-02-14] VITALS (11 sets, daily range): BP systolic 103–142; BP diastolic 59–78; PULSE 52–81; RESP 15–17; TEMP 36.1–37.1; O2SAT 96–99
--- NOTE | 2024-02-14 11:09 | HO.PSYCHPN ---
Subjective Subjective Date of Service: 02/14/24 Reason For Visit: Catatonia Interim History: Met with patient; discussed with team Tolerated ECT; says though he is doing better, he still not back to regular and stabilizing; agrees with treatment plan; glad to be tapering down from Ativan Mental Status Exam Mental Status Exam Narrative: Pt is alert and oriented; behavior is cooperative, more friendly, not guarded, calm; patient is not in distress; dressed in casual attire with adequate hygiene; mood is described as ok and affect congruent, more naturally expressive; eye contact appropriate; Speech is a little slowed and soft, but normal and not pressured; no psychomotor retardation present; thought process is organized and goal directed; Thought content is on treatment; otherwise pertinent to relevant topics and without any delusional content, paranoid ideations or grandiosity; denies any SI/HI. No AVH. Patients insight and judgment impaired but improved. Diagnostics Vital Signs (24Hr): Vital Signs - 24 hr 02/13/24 21:28 02/13/24 21:30 02/14/24 06:07 Temperature 97.8 F 98.4 F Pulse Rate 69 57 Respiratory Rate 17 16 Blood Pressure 126/61 126/61 117/65 Pulse Oximetry 99 Oxygen Delivery Method Room Air BMI result Body Mass Index 21.0 Imaging Radiology Impressions: ITS Impressions Head CT 02/06/24 10:14 IMPRESSION: No acute fracture, bony calvarium. No acute intracranial hemorrhage. Electronically signed by: Jevon Mcmahon MD 02/06/2024 10:49 AM EDT Medications Medications Current Medications Acetaminophen (Acetaminophen 325 Mg Tablet) 650 mg PO Q6H PRN PRN Reason: Headache/Pain Mild Scale (1-3) Last Admin: 02/07/24 20:04 Dose: 650 mg Al Hydroxide/Mg Hydroxide (Magnesium Hydrox/Alum Hydrox 30 Ml Oral.Susp) 30 ml PO Q6H PRN PRN Reason: Heartburn/Nausea Bisacodyl (Bisacodyl 5 Mg Tablet.Dr) 10 mg PO BEDTIME CALLIE Last Admin: 02/13/24 21:32 Dose: Not Given Clonidine HCl (Clonidine Hcl 0.1 Mg Tablet) 0.1 mg PO BID CALLIE; Protocol Last Admin: 02/13/24 21:30 Dose: 0.1 mg Escitalopram Oxalate (Escitalopram Oxalate 5 Mg Tablet) 15 mg PO DAILY CALLIE Last Admin: 02/13/24 08:47 Dose: 15 mg Hydroxyzine HCl (Hydroxyzine Hcl 25 Mg Tablet) 25 mg PO Q6H PRN PRN Reason: Anxiety Lorazepam (Lorazepam 0.5 Mg Tablet) 0.5 mg PO TID CALLIE Last Admin: 02/13/24 21:30 Dose: 0.5 mg Lorazepam (Lorazepam 0.5 Mg Tablet) 0.5 mg PO DAILY PRN PRN Reason: anxiety Magnesium Hydroxide (Milk Of Magnesia 30 Ml Oral.Susp) 30 ml PO DAILY PRN PRN Reason: Constipation Naloxone HCl (Naloxone Hcl 0.4 Mg/Ml Vial) 0.04 mg IVPUSH Q5M PRN PRN Reason: Excessive sedation or RR < 8 Nicotine Polacrilex (Nicotine Polacrilex 2 Mg Gum) 4 mg BUCCAL Q2H PRN PRN Reason: Nicotine Cravings Polyethylene Glycol (Polyethylene Glycol 3350 17 Gm Powd.Pack) 17 gm PO DAILY PRN PRN Reason: Constipation Last Admin: 02/13/24 08:52 Dose: 17 gm Quetiapine Fumarate (Quetiapine Fumarate 100 Mg Tablet) 100 mg PO BEDTIME CALLIE Last Admin: 02/13/24 21:30 Dose: 100 mg Trazodone HCl (Trazodone Hcl 50 Mg Tablet) 50 mg PO BEDTIME MRX1 PRN PRN Reason: Insomnia Last Admin: 02/10/24 20:02 Dose: 50 mg Valsartan (Valsartan 160 Mg Tablet) 160 mg PO DAILY [facility]; Protocol Last Admin: 02/13/24 08:47 Dose: 160 mg Allergies Allergies Allergy/AdvReac Type Severity Reaction Status Date / Time No Known Allergies Allergy Verified 01/31/24 19:31 Assessment & Plan Assessment & Plan (1) Catatonia: Status: Acute Code(s): F06.1 - Catatonic disorder due to known physiological condition (2) Major depressive disorder: Status: Acute Code(s): F32.9 - Major depressive disorder, single episode, unspecified (3) Preoperative clearance: Status: Acute Code(s): Z01.818 - Encounter for other preprocedural examination Plan HPI: The patient is a 68-year-old male, from his , living with his brother with a possible past history of frontotemporal dementia who was initially admitted at [facility] last month due to catatonia. Was treated with lorazepam with for improvement but later on taper it off. He was seen by his neurologist on January and recommended to go to the hospital since he relapsed on his catatonic symptoms. He was assessed in the emergency room of [facility], recommended the possibility of readmission with a facility that has ECT as a treatment option. On interview, the patient was pleasant, cooperative reported that he has been feeling more dysphoric and tired, he adamantly denies active suicidal ideation or paranoia. He looks hypoactive with psychomotor retardation. We discussed at length treatment options and he wants his brother to be involved in the decision making. We discussed options and he agreed to continue lorazepam on the meantime. His main concern is constipation, according to the nursing staff he was very somatically preoccupied with his bowel movements and medications. We are continuing Dulcolax that was started standing at [facility]. The patient is a very poor historian so we will try to gather more collateral information from his brother Formulation/clinical reasoning: Patient presents depressed and with significant catatonic symptoms. He is ambivalent about this diagnosis and treatment. Will consider ECT but currently hesitant. Will increase Ativan to 1 mg q.i.d. since patient did improve on 1 mg t.i.d. and declined once Ativan was discontinued (which is fairly diagnostic catatonia) Hospital course: 02/02 He reports his depression 6/10; flat and guarded refused to take Dulcolax last night; remains confused calm and hypoactive. . -meeting with his brother and another relative. He had been chronically depressed and now he is nearly catatonic. Not at his baseline. -Brother says patient does NOT have frontotemporal dementia. -Records from [facility] says neurologist dx with frontotemporal dementia but brother says this was later undiagnosed. 02/03 Patient appears depressed, slow moving, slow talking, thinking seems slowed. Palletizer Operator discussed symptoms and diagnosis of catatonia. Patient expressed ambivalence about accepting this diagnosis, wondering if it could be due to anxiety; also referenced an MRI that supposedly had benign brain lesion written in the impression and patient wondered if that could be the cause. Palletizer Operator shared how patient significantly improved per family and per patient when he took Ativan which is fairly diagnostic of catatonia. Discussed ECT and patient ambivalent but said he would consider. Patient reports and has been observed to repeat himself or repeat words over and over; patient observed to be internally preoccupied 02/04 discussed ECT and patient asked numerous, relevant questions. Says he's still deciding about it, but more accepting of condition and need for treatment. REmains internally preoccupied and repeating words to himself under his breath. 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 10/04/23 Brain MRI w/wo contrast concludes the ventricles are normal sized and configuration for pt's age all other imaging non-contributory CTA head/neck (chronic small vessel ischemic disease likely) EEG within normal limites; no...findings suggestive of a neurodegenerative process.. 02/06/24 ect scheduled for am hcp invoked but not affirmed hcp able to give informed consent pt scheduled for am med eval labs ekg reviewed unclear if pt will passively consent questions answered taper seroquel with catatonia lower ativan s/p fall head ct neg 02/06 saw patient before and after ECT. He denies side-effects other than slight headache and felt fine about procedure. He says a little better in that talking more spontaneously, less thought blocking, currently not repeating self...and overall looks for calm. Pt actually smiled and joked a little with automobile and property underwritercomfort. Discussed ECT and continuing ativan over the weekend. Pt ambivalent about ativan but will consider. -continue ativan 0.5mg TID (would like higher dose but pt did have fall last night, more likely due to Seroquel, at 2am, so it was lowered); will continue to help prevent resurgence of catatonia) (was 1mg q.i.d on the unit, since patient did significantly improve as an outpt (and at other hospital) on Ativan 1 mg t.i.d. though catatonia did not fully resolve; patient decompensated when Ativan was discontinued) 02/09 some improvement over the weekend, talking more fluidly today, seeing patient post ECT and he says he's doing better, no side-effects. He says he's feeling mechanical lead...not as heavy. He also offers that he's not pacing any more nor repeating words to himself. He finds himself a / (10 being regular self). He agrees to continue ECT, treatment plan. 02/10 pt improving. However, he remains at high risk for return of catanonic symptoms and requires continued ECT, likely at least 6 treatments and then maintenance ECT -continue ativan for now 02/11 continue current treatment plan 02/12 will taper off Ativan at patient's request; starting at a very low dose and is minimally contributing towards patient's stability 02/13 continue treatment plan; Ativan taper -patient remains at high risk for decompensation and sliding back into catatonia. Patient requires continued ECT to mitigate this risk. Plan: CV Invoked healthcare proxy Q 15 minute checks ECT #5 pending 02/17/2024 NPO Lowered Ativan to 0.5 mg b.i.d.; will taper and DC continue lexapro Patient educated on: diagnosis, medication risk/benefits and ECT Informed Consent: understands Reason for continued inpatient stay Substantial Risk for: rapid decompensation Time Spent With Patient Time: Total time managing care of this patient today ____ minutes.
--- NOTE | 2024-02-14 12:25 | P.CONAN_ITS ---
HPI - Anesthesia Eval Consult details Narrative: ect PMFSH Active Problems Active Problems: All Active Problems Preoperative clearance (Acute) Major depressive disorder (Acute) Medical clearance for psychiatric admission (Acute) Catatonia (Acute) Frontotemporal dementia (Acute) Past Medical History Medical History HTN (hypertension) Family History Family history of problems with anesthesia: No Surgical History History of Problems with Anesthesia: No Social History Social History Household Members: Other Household Members Other:: lives w/ his brother according to the pt. Housing: House Do you presently have visiting nurse or other home services: No Patient Tobacco Use Status: Never used Tobacco Smoked in Last 30 Days: No e-Cigarette/Vaping Use: Never Used Patient Interested in Nicotine Replacement: No (Pt said he never smoke.) Patient Given Instructions on How to Stop Smoking: No Second Hand Smoke Exposure: No Use of substances other than those prescribed or required for medical reasons: No Currently Displaying Signs/Symptoms of Drug Intoxication Withdrawal: No Have you been hit, kicked, punched, or otherwise hurt by someone within the past year? If so, by whom?: No Do you feel safe in your current relationship?: No Current Relationship Is there a partner from a previous relationship who is making you feel unsafe now?: No Are you made to feel afraid or neglected: No Advance Directives: No Advance Directives Information Provided: Yes Do you have thoughts of harming others: None Do you have a plan to hurt others: No Plan Recently lost weight without trying: No How much weight loss: Not applicable Eating poorly because of decreased appetite: No Nutrition screen score: 0 Poor oral hygiene: No service: No Sexual orientation: Straight/Heterosexual Meds Allergies Allergy/AdvReac Type Severity Reaction Status Date / Time No Known Allergies Allergy Verified 01/31/24 19:31 Active Medications: Current Medications Acetaminophen (Acetaminophen 325 Mg Tablet) 650 mg PO Q6H PRN PRN Reason: Headache/Pain Mild Scale (1-3) Last Admin: 02/07/24 20:04 Dose: 650 mg Al Hydroxide/Mg Hydroxide (Magnesium Hydrox/Alum Hydrox 30 Ml Oral.Susp) 30 ml PO Q6H PRN PRN Reason: Heartburn/Nausea Bisacodyl (Bisacodyl 5 Mg Tablet.) 10 mg PO BEDTIME [facility] Last Admin: 02/13/24 21:32 Dose: Not Given Clonidine HCl (Clonidine Hcl 0.1 Mg Tablet) 0.1 mg PO BID [facility]; Protocol Last Admin: 02/13/24 21:30 Dose: 0.1 mg Escitalopram Oxalate (Escitalopram Oxalate 5 Mg Tablet) 15 mg PO DAILY [facility] Last Admin: 02/13/24 08:47 Dose: 15 mg Hydroxyzine HCl (Hydroxyzine Hcl 25 Mg Tablet) 25 mg PO Q6H PRN PRN Reason: Anxiety Lorazepam (Lorazepam 0.5 Mg Tablet) 0.5 mg PO DAILY PRN PRN Reason: anxiety Lorazepam (Lorazepam 0.5 Mg Tablet) 0.5 mg PO BID [facility] Magnesium Hydroxide (Milk Of Magnesia 30 Ml Oral.Susp) 30 ml PO DAILY PRN PRN Reason: Constipation Naloxone HCl (Naloxone Hcl 0.4 Mg/Ml Vial) 0.04 mg IVPUSH Q5M PRN PRN Reason: Excessive sedation or RR < 8 Nicotine Polacrilex (Nicotine Polacrilex 2 Mg Gum) 4 mg BUCCAL Q2H PRN PRN Reason: Nicotine Cravings Polyethylene Glycol (Polyethylene Glycol 3350 17 Gm Powd.Pack) 17 gm PO DAILY PRN PRN Reason: Constipation Last Admin: 02/13/24 08:52 Dose: 17 gm Quetiapine Fumarate (Quetiapine Fumarate 100 Mg Tablet) 100 mg PO BEDTIME [facility] Last Admin: 02/13/24 21:30 Dose: 100 mg Trazodone HCl (Trazodone Hcl 50 Mg Tablet) 50 mg PO BEDTIME MRX1 PRN PRN Reason: Insomnia Last Admin: 02/10/24 20:02 Dose: 50 mg Valsartan (Valsartan 160 Mg Tablet) 160 mg PO DAILY [facility]; Protocol Last Admin: 02/13/24 08:47 Dose: 160 mg Home Medications ?Medication ?Instructions ?Recorded ?Confirmed ?Last Taken ?Type bisacodyl 5 mg tablet,delayed 10 mg PO BEDTIME 01/31/24 01/31/24 01/30/24 21:00 History release clonidine HCl 0.1 mg tablet 0.1 mg PO BID 01/31/24 01/31/24 Unknown History escitalopram oxalate 5 mg tablet 15 mg PO DAILY 01/31/24 01/31/24 Unknown Histo ry lorazepam 1 mg tablet (Ativan) 1 mg PO TID 01/31/24 01/31/24 Unknown History polyethylene glycol 3350 17 gram 17 g PO DAILY PRN Constipation 01/31/24 01/31/24 01/29/24 20:00 History oral powder packet quetiapine 150 mg tablet 150 mg PO BEDTIME 01/31/24 01/31/24 Unknown History valsartan 160 mg tablet 160 mg PO DAILY 01/31/24 01/31/24 Unknown History Exam Height,Weight and Vital Signs: Height 6 ft Weight 70.125 kg Last Vital Signs Temp 97.3 F 02/14/24 12:08 Pulse 52 02/14/24 12:08 Resp 16 02/14/24 12:08 BP 127/66 02/14/24 12:08 Pulse Ox 99 02/14/24 12:08 O2 Del Method Room Air 02/14/24 12:08 O2 Flow Rate 2 02/12/24 08:20 Pertinent Lab Results Pertinent Lab Results: Laboratory Tests 02/01/24 07:03 Estimat Average Glucose 94 Hemoglobin A1c % 4.9 Magnesium 1.9 Triglycerides 60 Cholesterol 213 H LDL Cholesterol, Calc 120 H HDL Cholesterol 81 Vitamin B12 1141 H Folate 9.1 TSH 3.50 Free T4 1.00 Airway Mallampati Class: II TM Dist: >3cm Neck ROM: Limited Heart: rrr Lungs: cta Assessment and Plan Assessment Anesthesia Assessment: Anesthesia Plan Discussed Final Anesthetic Review Family History of Problems with Anesthesia: No History of Problems with Anesthesia: No NPO: Yes ASA Class: III Final Preanesthetic Review: No Changes in Pt Med Stat, Meds/Allgs Chart Reviewed, Consent Obtained/Reviewed and Anes Risks/Benef Reviewed Patient Risk: Intermediate Procedure Risk: Low Anesthetic Plan Anesthetic Plan: GA Disposition: Standard PACU
--- NOTE | 2024-02-14 13:39 | MHC.SHP ---
Pre-Procedural Eval Section A - 24 Hr Update-Section A only Date of Service: 02/14/24 The patient is an INPATIENT: Yes Changes since office visit: Yes Changes in Medication and Yes Patient answered all questions; No Cold of Flu in the past 2 weeks and No New Medical Problems The patient has been examined within 24 hours of the surgical procedure. The History & Physical has been completed within 30 days and I have reviewed it.: Yes Section B - Complete if H&P > 30 days Chief Complaint: Catatonia Allergies: Allergies Allergy/AdvReac Type Severity Reaction Status Date / Time No Known Allergies Allergy Verified 01/31/24 19:31 Plan I have reviewed the history and physical and performed a pertinent physical examination on my patient. No changes have occurred unless specified. Time Spent With Patient Time: Total time managing care of this patient today ____ minutes.
--- NOTE | 2024-02-14 13:42 | HO.ECTPROC ---
ECT Procedure Note Diagnosis/Treatment Date of Service: 02/14/24 Diagnosis: Major Depressive Disorder and Catatonia Previous ECT Date: 02/12/24 Current Treatment Number: 4 Treatment: Series Interval Clinical Notes: symptoms improving; mood better, talking spontaneously and not repeating words; significantly improved psychomotor retardation. Patient has a much panchal range of affect able to tell me clear details regarding life events Time: Total time managing care of this patient today ____ minutes. ECT Settings Device: THYMATRON DGx Electrode Placement: Bifrontal Program/Pulse Width: 0.25 Energy Percent: 60 Seizure Duration By EEG (in seconds): 79 Medications Administration General Anesthetic: Etomidate (10mg) Muscle Relaxant: Succinylcholine (80mg) Ancillary Medications Miscillaneous Medications: Propofol (50mg) Airway Management Airway Management: Bag Mask Ventilation Treatment Recommendations Electrode Placement: Bifrontal Program/Pulse Width: 0.25 Notes: should be able to dec energy Pt Tolerated Procedure w/o Issue: Yes
[2024-02-14] MEDS: Escitalopram Oxalate 5 MG TABLET 15 MG PO (15:14)
[2024-02-14] MEDS: Valsartan 160 MG TABLET PO (15:14)
[2024-02-14] MEDS: polyethylene glycoL 3350 17 GM POWD.PACK PO (15:17)
[2024-02-14] MEDS: LORazepam 0.5 MG TABLET PO (19:59)
[2024-02-14] MEDS: cloNIDine HCL 0.1 MG TABLET PO (20:00)
[2024-02-14] MEDS: QUEtiapine Fumarate 100 MG TABLET PO (20:00)
[2024-02-15 08:00] VITALS: BP 101/55; PULSE 73; RESP 16; TEMP 38.1; O2SAT 99
[2024-02-15] MEDS: Acetaminophen 325 MG TABLET 650 MG PO (08:34)
[2024-02-15] MEDS: polyethylene glycoL 3350 17 GM POWD.PACK PO (08:34)
[2024-02-15] MEDS: LORazepam 0.5 MG TABLET PO ×2 (08:35→19:37)
[2024-02-15] MEDS: Valsartan 160 MG TABLET PO (08:35)
[2024-02-15] MEDS: Escitalopram Oxalate 5 MG TABLET 15 MG PO (08:36)
[2024-02-15 19:34] VITALS: BP 133/75; PULSE 60; RESP 17; TEMP 36.4; O2SAT 99
[2024-02-15 19:36] VITALS: BP 133/75
[2024-02-15] MEDS: cloNIDine HCL 0.1 MG TABLET PO (19:36)
[2024-02-15] MEDS: QUEtiapine Fumarate 100 MG TABLET PO (19:37)
[2024-02-16] MEDS: polyethylene glycoL 3350 17 GM POWD.PACK PO (08:39)
[2024-02-16 08:40] VITALS: BP 118/61; PULSE 80; RESP 16; TEMP 36.4; O2SAT 100
[2024-02-16] MEDS: Valsartan 160 MG TABLET PO (08:41)
[2024-02-16] MEDS: cloNIDine HCL 0.1 MG TABLET PO ×2 (08:41→20:08)
[2024-02-16] MEDS: Escitalopram Oxalate 5 MG TABLET 15 MG PO (08:41)
[2024-02-16] MEDS: LORazepam 0.5 MG TABLET PO ×2 (08:41→20:11)
--- NOTE | 2024-02-16 18:55 | HO.PSYCHPN ---
Subjective Subjective Date of Service: 02/15/24 Reason For Visit: Catatonia Interim History: Late entry note for patient seen on 02/14 pt reports doing good and of note, affect much brighter and more present. Pt tolerating ECT and agrees to continue. Discussed plan that involves maintenance ECT post discharge. Pt however not sure where he'll live. Mental Status Exam Mental Status Exam Narrative: Pt is alert and oriented; behavior is cooperative, more friendly, not guarded, calm; patient is not in distress; dressed in casual attire with adequate hygiene; mood is described as good and affect congruent, brighter, naturally expressive; eye contact appropriate; Speech is normal rate, volume, prosody; no psychomotor retardation present; thought process is organized and goal directed; Thought content is on treatment; otherwise pertinent to relevant topics and without any delusional content, paranoid ideations or grandiosity; denies any SI/HI. No AVH. Patients insight and judgment fair Diagnostics Vital Signs (24Hr): Vital Signs - 24 hr 02/16/24 08:40 Temperature 97.6 F Pulse Rate 80 Respiratory Rate 16 Blood Pressure 118/61 Pulse Oximetry 100 Oxygen Delivery Method Room Air BMI result Body Mass Index 21.0 Imaging Radiology Impressions: ITS Impressions Head CT 02/06/24 10:14 IMPRESSION: No acute fracture, bony calvarium. No acute intracranial hemorrhage. Electronically signed by: Jevon Mcmahon MD 02/06/2024 10:49 AM EDT Medications Medications Current Medications Acetaminophen (Acetaminophen 325 Mg Tablet) 650 mg PO Q6H PRN PRN Reason: Headache/Pain Mild Scale (1-3) Last Admin: 02/15/24 08:34 Dose: 650 mg Al Hydroxide/Mg Hydroxide (Magnesium Hydrox/Alum Hydrox 30 Ml Oral.Susp) 30 ml PO Q6H PRN PRN Reason: Heartburn/Nausea Bisacodyl (Bisacodyl 5 Mg Tablet.Dr) 10 mg PO BEDTIME [facility] Last Admin: 02/15/24 19:38 Dose: Not Given Clonidine HCl (Clonidine Hcl 0.1 Mg Tablet) 0.1 mg PO BID [facility]; Protocol Last Admin: 02/16/24 08:41 Dose: 0.1 mg Escitalopram Oxalate (Escitalopram Oxalate 5 Mg Tablet) 15 mg PO DAILY [facility] Last Admin: 11/03/24 08:41 Dose: 15 mg Hydroxyzine HCl (Hydroxyzine Hcl 25 Mg Tablet) 25 mg PO Q6H PRN PRN Reason: Anxiety Lorazepam (Lorazepam 0.5 Mg Tablet) 0.5 mg PO DAILY PRN PRN Reason: anxiety Lorazepam (Lorazepam 0.5 Mg Tablet) 0.5 mg PO BID [facility] Stop: 02/16/24 21:00 Last Admin: 02/16/24 08:41 Dose: 0.5 mg Lorazepam (Lorazepam 0.5 Mg Tablet) 0.5 mg PO DAILY [facility] Magnesium Hydroxide (Milk Of Magnesia 30 Ml Oral.Susp) 30 ml PO DAILY PRN PRN Reason: Constipation Naloxone HCl (Naloxone Hcl 0.4 Mg/Ml Vial) 0.04 mg IVPUSH Q5M PRN PRN Reason: Excessive sedation or RR < 8 Nicotine Polacrilex (Nicotine Polacrilex 2 Mg Gum) 4 mg BUCCAL Q2H PRN PRN Reason: Nicotine Cravings Polyethylene Glycol (Polyethylene Glycol 3350 17 Gm Powd.Pack) 17 gm PO DAILY PRN PRN Reason: Constipation Last Admin: 02/16/24 08:39 Dose: 17 gm Quetiapine Fumarate (Quetiapine Fumarate 25 Mg Tablet) 75 mg PO BEDTIME [facility] Trazodone HCl (Trazodone Hcl 50 Mg Tablet) 50 mg PO BEDTIME MRX1 PRN PRN Reason: Insomnia Last Admin: 02/10/24 20:02 Dose: 50 mg Valsartan (Valsartan 160 Mg Tablet) 160 mg PO DAILY [facility]; Protocol Last Admin: 02/16/24 08:41 Dose: 160 mg Allergies Allergies Allergy/AdvReac Type Severity Reaction Status Date / Time No Known Allergies Allergy Verified 01/31/24 19:31 Assessment & Plan Assessment & Plan (1) Catatonia: Status: Acute Code(s): F06.1 - Catatonic disorder due to known physiological condition (2) Major depressive disorder: Status: Acute Code(s): F32.9 - Major depressive disorder, single episode, unspecified (3) Preoperative clearance: Status: Acute Code(s): Z01.818 - Encounter for other preprocedural examination Plan HPI: The patient is a 68-year-old male, from his , living with his brother with a possible past history of frontotemporal dementia who was initially admitted at [facility] last month due to catatonia. Was treated with lorazepam with for improvement but later on taper it off. He was seen by his neurologist on January and recommended to go to the hospital since he relapsed on his catatonic symptoms. He was assessed in the emergency room of [facility], recommended the possibility of readmission with a facility that has ECT as a treatment option. On interview, the patient was pleasant, cooperative reported that he has been feeling more dysphoric and tired, he adamantly denies active suicidal ideation or paranoia. He looks hypoactive with psychomotor retardation. We discussed at length treatment options and he wants his brother to be involved in the decision making. We discussed options and he agreed to continue lorazepam on the meantime. His main concern is constipation, according to the nursing staff he was very somatically preoccupied with his bowel movements and medications. We are continuing Dulcolax that was started standing at [facility]. The patient is a very poor historian so we will try to gather more collateral information from his brother Formulation/clinical reasoning: Patient presents depressed and with significant catatonic symptoms. He is ambivalent about this diagnosis and treatment. Will consider ECT but currently hesitant. Will increase Ativan to 1 mg q.i.d. since patient did improve on 1 mg t.i.d. and declined once Ativan was discontinued (which is fairly diagnostic catatonia) Hospital course: 02/02 He reports his depression 09/22; flat and guarded refused to take Dulcolax last night; remains confused calm and hypoactive. . -meeting with his brother and another relative. He had been chronically depressed and now he is nearly catatonic. Not at his baseline. -Brother says patient does NOT have frontotemporal dementia. -Records from [facility] says neurologist dx with frontotemporal dementia but brother says this was later undiagnosed. 02/03 Patient appears depressed, slow moving, slow talking, thinking seems slowed. Tube Worker discussed symptoms and diagnosis of catatonia. Patient expressed ambivalence about accepting this diagnosis, wondering if it could be due to anxiety; also referenced an MRI that supposedly had benign brain lesion written in the impression and patient wondered if that could be the cause. Tube Worker shared how patient significantly improved per family and per patient when he took Ativan which is fairly diagnostic of catatonia. Discussed ECT and patient ambivalent but said he would consider. Patient reports and has been observed to repeat himself or repeat words over and over; patient observed to be internally preoccupied 02/04 discussed ECT and patient asked numerous, relevant questions. Says he's still deciding about it, but more accepting of condition and need for treatment. REmains internally preoccupied and repeating words to himself under his breath. 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 10/04/23 Brain MRI w/wo contrast concludes the ventricles are normal sized and configuration for pt's age all other imaging non-contributory CTA head/neck (chronic small vessel ischemic disease likely) EEG within normal limites; no...findings suggestive of a neurodegenerative process.. 02/06/24 ect scheduled for am hcp invoked but not affirmed hcp able to give informed consent pt scheduled for am med eval labs ekg reviewed unclear if pt will passively consent questions answered taper seroquel with catatonia lower ativan s/p fall head ct neg 02/06 saw patient before and after ECT. He denies side-effects other than slight headache and felt fine about procedure. He says a little better in that talking more spontaneously, less thought blocking, currently not repeating self...and overall looks for calm. Pt actually smiled and joked a little with curriculum writer, comfort tenorio. Discussed ECT and continuing ativan over the weekend. Pt ambivalent about ativan but will consider. -continue ativan 0.5mg TID (would like higher dose but pt did have fall last night, more likely due to Seroquel, at 2am, so it was lowered); will continue to help prevent resurgence of catatonia) (was 1mg q.i.d on the unit, since patient did significantly improve as an outpt (and at other hospital) on Ativan 1 mg t.i.d. though catatonia did not fully resolve; patient decompensated when Ativan was discontinued) 02/09 some improvement over the weekend, talking more fluidly today, seeing patient post ECT and he says he's doing better, no side-effects. 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 He also offers that he's not pacing any more nor repeating words to himself. He finds himself a / (10 being regular self). He agrees to continue ECT, treatment plan. 02/10 pt improving. However, he remains at high risk for return of catanonic symptoms and requires continued ECT, likely at least 6 treatments and then maintenance ECT -continue ativan for now 02/11 continue current treatment plan 02/12 will taper off Ativan at patient's request; starting at a very low dose and is minimally contributing towards patient's stability 02/13 continue treatment plan; Ativan taper -patient remains at high risk for decompensation and sliding back into catatonia. Patient requires continued ECT to mitigate this risk. 02/14 pt reports doing good and of note, affect much brighter and more present. Pt tolerating ECT and agrees to continue. Discussed plan that involves maintenance ECT post discharge. Pt however not sure where he'll live. Discussed lexapro and pt comfortable with current dose Plan: CV Invoked healthcare proxy Q 15 minute checks ECT #5 pending 02/17/2024 NPO will taper and dc Ativan continue lexapro Patient educated on: diagnosis, medication risk/benefits and ECT Informed Consent: understands Reason for continued inpatient stay Substantial Risk for: rapid decompensation Time Spent With Patient Time: Total time managing care of this patient today ____ minutes.
--- NOTE | 2024-02-16 18:55 | HO.PSYCHPN ---
Subjective Subjective Date of Service: 02/16/24 Reason For Visit: Catatonia Interim History: met with pt; discussed with team pt remains in good mood, feeling much better and close to regular self. agrees to continue ECXT Mental Status Exam Mental Status Exam Narrative: Pt is alert and oriented; behavior is cooperative, friendly, calm; patient is not in distress; dressed in casual attire with adequate hygiene; mood is described as good and affect congruent, brighter, naturally expressive; eye contact appropriate; Speech is normal rate, volume, prosody; no psychomotor retardation present; thought process is organized and goal directed; Thought content is on treatment; otherwise pertinent to relevant topics and without any delusional content, paranoid ideations or grandiosity; denies any SI/HI. No AVH. Patients insight and judgment fair Diagnostics Vital Signs (24Hr): Vital Signs - 24 hr 02/16/24 08:40 Temperature 97.6 F Pulse Rate 80 Respiratory Rate 16 Blood Pressure 118/61 Pulse Oximetry 100 Oxygen Delivery Method Room Air BMI result Body Mass Index 21.0 Imaging Radiology Impressions: ITS Impressions Head CT 02/06/24 10:14 IMPRESSION: No acute fracture, bony calvarium. No acute intracranial hemorrhage. Electronically signed by: Jevon Mcmahon MD 02/06/2024 10:49 AM EDT RP Medications Medications Current Medications Acetaminophen (Acetaminophen 325 Mg Tablet) 650 mg PO Q6H PRN PRN Reason: Headache/Pain Mild Scale (1-3) Last Admin: 02/15/24 08:34 Dose: 650 mg Al Hydroxide/Mg Hydroxide (Magnesium Hydrox/Alum Hydrox 30 Ml Oral.Susp) 30 ml PO Q6H PRN PRN Reason: Heartburn/Nausea Bisacodyl (Bisacodyl 5 Mg Tablet.Dr) 10 mg PO BEDTIME CALLIE Last Admin: 02/15/24 19:38 Dose: Not Given Clonidine HCl (Clonidine Hcl 0.1 Mg Tablet) 0.1 mg PO BID CALLIE; Protocol Last Admin: 02/16/24 08:41 Dose: 0.1 mg Escitalopram Oxalate (Escitalopram Oxalate 5 Mg Tablet) 15 mg PO DAILY CALLIE Last Admin: 02/16/24 08:41 Dose: 15 mg Hydroxyzine HCl (Hydroxyzine Hcl 25 Mg Tablet) 25 mg PO Q6H PRN PRN Reason: Anxiety Lorazepam (Lorazepam 0.5 Mg Tablet) 0.5 mg PO DAILY PRN PRN Reason: anxiety Lorazepam (Lorazepam 0.5 Mg Tablet) 0.5 mg PO BID CALLIE Stop: 02/16/24 21:00 Last Admin: 02/16/24 08:41 Dose: 0.5 mg Lorazepam (Lorazepam 0.5 Mg Tablet) 0.5 mg PO DAILY CALLIE Magnesium Hydroxide (Milk Of Magnesia 30 Ml Oral.Susp) 30 ml PO DAILY PRN PRN Reason: Constipation Naloxone HCl (Naloxone Hcl 0.4 Mg/Ml Vial) 0.04 mg IVPUSH Q5M PRN PRN Reason: Excessive sedation or RR < 8 Nicotine Polacrilex (Nicotine Polacrilex 2 Mg Gum) 4 mg BUCCAL Q2H PRN PRN Reason: Nicotine Cravings Polyethylene Glycol (Polyethylene Glycol 3350 17 Gm Powd.Pack) 17 gm PO DAILY PRN PRN Reason: Constipation Last Admin: 02/16/24 08:39 Dose: 17 gm Quetiapine Fumarate (Quetiapine Fumarate 25 Mg Tablet) 75 mg PO BEDTIME CALLIE Trazodone HCl (Trazodone Hcl 50 Mg Tablet) 50 mg PO BEDTIME MRX1 PRN PRN Reason: Insomnia Last Admin: 02/10/24 20:02 Dose: 50 mg Valsartan (Valsartan 160 Mg Tablet) 160 mg PO DAILY CALLIE; Protocol Last Admin: 02/16/24 08:41 Dose: 160 mg Allergies Allergies Allergy/AdvReac Type Severity Reaction Status Date / Time No Known Allergies Allergy Verified 01/31/24 19:31 Assessment & Plan Assessment & Plan (1) Catatonia: Status: Acute Code(s): F06.1 - Catatonic disorder due to known physiological condition (2) Major depressive disorder: Status: Acute Code(s): F32.9 - Major depressive disorder, single episode, unspecified (3) Preoperative clearance: Status: Acute Code(s): Z01.818 - Encounter for other preprocedural examination Plan HPI: The patient is a 68-year-old male, from his , living with his brother with a possible past history of frontotemporal dementia who was initially admitted at [facility] last month due to catatonia. Was treated with lorazepam with for improvement but later on taper it off. He was seen by his neurologist on January and recommended to go to the hospital since he relapsed on his catatonic symptoms. He was assessed in the emergency room of [facility], recommended the possibility of readmission with a facility that has ECT as a treatment option. On interview, the patient was pleasant, cooperative reported that he has been feeling more dysphoric and tired, he adamantly denies active suicidal ideation or paranoia. He looks hypoactive with psychomotor retardation. We discussed at length treatment options and he wants his brother to be involved in the decision making. We discussed options and he agreed to continue lorazepam on the meantime. His main concern is constipation, according to the nursing staff he was very somatically preoccupied with his bowel movements and medications. We are continuing Dulcolax that was started standing at [facility]. The patient is a very poor historian so we will try to gather more collateral information from his brother Formulation/clinical reasoning: Patient presents depressed and with significant catatonic symptoms. He is ambivalent about this diagnosis and treatment. Will consider ECT but currently hesitant. Will increase Ativan to 1 mg q.i.d. since patient did improve on 1 mg t.i.d. and declined once Ativan was discontinued (which is fairly diagnostic catatonia) Hospital course: 02/02 He reports his depression 09/22; flat and guarded refused to take Dulcolax last night; remains confused calm and hypoactive. . -meeting with his brother and another relative. He had been chronically depressed and now he is nearly catatonic. Not at his baseline. -Brother says patient does NOT have frontotemporal dementia. -Records from [facility] says neurologist dx with frontotemporal dementia but brother says this was later undiagnosed. 02/03 Patient appears depressed, slow moving, slow talking, thinking seems slowed. Director Of Online Education discussed symptoms and diagnosis of catatonia. Patient expressed ambivalence about accepting this diagnosis, wondering if it could be due to anxiety; also referenced an MRI that supposedly had benign brain lesion written in the impression and patient wondered if that could be the cause. Director Of Online Education shared how patient significantly improved per family and per patient when he took Ativan which is fairly diagnostic of catatonia. Discussed ECT and patient ambivalent but said he would consider. Patient reports and has been observed to repeat himself or repeat words over and over; patient observed to be internally preoccupied 02/04 discussed ECT and patient asked numerous, relevant questions. Says he's still deciding about it, but more accepting of condition and need for treatment. REmains internally preoccupied and repeating words to himself under his breath. 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 10/04/23 Brain MRI w/wo contrast concludes the ventricles are normal sized and configuration for pt's age all other imaging non-contributory CTA head/neck (chronic small vessel ischemic disease likely) EEG within normal limites; no...findings suggestive of a neurodegenerative process.. 02/06/24 ect scheduled for am hcp invoked but not affirmed hcp able to give informed consent pt scheduled for am med eval labs ekg reviewed unclear if pt will passively consent questions answered taper seroquel with catatonia lower ativan s/p fall head ct neg 02/06 saw patient before and after ECT. He denies side-effects other than slight headache and felt fine about procedure. He says a little better in that talking more spontaneously, less thought blocking, currently not repeating self...and overall looks for calm. 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 Discussed ECT and continuing ativan over the weekend. Pt ambivalent about ativan but will consider. -continue ativan 0.5mg TID (would like higher dose but pt did have fall last night, more likely due to Seroquel, at 2am, so it was lowered); will continue to help prevent resurgence of catatonia) (was 1mg q.i.d on the unit, since patient did significantly improve as an outpt (and at other hospital) on Ativan 1 mg t.i.d. though catatonia did not fully resolve; patient decompensated when Ativan was discontinued) 02/09 some improvement over the weekend, talking more fluidly today, seeing patient post ECT and he says he's doing better, no side-effects. 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 He also offers that he's not pacing any more nor repeating words to himself. He finds himself a 6/10 (10 being regular self). He agrees to continue ECT, treatment plan. 02/10 pt improving. However, he remains at high risk for return of catanonic symptoms and requires continued ECT, likely at least 6 treatments and then maintenance ECT -continue ativan for now 02/11 continue current treatment plan 02/12 will taper off Ativan at patient's request; starting at a very low dose and is minimally contributing towards patient's stability 02/13 continue treatment plan; Ativan taper -patient remains at high risk for decompensation and sliding back into catatonia. Patient requires continued ECT to mitigate this risk. 02/14 pt reports doing good and of note, affect much brighter and more present. Pt tolerating ECT and agrees to continue. Discussed plan that involves maintenance ECT post discharge. Pt however not sure where he'll live. Discussed lexapro and pt comfortable with current dose 02/15 ECT tomorrow; doing well. Continue ECT otherwise high risk for decompensation. Will discuss with other providers tomorrow Plan: CV Invoked healthcare proxy Q 15 minute checks ECT #5 pending 02/17/2024 NPO will taper and dc Ativan continue lexapro Patient educated on: diagnosis, medication risk/benefits and ECT Informed Consent: understands Reason for continued inpatient stay Substantial Risk for: rapid decompensation Time Spent With Patient Time: Total time managing care of this patient today ____ minutes.
[2024-02-16 20:06] VITALS: BP 143/74; PULSE 63; RESP 16; TEMP -13.6; TEMP 7.5; O2SAT 100
[2024-02-16 20:08] VITALS: BP 143/74
[2024-02-16] MEDS: QUEtiapine Fumarate 25 MG TABLET 75 MG PO (20:08)
[2024-02-17] VITALS (12 sets, daily range): BP systolic 113–156; BP diastolic 57–91; PULSE 50–82; RESP 16; TEMP 36.2–36.8; O2SAT 97–100
--- NOTE | 2024-02-17 06:52 | HO.ANESPROP2 ---
[facility] Active Problems Active Problems: All Active Problems Preoperative clearance (Acute) Major depressive disorder (Acute) Medical clearance for psychiatric admission (Acute) Catatonia (Acute) Frontotemporal dementia (Acute) Past Medical History Medical History HTN (hypertension) Family History Family history of problems with anesthesia: No Surgical History History of Problems with Anesthesia: No Social History Social History Household Members: Other Household Members Other:: lives w/ his brother according to the pt. Housing: House Do you presently have visiting nurse or other home services: No Patient Tobacco Use Status: Never used Tobacco Smoked in Last 30 Days: No e-Cigarette/Vaping Use: Never Used Patient Interested in Nicotine Replacement: No (Pt said he never smoke.) Patient Given Instructions on How to Stop Smoking: No Second Hand Smoke Exposure: No Use of substances other than those prescribed or required for medical reasons: No Currently Displaying Signs/Symptoms of Drug Intoxication Withdrawal: No Have you been hit, kicked, punched, or otherwise hurt by someone within the past year? If so, by whom?: No Do you feel safe in your current relationship?: No Current Relationship Is there a partner from a previous relationship who is making you feel unsafe now?: No Are you made to feel afraid or neglected: No Advance Directives: No Advance Directives Information Provided: Yes Do you have thoughts of harming others: None Do you have a plan to hurt others: No Plan Recently lost weight without trying: No How much weight loss: Not applicable Eating poorly because of decreased appetite: No Nutrition screen score: 0 Poor oral hygiene: No service: No Sexual orientation: Straight/Heterosexual Meds Allergies Allergy/AdvReac Type Severity Reaction Status Date / Time No Known Allergies Allergy Verified 01/31/24 19:31 Active Medications: Current Medications Acetaminophen (Acetaminophen 325 Mg Tablet) 650 mg PO Q6H PRN PRN Reason: Headache/Pain Mild Scale (1-3) Last Admin: 02/15/24 08:34 Dose: 650 mg Al Hydroxide/Mg Hydroxide (Magnesium Hydrox/Alum Hydrox 30 Ml Oral.Susp) 30 ml PO Q6H PRN PRN Reason: Heartburn/Nausea Bisacodyl (Bisacodyl 5 Mg Tablet.) 10 mg PO BEDTIME REPLACED BY [facility] Last Admin: 02/16/24 20:11 Dose: Not Given Clonidine HCl (Clonidine Hcl 0.1 Mg Tablet) 0.1 mg PO BID REPLACED BY [facility]; Protocol Last Admin: 02/16/24 20:08 Dose: 0.1 mg Escitalopram Oxalate (Escitalopram Oxalate 5 Mg Tablet) 15 mg PO DAILY REPLACED BY [facility] Last Admin: 02/16/24 08:41 Dose: 15 mg Hydroxyzine HCl (Hydroxyzine Hcl 25 Mg Tablet) 25 mg PO Q6H PRN PRN Reason: Anxiety Lorazepam (Lorazepam 0.5 Mg Tablet) 0.5 mg PO DAILY PRN PRN Reason: anxiety Lorazepam (Lorazepam 0.5 Mg Tablet) 0.5 mg PO DAILY CALLIE Magnesium Hydroxide (Milk Of Magnesia 30 Ml Oral.Susp) 30 ml PO DAILY PRN PRN Reason: Constipation Naloxone HCl (Naloxone Hcl 0.4 Mg/Ml Vial) 0.04 mg IVPUSH Q5M PRN PRN Reason: Excessive sedation or RR < 8 Nicotine Polacrilex (Nicotine Polacrilex 2 Mg Gum) 4 mg BUCCAL Q2H PRN PRN Reason: Nicotine Cravings Polyethylene Glycol (Polyethylene Glycol 3350 17 Gm Powd.Pack) 17 gm PO DAILY PRN PRN Reason: Constipation Last Admin: 02/16/24 08:39 Dose: 17 gm Quetiapine Fumarate (Quetiapine Fumarate 25 Mg Tablet) 75 mg PO BEDTIME REPLACED BY [facility] Last Admin: 02/16/24 20:08 Dose: 75 mg Trazodone HCl (Trazodone Hcl 50 Mg Tablet) 50 mg PO BEDTIME MRX1 PRN PRN Reason: Insomnia Last Admin: 02/10/24 20:02 Dose: 50 mg Valsartan (Valsartan 160 Mg Tablet) 160 mg PO DAILY REPLACED BY [facility]; Protocol Last Admin: 02/16/24 08:41 Dose: 160 mg Home Medications ?Medication ?Instructions ?Recorded ?Confirmed ?Last Taken ?Type bisacodyl 5 mg tablet,delayed 10 mg PO BEDTIME 01/31/24 01/31/24 01/30/24 21:00 History release clonidine HCl 0.1 mg tablet 0.1 mg PO BID 01/31/24 01/31/24 Unknown History escitalopram oxalate 5 mg tablet 15 mg PO DAILY 01/31/24 01/31/24 Unknown History lorazepam 1 mg tablet (Ativan) 1 mg PO TID 01/31/24 01/31/24 Unknown History polyethylene glycol 3350 17 gram 17 g PO DAILY PRN Constipation 01/31/24 01/31/24 01/29/24 20:00 History oral powder packet quetiapine 150 mg tablet 150 mg PO BEDTIME 01/31/24 01/31/24 Unknown History valsartan 160 mg tablet 160 mg PO DAILY 01/31/24 01/31/24 Unknown History Exam Height,Weight and Vital Signs: Height 6 ft Weight 70.125 kg Last Vital Signs Temp 97.3 F 02/17/24 06:34 Pulse 50 02/17/24 06:34 Resp 16 02/17/24 06:34 BP 134/75 02/17/24 06:34 Pulse Ox 97 02/17/24 06:34 O2 Del Method Room Air 02/17/24 06:34 O2 Flow Rate 2 02/14/24 14:17 Pertinent Lab Results Pertinent Lab Results: Laboratory Tests 02/01/24 07:03 Estimat Average Glucose 94 Hemoglobin A1c % 4.9 Magnesium 1.9 Triglycerides 60 Cholesterol 213 H LDL Cholesterol, Calc 120 H HDL Cholesterol 81 Vitamin B12 1141 H Folate 9.1 TSH 3.50 Free T4 1.00 Airway Mallampati Class: II TM Dist: >3cm Neck ROM: Full Heart: rrr Lungs: cta Assessment and Plan Assessment Anesthesia Assessment: Anesthesia Plan Discussed and Chart Reviewed Final Anesthetic Review Family History of Problems with Anesthesia: No History of Problems with Anesthesia: No NPO: Yes ASA Class: III Final Preanesthetic Review: No Changes in Pt Med Stat, Meds/Allgs Chart Reviewed and Consent Obtained/Reviewed Patient Risk: Intermediate Procedure Risk: Intermediate Anesthetic Plan Anesthetic Plan: GA Disposition: Standard PACU
[2024-02-17] MEDS: Lactated Ringers 1,000 ML 50 ML IVCONT (07:04)
--- NOTE | 2024-02-17 07:06 | MHC.SHP ---
Pre-Procedural Eval Section A - 24 Hr Update-Section A only Date of Service: 02/17/24 The patient is an INPATIENT: Yes Changes since office visit: No Cold of Flu in the past 2 weeks, No New Medical Problems, No Changes in Medication and No Patient answered all questions The patient has been examined within 24 hours of the surgical procedure. The History & Physical has been completed within 30 days and I have reviewed it.: Yes Section B - Complete if H&P > 30 days Chief Complaint: Catatonia Allergies: Allergies Allergy/AdvReac Type Severity Reaction Status Date / Time No Known Allergies Allergy Verified 01/31/24 19:31 Plan I have reviewed the history and physical and performed a pertinent physical examination on my patient. No changes have occurred unless specified. Time Spent With Patient Time: Total time managing care of this patient today ____ minutes.
--- NOTE | 2024-02-17 07:24 | HO.ECTPROC ---
ECT Procedure Note Diagnosis/Treatment Date of Service: 02/17/24 Diagnosis: Major Depressive Disorder and Catatonia Previous ECT Date: 02/14/24 Current Treatment Number: 5 Treatment: Series Interval Clinical Notes: The patient's mood improved remarably, he is alert, awake, no evidence of catatatonia with a brighter affect. No side effects with the previous ECT. ECT done as usual, no complications, seizure was longer than usual but he woke up well. Time: Total time managing care of this patient today ____ minutes. ECT Settings Device: THYMATRON DGx Electrode Placement: Bifrontal Program/Pulse Width: 0.25 Energy Percent: 60 Seizure Duration By EEG (in seconds): 100 By Motor Observation (in seconds): 45 Medications Administration General Anesthetic: Etomidate (10) Muscle Relaxant: Succinylcholine (80) Ancillary Medications Anti-emetics: Zofran - Pre ECT Miscillaneous Medications: Propofol (50 mg after ECT) Airway Management Airway Management: Bag Mask Ventilation Treatment Recommendations No Changes Recommended: No change Pt Tolerated Procedure w/o Issue: Yes
[2024-02-17] MEDS: Valsartan 160 MG TABLET PO (10:32)
[2024-02-17] MEDS: Escitalopram Oxalate 5 MG TABLET 15 MG PO (10:33)
[2024-02-17] MEDS: cloNIDine HCL 0.1 MG TABLET PO ×2 (10:33→20:31)
[2024-02-17] MEDS: LORazepam 0.5 MG TABLET PO (10:34)
--- NOTE | 2024-02-17 11:49 | PC.NURSE ---
August's vitals post ECT were 152/78, 97.6 (temp), 59bpm (HR), and 98% O2 sat. August's provider Dr. Smith made aware via [facility]. Per Dr. Smith OK to give meds late. AM meds administer per JUN.
[2024-02-17] MEDS: polyethylene glycoL 3350 17 GM POWD.PACK PO (11:58)
[2024-02-17] MEDS: QUEtiapine Fumarate 25 MG TABLET 75 MG PO (20:32)
[2024-02-18 07:55] VITALS: BP 116/70; PULSE 68; RESP 18; TEMP 36.7; O2SAT 99
[2024-02-18] MEDS: Escitalopram Oxalate 5 MG TABLET 15 MG PO (08:27)
[2024-02-18] MEDS: cloNIDine HCL 0.1 MG TABLET PO ×2 (08:27→20:07)
[2024-02-18] MEDS: LORazepam 0.5 MG TABLET PO (08:27)
[2024-02-18] MEDS: Valsartan 160 MG TABLET PO (08:27)
[2024-02-18] MEDS: polyethylene glycoL 3350 17 GM POWD.PACK PO (09:27)
--- NOTE | 2024-02-18 10:28 | HO.PSYCHPN ---
Subjective Subjective Reason For Visit: Catatonia Diagnostics Vital Signs (24Hr): Vital Signs - 24 hr 02/17/24 20:30 02/17/24 20:31 02/18/24 07:55 Temperature 98.3 F 98.1 F Pulse Rate 67 68 Respiratory Rate 16 18 Blood Pressure 119/64 119/64 116/70 Pulse Oximetry 97 99 Oxygen Delivery Method Room Air Room Air BMI result Body Mass Index 21.0 Imaging Radiology Impressions: ITS Impressions Head CT 02/06/24 10:14 IMPRESSION: No acute fracture, bony calvarium. No acute intracranial hemorrhage. Electronically signed by: Jevon Mcmahon MD 02/06/2024 10:49 AM EDT RP Medications Medications Current Medications Acetaminophen (Acetaminophen 325 Mg Tablet) 650 mg PO Q6H PRN PRN Reason: Headache/Pain Mild Scale (1-3) Last Admin: 02/15/24 08:34 Dose: 650 mg Al Hydroxide/Mg Hydroxide (Magnesium Hydrox/Alum Hydrox 30 Ml Oral.Susp) 30 ml PO Q6H PRN PRN Reason: Heartburn/Nausea Bisacodyl (Bisacodyl 5 Mg Tablet.Dr) 10 mg PO BEDTIME [facility] Last Admin: 02/17/24 20:33 Dose: Not Given Clonidine HCl (Clonidine Hcl 0.1 Mg Tablet) 0.1 mg PO BID [facility]; Protocol Last Admin: 02/18/24 08:27 Dose: 0.1 mg Escitalopram Oxalate (Escitalopram Oxalate 5 Mg Tablet) 15 mg PO DAILY [facility] Last Admin: 02/18/24 08:27 Dose: 15 mg Hydroxyzine HCl (Hydroxyzine Hcl 25 Mg Tablet) 25 mg PO Q6H PRN PRN Reason: Anxiety Lorazepam (Lorazepam 0.5 Mg Tablet) 0.5 mg PO DAILY PRN PRN Reason: anxiety Lorazepam (Lorazepam 0.5 Mg Tablet) 0.5 mg PO DAILY [facility] Last Admin: 02/18/24 08:27 Dose: 0.5 mg Magnesium Hydroxide (Milk Of Magnesia 30 Ml Oral.Susp) 30 ml PO DAILY PRN PRN Reason: Constipation Naloxone HCl (Naloxone Hcl 0.4 Mg/Ml Vial) 0.04 mg IVPUSH Q5M PRN PRN Reason: Excessive sedation or RR < 8 Naloxone HCl (Naloxone Hcl 0.4 Mg/Ml Vial) 0.04 mg IVPUSH Q5M PRN PRN Reason: Excessive sedation or RR < 8 Nicotine Polacrilex (Nicotine Polacrilex 2 Mg Gum) 4 mg BUCCAL Q2H PRN PRN Reason: Nicotine Cravings Polyethylene Glycol (Polyethylene Glycol 3350 17 Gm Powd.Pack) 17 gm PO DAILY PRN PRN Reason: Constipation Last Admin: 02/18/24 09:27 Dose: 17 gm Quetiapine Fumarate (Quetiapine Fumarate 25 Mg Tablet) 75 mg PO BEDTIME [facility] Last Admin: 02/17/24 20:32 Dose: 75 mg Trazodone HCl (Trazodone Hcl 50 Mg Tablet) 50 mg PO BEDTIME MRX1 PRN PRN Reason: Insomnia Last Admin: 02/10/24 20:02 Dose: 50 mg Valsartan (Valsartan 160 Mg Tablet) 160 mg PO DAILY [facility]; Protocol Last Admin: 02/18/24 08:27 Dose: 160 mg Allergies Allergies Allergy/AdvReac Type Severity Reaction Status Date / Time No Known Allergies Allergy Verified 01/31/24 19:31 Assessment & Plan Assessment & Plan (1) Catatonia: Status: Acute Code(s): F06.1 - Catatonic disorder due to known physiological condition (2) Major depressive disorder: Status: Acute Code(s): F32.9 - Major depressive disorder, single episode, unspecified (3) Preoperative clearance: Status: Acute Code(s): Z01.818 - Encounter for other preprocedural examination Plan HPI: The patient is a 68-year-old male, from his , living with his brother with a possible past history of frontotemporal dementia who was initially admitted at [facility] last month due to catatonia. Was treated with lorazepam with for improvement but later on taper it off. He was seen by his neurologist on January and recommended to go to the hospital since he relapsed on his catatonic symptoms. He was assessed in the emergency room of [facility], recommended the possibility of readmission with a facility that has ECT as a treatment option. On interview, the patient was pleasant, cooperative reported that he has been feeling more dysphoric and tired, he adamantly denies active suicidal ideation or paranoia. He looks hypoactive with psychomotor retardation. We discussed at length treatment options and he wants his brother to be involved in the decision making. We discussed options and he agreed to continue lorazepam on the meantime. His main concern is constipation, according to the nursing staff he was very somatically preoccupied with his bowel movements and medications. We are continuing Dulcolax that was started standing at [facility]. The patient is a very poor historian so we will try to gather more collateral information from his brother Formulation/clinical reasoning: Patient presents depressed and with significant catatonic symptoms. He is ambivalent about this diagnosis and treatment. Will consider ECT but currently hesitant. Will increase Ativan to 1 mg q.i.d. since patient did improve on 1 mg t.i.d. and declined once Ativan was discontinued (which is fairly diagnostic catatonia) Hospital course: 02/02 He reports his depression 09/22; flat and guarded refused to take Dulcolax last night; remains confused calm and hypoactive. . -meeting with his brother and another relative. He had been chronically depressed and now he is nearly catatonic. Not at his baseline. -Brother says patient does NOT have frontotemporal dementia. -Records from [facility] says neurologist dx with frontotemporal dementia but brother says this was later undiagnosed. 02/03 Patient appears depressed, slow moving, slow talking, thinking seems slowed. Computer Information Systems Professor discussed symptoms and diagnosis of catatonia. Patient expressed ambivalence about accepting this diagnosis, wondering if it could be due to anxiety; also referenced an MRI that supposedly had benign brain lesion written in the impression and patient wondered if that could be the cause. Computer Information Systems Professor shared how patient significantly improved per family and per patient when he took Ativan which is fairly diagnostic of catatonia. Discussed ECT and patient ambivalent but said he would consider. Patient reports and has been observed to repeat himself or repeat words over and over; patient observed to be internally preoccupied 02/04 discussed ECT and patient asked numerous, relevant questions. Says he's still deciding about it, but more accepting of condition and need for treatment. REmains internally preoccupied and repeating words to himself under his breath. 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 10/04/23 Brain MRI w/wo contrast concludes the ventricles are normal sized and configuration for pt's age all other imaging non-contributory CTA head/neck (chronic small vessel ischemic disease likely) EEG within normal limites; no...findings suggestive of a neurodegenerative process.. 02/06/24 ect scheduled for am hcp invoked but not affirmed hcp able to give informed consent pt scheduled for am med eval labs ekg reviewed unclear if pt will passively consent questions answered taper seroquel with catatonia lower ativan s/p fall head ct neg 02/06 saw patient before and after ECT. He denies side-effects other than slight headache and felt fine about procedure. He says a little better in that talking more spontaneously, less thought blocking, currently not repeating self...and overall looks for calm. Pt actually smiled and joked a little with abstract writer, comfort first. Discussed ECT and continuing ativan over the weekend. Pt ambivalent about ativan but will consider. -continue ativan 0.5mg TID (would like higher dose but pt did have fall last night, more likely due to Seroquel, at 2am, so it was lowered); will continue to help prevent resurgence of catatonia) (was 1mg q.i.d on the unit, since patient did significantly improve as an outpt (and at other hospital) on Ativan 1 mg t.i.d. though catatonia did not fully resolve; patient decompensated when Ativan was discontinued) 02/09 some improvement over the weekend, talking more fluidly today, seeing patient post ECT and he says he's doing better, no side-effects. 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 He also offers that he's not pacing any more nor repeating words to himself. He finds himself a 09/22 (10 being regular self). He agrees to continue ECT, treatment plan. 02/10 pt improving. However, he remains at high risk for return of catanonic symptoms and requires continued ECT, likely at least 6 treatments and then maintenance ECT -continue ativan for now 02/11 continue current treatment plan 02/12 will taper off Ativan at patient's request; starting at a very low dose and is minimally contributing towards patient's stability 02/13 continue treatment plan; Ativan taper -patient remains at high risk for decompensation and sliding back into catatonia. Patient requires continued ECT to mitigate this risk. Plan: CV Invoked healthcare proxy Q 15 minute checks ECT #5 pending 02/17/2024 NPO Lowered Ativan to 0.5 mg b.i.d.; will taper and DC continue lexapro Time Spent With Patient Time: Total time managing care of this patient today ____ minutes.
--- NOTE | 2024-02-18 10:53 | HO.POSTANES ---
Post Anesthesia Evaluation Post Anesthesia Evaluation Date of Service: 02/17/24 Vital Signs: Vital Signs Temp Pulse Resp BP Pulse Ox O2 Del Method 02/18/24 07:55 98.1 F 68 18 116/70 99 Room Air Anesthesia: General Mental Status: Awake Pain Control: Satisfactory Nausea/Vomiting: None Hydration: Adequate Anesthesia-Related Issues: No Anes. Related Issues
[2024-02-18 20:00] VITALS: BP 138/80; PULSE 61; RESP 18; TEMP 37; O2SAT 99
[2024-02-18] MEDS: QUEtiapine Fumarate 25 MG TABLET 75 MG PO (20:08)
[2024-02-18] MEDS: bisacodyL 5 MG TABLET.DR 10 MG PO (20:08)
[2024-02-19] VITALS (9 sets, daily range): BP systolic 128–152; BP diastolic 66–93; PULSE 51–78; RESP 16–18; TEMP 36.3–36.6; O2SAT 94–100
--- NOTE | 2024-02-19 | ECG_ITS ---
Test Reason : PRE ECT Blood Pressure : / mmHG Vent. Rate : 052 BPM Atrial Rate : 052 BPM P-R Int : 164 ms QRS Dur : 096 ms QT Int : 432 ms P-R-T Axes : 068 073 072 degrees QTc Int : 401 ms Sinus bradycardia Otherwise normal ECG When compared with ECG of 04-FEB-2024 13:52, No significant change was found Referred By: Cahrbel Smith Electronically Signed By:SHERRY BHATIA MD
--- NOTE | 2024-02-19 11:02 | HO.PSYCHPN ---
Subjective Subjective Date of Service: 02/17/24 Reason For Visit: Catatonia Interim History: met with patient; discussed with team seeing pt post ECT; he says feeling good with bright affect. Discussed case with Dr. Sahni and Sarah who agree with getting additional ECT this wed, making it number 6? and then will reassess Diagnostics Vital Signs (24Hr): Vital Signs - 24 hr 02/18/24 20:00 02/19/24 07:47 Temperature 98.6 F 97.6 F Pulse Rate 61 56 Respiratory Rate 18 16 Blood Pressure 138/80 128/75 Pulse Oximetry 99 99 Oxygen Delivery Method Room Air Room Air BMI result Body Mass Index 21.0 Imaging Radiology Impressions: ITS Impressions Head CT 02/06/24 10:14 IMPRESSION: No acute fracture, bony calvarium. No acute intracranial hemorrhage. Electronically signed by: Jevon Mcmahon MD 02/06/2024 10:49 AM EDT RP Medications Medications Current Medications Acetaminophen (Acetaminophen 325 Mg Tablet) 650 mg PO Q6H PRN PRN Reason: Headache/Pain Mild Scale (1-3) Last Admin: 02/15/24 08:34 Dose: 650 mg Al Hydroxide/Mg Hydroxide (Magnesium Hydrox/Alum Hydrox 30 Ml Oral.Susp) 30 ml PO Q6H PRN PRN Reason: Heartburn/Nausea Bisacodyl (Bisacodyl 5 Mg Tablet.Dr) 10 mg PO BEDTIME [facility] Last Admin: 02/18/24 20:08 Dose: 10 mg Clonidine HCl (Clonidine Hcl 0.1 Mg Tablet) 0.1 mg PO BID [facility]; Protocol Last Admin: 02/19/24 10:04 Dose: Not Given Escitalopram Oxalate (Escitalopram Oxalate 5 Mg Tablet) 15 mg PO DAILY [facility] Last Admin: 02/19/24 10:04 Dose: Not Given Hydroxyzine HCl (Hydroxyzine Hcl 25 Mg Tablet) 25 mg PO Q6H PRN PRN Reason: Anxiety Lorazepam (Lorazepam 0.5 Mg Tablet) 0.5 mg PO DAILY PRN PRN Reason: anxiety Lorazepam (Lorazepam 0.5 Mg Tablet) 0.5 mg PO DAILY [facility] Last Admin: 02/19/24 10:04 Dose: Not Given Magnesium Hydroxide (Milk Of Magnesia 30 Ml Oral.Susp) 30 ml PO DAILY PRN PRN Reason: Constipation Naloxone HCl (Naloxone Hcl 0.4 Mg/Ml Vial) 0.04 mg IVPUSH Q5M PRN PRN Reason: Excessive sedation or RR < 8 Naloxone HCl (Naloxone Hcl 0.4 Mg/Ml Vial) 0.04 mg IVPUSH Q5M PRN PRN Reason: Excessive sedation or RR < 8 Nicotine Polacrilex (Nicotine Polacrilex 2 Mg Gum) 4 mg BUCCAL Q2H PRN PRN Reason: Nicotine Cravings Polyethylene Glycol (Polyethylene Glycol 3350 17 Gm Powd.Pack) 17 gm PO DAILY PRN PRN Reason: Constipation Last Admin: 02/18/24 09:27 Dose: 17 gm Quetiapine Fumarate (Quetiapine Fumarate 25 Mg Tablet) 75 mg PO BEDTIME [facility] Last Admin: 02/18/24 20:08 Dose: 75 mg Trazodone HCl (Trazodone Hcl 50 Mg Tablet) 50 mg PO BEDTIME MRX1 PRN PRN Reason: Insomnia Last Admin: 02/10/24 20:02 Dose: 50 mg Valsartan (Valsartan 160 Mg Tablet) 160 mg PO DAILY [facility]; Protocol Last Admin: 02/19/24 10:04 Dose: Not Given Allergies Allergies Allergy/AdvReac Type Severity Reaction Status Date / Time No Known Allergies Allergy Verified 01/31/24 19:31 Assessment & Plan Assessment & Plan (1) Catatonia: Status: Acute Code(s): F06.1 - Catatonic disorder due to known physiological condition (2) Major depressive disorder: Status: Acute Code(s): F32.9 - Major depressive disorder, single episode, unspecified (3) Preoperative clearance: Status: Acute Code(s): Z01.818 - Encounter for other preprocedural examination Plan HPI: The patient is a 68-year-old male, from his , living with his brother with a possible past history of frontotemporal dementia who was initially admitted at [facility] last month due to catatonia. Was treated with lorazepam with for improvement but later on taper it off. He was seen by his neurologist on January and recommended to go to the hospital since he relapsed on his catatonic symptoms. He was assessed in the emergency room of [facility], recommended the possibility of readmission with a facility that has ECT as a treatment option. On interview, the patient was pleasant, cooperative reported that he has been feeling more dysphoric and tired, he adamantly denies active suicidal ideation or paranoia. He looks hypoactive with psychomotor retardation. We discussed at length treatment options and he wants his brother to be involved in the decision making. We discussed options and he agreed to continue lorazepam on the meantime. His main concern is constipation, according to the nursing staff he was very somatically preoccupied with his bowel movements and medications. We are continuing Dulcolax that was started standing at [facility]. The patient is a very poor historian so we will try to gather more collateral information from his brother Formulation/clinical reasoning: Patient presents depressed and with significant catatonic symptoms. He is ambivalent about this diagnosis and treatment. Will consider ECT but currently hesitant. Will increase Ativan to 1 mg q.i.d. since patient did improve on 1 mg t.i.d. and declined once Ativan was discontinued (which is fairly diagnostic catatonia) Hospital course: 02/02 He reports his depression 09/22; flat and guarded refused to take Dulcolax last night; remains confused calm and hypoactive. . -meeting with his brother and another relative. He had been chronically depressed and now he is nearly catatonic. Not at his baseline. -Brother says patient does NOT have frontotemporal dementia. -Records from [facility] says neurologist dx with frontotemporal dementia but brother says this was later undiagnosed. 02/03 Patient appears depressed, slow moving, slow talking, thinking seems slowed. Washery Engineer discussed symptoms and diagnosis of catatonia. Patient expressed ambivalence about accepting this diagnosis, wondering if it could be due to anxiety; also referenced an MRI that supposedly had benign brain lesion written in the impression and patient wondered if that could be the cause. Washery Engineer shared how patient significantly improved per family and per patient when he took Ativan which is fairly diagnostic of catatonia. Discussed ECT and patient ambivalent but said he would consider. Patient reports and has been observed to repeat himself or repeat words over and over; patient observed to be internally preoccupied 02/04 discussed ECT and patient asked numerous, relevant questions. Says he's still deciding about it, but more accepting of condition and need for treatment. REmains internally preoccupied and repeating words to himself under his breath. 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 10/04/23 Brain MRI w/wo contrast concludes the ventricles are normal sized and configuration for pt's age all other imaging non-contributory CTA head/neck (chronic small vessel ischemic disease likely) EEG within normal limites; no...findings suggestive of a neurodegenerative process.. 02/06/24 ect scheduled for am hcp invoked but not affirmed hcp able to give informed consent pt scheduled for am med eval labs ekg reviewed unclear if pt will passively consent questions answered taper seroquel with catatonia lower ativan s/p fall head ct neg 02/06 saw patient before and after ECT. He denies side-effects other than slight headache and felt fine about procedure. He says a little better in that talking more spontaneously, less thought blocking, currently not repeating self...and overall looks for calm. Pt actually smiled and joked a little with creative writer, comfort tenorio. Discussed ECT and continuing ativan over the weekend. Pt ambivalent about ativan but will consider. -continue ativan 0.5mg TID (would like higher dose but pt did have fall last night, more likely due to Seroquel, at 2am, so it was lowered); will continue to help prevent resurgence of catatonia) (was 1mg q.i.d on the unit, since patient did significantly improve as an outpt (and at other hospital) on Ativan 1 mg t.i.d. though catatonia did not fully resolve; patient decompensated when Ativan was discontinued) 02/09 some improvement over the weekend, talking more fluidly today, seeing patient post ECT and he says he's doing better, no side-effects. 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 He also offers that he's not pacing any more nor repeating words to himself. He finds himself a 6/10 (10 being regular self). He agrees to continue ECT, treatment plan. 02/10 pt improving. However, he remains at high risk for return of catanonic symptoms and requires continued ECT, likely at least 6 treatments and then maintenance ECT -continue ativan for now 02/11 continue current treatment plan 02/12 will taper off Ativan at patient's request; starting at a very low dose and is minimally contributing towards patient's stability 02/13 continue treatment plan; Ativan taper -patient remains at high risk for decompensation and sliding back into catatonia. Patient requires continued ECT to mitigate this risk. 02/14 pt reports doing good and of note, affect much brighter and more present. Pt tolerating ECT and agrees to continue. Discussed plan that involves maintenance ECT post discharge. Pt however not sure where he'll live. Discussed lexapro and pt comfortable with current dose 02/15 ECT tomorrow; doing well. Continue ECT otherwise high risk for decompensation. Will discuss with other providers tomorrow 02/16 seeing pt post ECT; he says feeling good with bright affect. Discussed case with Dr. Sahni and Sarah who agree with getting additional ECT this wed, making it number 6? and then will reassess; pt asks and creative writer agrees to further taper, dc ativan. Pt had also asked to lower seroquel dose to 75mg to see if tolerates which he has Plan: CV Invoked healthcare proxy Q 15 minute checks ECT #6 pending 02/19/2024 NPO will taper and dc Ativan continue lexapro lowered seroquel to 75mg Patient educated on: diagnosis, medication risk/benefits and ECT Informed Consent: understands Reason for continued inpatient stay Substantial Risk for: rapid decompensation Time Spent With Patient Time: Total time managing care of this patient today ____ minutes.
--- NOTE | 2024-02-19 11:07 | HO.PSYCHPN ---
Subjective Subjective Date of Service: 02/18/24 Reason For Visit: Catatonia Interim History: late entry note for pt seen on 02/17 remains doing well; ECT tomorrow. no complaints Mental Status Exam Mental Status Exam Narrative: Pt is alert and oriented; behavior is cooperative, friendly, calm; patient is not in distress; dressed in casual attire with adequate hygiene; mood is described as good and affect congruent, brighter, naturally expressive; eye contact appropriate; Speech is normal rate, volume, prosody; no psychomotor retardation present; thought process is organized and goal directed; Thought content is on treatment; otherwise pertinent to relevant topics and without any delusional content, paranoid ideations or grandiosity; denies any SI/HI. No AVH. Patients insight and judgment fair Diagnostics Vital Signs (24Hr): Vital Signs - 24 hr 02/18/24 20:00 02/19/24 07:47 Temperature 98.6 F 97.6 F Pulse Rate 61 56 Respiratory Rate 18 16 Blood Pressure 138/80 128/75 Pulse Oximetry 99 99 Oxygen Delivery Method Room Air Room Air BMI result Body Mass Index 21.0 Imaging Radiology Impressions: ITS Impressions Head CT 02/06/24 10:14 IMPRESSION: No acute fracture, bony calvarium. No acute intracranial hemorrhage. Electronically signed by: Jevon Mcmahon MD 02/06/2024 10:49 AM EDT Medications Medications Current Medications Acetaminophen (Acetaminophen 325 Mg Tablet) 650 mg PO Q6H PRN PRN Reason: Headache/Pain Mild Scale (1-3) Last Admin: 02/15/24 08:34 Dose: 650 mg Al Hydroxide/Mg Hydroxide (Magnesium Hydrox/Alum Hydrox 30 Ml Oral.Susp) 30 ml PO Q6H PRN PRN Reason: Heartburn/Nausea Bisacodyl (Bisacodyl 5 Mg Tablet.) 10 mg PO BEDTIME CALLIE Last Admin: 02/18/24 20:08 Dose: 10 mg Clonidine HCl (Clonidine Hcl 0.1 Mg Tablet) 0.1 mg PO BID [facility]; Protocol Last Admin: 02/19/24 10:04 Dose: Not Given Escitalopram Oxalate (Escitalopram Oxalate 5 Mg Tablet) 15 mg PO DAILY [facility] Last Admin: 02/19/24 10:04 Dose: Not Given Hydroxyzine HCl (Hydroxyzine Hcl 25 Mg Tablet) 25 mg PO Q6H PRN PRN Reason: Anxiety Lorazepam (Lorazepam 0.5 Mg Tablet) 0.5 mg PO DAILY PRN PRN Reason: anxiety Lorazepam (Lorazepam 0.5 Mg Tablet) 0.5 mg PO DAILY CALLIE Last Admin: 02/19/24 10:04 Dose: Not Given Magnesium Hydroxide (Milk Of Magnesia 30 Ml Oral.Susp) 30 ml PO DAILY PRN PRN Reason: Constipation Naloxone HCl (Naloxone Hcl 0.4 Mg/Ml Vial) 0.04 mg IVPUSH Q5M PRN PRN Reason: Excessive sedation or RR < 8 Naloxone HCl (Naloxone Hcl 0.4 Mg/Ml Vial) 0.04 mg IVPUSH Q5M PRN PRN Reason: Excessive sedation or RR < 8 Nicotine Polacrilex (Nicotine Polacrilex 2 Mg Gum) 4 mg BUCCAL Q2H PRN PRN Reason: Nicotine Cravings Polyethylene Glycol (Polyethylene Glycol 3350 17 Gm Powd.Pack) 17 gm PO DAILY PRN PRN Reason: Constipation Last Admin: 02/18/24 09:27 Dose: 17 gm Quetiapine Fumarate (Quetiapine Fumarate 25 Mg Tablet) 75 mg PO BEDTIME CALLIE Last Admin: 02/18/24 20:08 Dose: 75 mg Trazodone HCl (Trazodone Hcl 50 Mg Tablet) 50 mg PO BEDTIME MRX1 PRN PRN Reason: Insomnia Last Admin: 02/10/24 20:02 Dose: 50 mg Valsartan (Valsartan 160 Mg Tablet) 160 mg PO DAILY [facility]; Protocol Last Admin: 02/19/24 10:04 Dose: Not Given Allergies Allergies Allergy/AdvReac Type Severity Reaction Status Date / Time No Known Allergies Allergy Verified 01/31/24 19:31 Assessment & Plan Assessment & Plan (1) Catatonia: Status: Acute Code(s): F06.1 - Catatonic disorder due to known physiological condition (2) Major depressive disorder: Status: Acute Code(s): F32.9 - Major depressive disorder, single episode, unspecified (3) Preoperative clearance: Status: Acute Code(s): Z01.818 - Encounter for other preprocedural examination Plan HPI: The patient is a 68-year-old male, from his , living with his brother with a possible past history of frontotemporal dementia who was initially admitted at [facility] last month due to catatonia. Was treated with lorazepam with for improvement but later on taper it off. He was seen by his neurologist on January and recommended to go to the hospital since he relapsed on his catatonic symptoms. He was assessed in the emergency room of [facility], recommended the possibility of readmission with a facility that has ECT as a treatment option. On interview, the patient was pleasant, cooperative reported that he has been feeling more dysphoric and tired, he adamantly denies active suicidal ideation or paranoia. He looks hypoactive with psychomotor retardation. We discussed at length treatment options and he wants his brother to be involved in the decision making. We discussed options and he agreed to continue lorazepam on the meantime. His main concern is constipation, according to the nursing staff he was very somatically preoccupied with his bowel movements and medications. We are continuing Dulcolax that was started standing at [facility]. The patient is a very poor historian so we will try to gather more collateral information from his brother Formulation/clinical reasoning: Patient presents depressed and with significant catatonic symptoms. He is ambivalent about this diagnosis and treatment. Will consider ECT but currently hesitant. Will increase Ativan to 1 mg q.i.d. since patient did improve on 1 mg t.i.d. and declined once Ativan was discontinued (which is fairly diagnostic catatonia) Hospital course: 02/02 He reports his depression 09/22; flat and guarded refused to take Dulcolax last night; remains confused calm and hypoactive. . -meeting with his brother and another relative. He had been chronically depressed and now he is nearly catatonic. Not at his baseline. -Brother says patient does NOT have frontotemporal dementia. -Records from [facility] says neurologist dx with frontotemporal dementia but brother says this was later undiagnosed. 02/03 Patient appears depressed, slow moving, slow talking, thinking seems slowed. Regional Transfer Liaison discussed symptoms and diagnosis of catatonia. Patient expressed ambivalence about accepting this diagnosis, wondering if it could be due to anxiety; also referenced an MRI that supposedly had benign brain lesion written in the impression and patient wondered if that could be the cause. Regional Transfer Liaison shared how patient significantly improved per family and per patient when he took Ativan which is fairly diagnostic of catatonia. Discussed ECT and patient ambivalent but said he would consider. Patient reports and has been observed to repeat himself or repeat words over and over; patient observed to be internally preoccupied 02/04 discussed ECT and patient asked numerous, relevant questions. Says he's still deciding about it, but more accepting of condition and need for treatment. REmains internally preoccupied and repeating words to himself under his breath. 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 10/04/23 Brain MRI w/wo contrast concludes the ventricles are normal sized and configuration for pt's age all other imaging non-contributory CTA head/neck (chronic small vessel ischemic disease likely) EEG within normal limites; no...findings suggestive of a neurodegenerative process.. 02/06/24 ect scheduled for am hcp invoked but not affirmed hcp able to give informed consent pt scheduled for am med eval labs ekg reviewed unclear if pt will passively consent questions answered taper seroquel with catatonia lower ativan s/p fall head ct neg 02/06 saw patient before and after ECT. He denies side-effects other than slight headache and felt fine about procedure. He says a little better in that talking more spontaneously, less thought blocking, currently not repeating self...and overall looks for calm. Pt actually smiled and joked a little with magazine writer, comfort tenorio. Discussed ECT and continuing ativan over the weekend. Pt ambivalent about ativan but will consider. -continue ativan 0.5mg TID (would like higher dose but pt did have fall last night, more likely due to Seroquel, at 2am, so it was lowered); will continue to help prevent resurgence of catatonia) (was 1mg q.i.d on the unit, since patient did significantly improve as an outpt (and at other hospital) on Ativan 1 mg t.i.d. though catatonia did not fully resolve; patient decompensated when Ativan was discontinued) 02/09 some improvement over the weekend, talking more fluidly today, seeing patient post ECT and he says he's doing better, no side-effects. 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 He also offers that he's not pacing any more nor repeating words to himself. He finds himself a / (10 being regular self). He agrees to continue ECT, treatment plan. 02/10 pt improving. However, he remains at high risk for return of catanonic symptoms and requires continued ECT, likely at least 6 treatments and then maintenance ECT -continue ativan for now 02/11 continue current treatment plan 02/12 will taper off Ativan at patient's request; starting at a very low dose and is minimally contributing towards patient's stability 02/13 continue treatment plan; Ativan taper -patient remains at high risk for decompensation and sliding back into catatonia. Patient requires continued ECT to mitigate this risk. 02/14 pt reports doing good and of note, affect much brighter and more present. Pt tolerating ECT and agrees to continue. Discussed plan that involves maintenance ECT post discharge. Pt however not sure where he'll live. Discussed lexapro and pt comfortable with current dose 02/15 ECT tomorrow; doing well. Continue ECT otherwise high risk for decompensation. Will discuss with other providers tomorrow 02/16 seeing pt post ECT; he says feeling good with bright affect. Discussed case with Dr. Sahni and Sarah who agree with getting additional ECT this wed, making it number 6? and then will reassess; pt asks and magazine writer agrees to further taper, dc ativan. Pt had also asked to lower seroquel dose to 75mg to see if tolerates which he has 02/17 ECT tomorrow; doing well; dispo planning so pt can get maintenance Plan: CV Invoked healthcare proxy Q 15 minute checks ECT #6 pending 02/19/2024 NPO will taper and dc Ativan continue lexapro lowered seroquel to 75mg Patient educated on: diagnosis, medication risk/benefits and ECT Informed Consent: understands Reason for continued inpatient stay Substantial Risk for: stable for discharge and rapid decompensation Time Spent With Patient Time: Total time managing care of this patient today ____ minutes.
[2024-02-19 12:03] LABS: Anion Gap 10 (12-20); Blood Urea Nitrogen 15 mg/dL (9-16); Calcium 8.7 mg/dL (8.4-10.2); Carbon Dioxide 33 mmol/L (22-29); Chloride 106 mmol/L (96-108); Creatinine Clr Calc Pharmacy 100.1; Estimated Glomerular Filt Rate > 60; Glucose Random 84 mg/dL (60-115); Potassium 4.8 mmol/L (3.3-5.1); Sodium 144 mmol/L (135-145)
[2024-02-19 12:10] LABS: B Type Natriuretic Peptide 228 pg/mL (<100)
--- NOTE | 2024-02-19 13:01 | HO.PM.IMCN ---
History of Present Illness Data of Consult Service Date: 02/19/24 Requesting physician: Dre Hidalgo Primary Care Provider: Unknown Physician HPI Reason for consult: Bilateral lower extremity and left upper extremity edema Patient is a 68-year-old male with a past medical history significant for hypertension and history of catatonia, consulted for bilateral lower extremity edema and left upper extremity edema. Patient had ECT 02/16 and he is scheduled for it again later this afternoon. He reports that the lower extremity edema is chronic however maybe slightly worsened since ECT on 02/16. He received IV fluids during the procedure. He denies any chest pain or shortness of breath. He notes left upper extremity edema centralized to the medial left elbow since ECT as well. No pain with palpation. No diagnosis of CHF. Review of Systems Constitutional: Constitutional: Denies chills, Denies fever(s) and Denies headache(s) Eyes: Eyes: Denies change in vision ENT: Denies headache(s) Cardiovascular: Cardiovascular: Denies chest pain, Denies rapid heart rate, Denies leg edema (only bilateral feet) and Denies dyspnea Respiratory: Respiratory: Denies cough and Denies dyspnea Musculoskeletal: Musculoskeletal: Reports tingling (bilateral feet) Integumentary/Breasts: Skin/Breast: Denies rash Neurologic: Denies headache(s) and Reports tingling (bilateral feet) [facility] Medical History HTN (hypertension) Functional capacity: independent ambulation Social History Household Members: Other Household Members Other:: lives w/ his brother according to the pt. Housing: House Do you presently have visiting nurse or other home services: No Patient Tobacco Use Status: Never used Tobacco Smoked in Last 30 Days: No e-Cigarette/Vaping Use: Never Used Patient Interested in Nicotine Replacement: No (Pt said he never smoke.) Patient Given Instructions on How to Stop Smoking: No Second Hand Smoke Exposure: No Use of substances other than those prescribed or required for medical reasons: No Currently Displaying Signs/Symptoms of Drug Intoxication Withdrawal: No Have you been hit, kicked, punched, or otherwise hurt by someone within the past year? If so, by whom?: No Do you feel safe in your current relationship?: No Current Relationship Is there a partner from a previous relationship who is making you feel unsafe now?: No Are you made to feel afraid or neglected: No Advance Directives: No Advance Directives Information Provided: Yes Do you have thoughts of harming others: None Do you have a plan to hurt others: No Plan Recently lost weight without trying: No How much weight loss: Not applicable Eating poorly because of decreased appetite: No Nutrition screen score: 0 Poor oral hygiene: No service: No Sexual orientation: Straight/Heterosexual Meds Allergies Allergy/AdvReac Type Severity Reaction Status Date / Time No Known Allergies Allergy Verified 01/31/24 19:31 Active Medications: Current Medications Acetaminophen (Acetaminophen 325 Mg Tablet) 650 mg PO Q6H PRN PRN Reason: Headache/Pain Mild Scale (1-3) Last Admin: 02/15/24 08:34 Dose: 650 mg Al Hydroxide/Mg Hydroxide (Magnesium Hydrox/Alum Hydrox 30 Ml Oral.Susp) 30 ml PO Q6H PRN PRN Reason: Heartburn/Nausea Bisacodyl (Bisacodyl 5 Mg Tablet.Dr) 10 mg PO BEDTIME [facility] Last Admin: 02/18/24 20:08 Dose: 10 mg Clonidine HCl (Clonidine Hcl 0.1 Mg Tablet) 0.1 mg PO BID [facility]; Protocol Last Admin: 02/19/24 10:04 Dose: Not Given Escitalopram Oxalate (Escitalopram Oxalate 5 Mg Tablet) 15 mg PO DAILY [facility] Last Admin: 02/19/24 10:04 Dose: Not Given Furosemide (Furosemide 20 Mg Tablet) 20 mg PO DAILY [facility]; Protocol Hydroxyzine HCl (Hydroxyzine Hcl 25 Mg Tablet) 25 mg PO Q6H PRN PRN Reason: Anxiety Lorazepam (Lorazepam 0.5 Mg Tablet) 0.5 mg PO DAILY PRN PRN Reason: anxiety Lorazepam (Lorazepam 0.5 Mg Tablet) 0.5 mg PO DAILY [facility] Last Admin: 02/19/24 10:04 Dose: Not Given Magnesium Hydroxide (Milk Of Magnesia 30 Ml Oral.Susp) 30 ml PO DAILY PRN PRN Reason: Constipation Naloxone HCl (Naloxone Hcl 0.4 Mg/Ml Vial) 0.04 mg IVPUSH Q5M PRN PRN Reason: Excessive sedation or RR < 8 Naloxone HCl (Naloxone Hcl 0.4 Mg/Ml Vial) 0.04 mg IVPUSH Q5M PRN PRN Reason: Excessive sedation or RR < 8 Nicotine Polacrilex (Nicotine Polacrilex 2 Mg Gum) 4 mg BUCCAL Q2H PRN PRN Reason: Nicotine Cravings Polyethylene Glycol (Polyethylene Glycol 3350 17 Gm Powd.Pack) 17 gm PO DAILY PRN PRN Reason: Constipation Last Admin: 02/18/24 09:27 Dose: 17 gm Quetiapine Fumarate (Quetiapine Fumarate 25 Mg Tablet) 75 mg PO BEDTIME CALLIE Last Admin: 02/18/24 20:08 Dose: 75 mg Trazodone HCl (Trazodone Hcl 50 Mg Tablet) 50 mg PO BEDTIME MRX1 PRN PRN Reason: Insomnia Last Admin: 02/10/24 20:02 Dose: 50 mg Valsartan (Valsartan 160 Mg Tablet) 160 mg PO DAILY [facility]; Protocol Last Admin: 02/19/24 10:04 Dose: Not Given Home Medications ?Medication ?Instructions ?Recorded ?Confirmed ?Last Taken ?Type bisacodyl 5 mg tablet,delayed 10 mg PO BEDTIME 01/31/24 01/31/24 01/30/24 21:00 History release clonidine HCl 0.1 mg tablet 0.1 mg PO BID 01/31/24 01/31/24 Unknown History escitalopram oxalate 5 mg tablet 15 mg PO DAILY 01/31/24 01/31/24 Unknown History lorazepam 1 mg tablet (Ativan) 1 mg PO TID 01/31/24 01/31/24 Unknown History polyethylene glycol 3350 17 gram 17 g PO DAILY PRN Constipation 01/31/24 01/31/24 01/29/24 20:00 History oral powder packet quetiapine 150 mg tablet 150 mg PO BEDTIME 01/31/24 01/31/24 Unknown History valsartan 160 mg tablet 160 mg PO DAILY 01/31/24 01/31/24 Unknown History Physical Exam Vital Signs and Narrative: Vital Signs: Last Vital Signs Temp 97.6 F 02/19/24 07:47 Pulse 56 02/19/24 07:47 Resp 16 02/19/24 07:47 BP 128/75 02/19/24 07:47 Pulse Ox 99 02/19/24 07:47 O2 Del Method Room Air 02/19/24 07:47 O2 Flow Rate 2 02/17/24 08:10 BMI result Body Mass Index 21.0 General: AOx3, no acute distress, more conversational than previous Resp: CTA bilaterally CVS: S1, S2, RRR Skin: Warm, dry Extremities: Bilateral foot edema, 1+ pitting, sensation and motor intact. centralized area of edema L medial elbow, no pain with palpation, non-pitting Psych: Appropriate affect Results Labs 02/19/24 11:40 Labs: Laboratory Results - last 24 hr 02/19/24 11:40 Anion Gap 10 L Estim Creat Clear Calc 100.1 Estimated GFR > 60 Random Glucose 84 Calcium 8.7 B-Natriuretic Peptide 228 H Assessment and Plan (1) Edema of both feet: Status: Acute Plan Patient is a 68-year-old male with a past medical history significant for hypertension and history of catatonia, consulted for bilateral lower extremity edema and left upper extremity edema. edema - no dx of CHF, but chronic in nature per pt - echo - start lasix 20mg QD - monitor edema - encourage leg elevation - BNP elevated at 228, no baseline to compare - ok to proceed with ECT today, hold IV fluids, provider notified Thank you for allowing me to participate in the pt's care. Will continue to follow. Please contact the medical team if any questions or concerns. Total time managing care of this patient today: 20 minutes.
--- NOTE | 2024-02-19 14:26 | MHC.SHP ---
Pre-Procedural Eval Section A - 24 Hr Update-Section A only Date of Service: 02/19/24 The patient is an INPATIENT: Yes Changes since office visit: No Cold of Flu in the past 2 weeks, No New Medical Problems, No Changes in Medication and No Patient answered all questions The patient has been examined within 24 hours of the surgical procedure. The History & Physical has been completed within 30 days and I have reviewed it.: Yes Section B - Complete if H&P > 30 days Chief Complaint: Catatonia Allergies: Allergies Allergy/AdvReac Type Severity Reaction Status Date / Time No Known Allergies Allergy Verified 01/31/24 19:31 Plan I have reviewed the history and physical and performed a pertinent physical examination on my patient. No changes have occurred unless specified. Time Spent With Patient Time: Total time managing care of this patient today ____ minutes.
--- NOTE | 2024-02-19 14:39 | HO.ECTPROC ---
ECT Procedure Note Diagnosis/Treatment Date of Service: 02/19/24 Diagnosis: Major Depressive Disorder Previous ECT Date: 02/17/24 Current Treatment Number: 6 Treatment: Series Interval Clinical Notes: The patient reported improvement of mood, his affect is wider. Reported mild headache after the last procedrue. ECT done as per previous parameters but he had a very long seizure that resolved by itself. No complications. Probably, he would need a lower stimuli. Time: Total time managing care of this patient today __30__ minutes. ECT Settings Device: THYMATRON DGx Electrode Placement: Bifrontal Program/Pulse Width: 0.25 Energy Percent: 60 Seizure Duration By EEG (in seconds): 77 By Motor Observation (in seconds): 45 Medications Administration General Anesthetic: Etomidate (10) Muscle Relaxant: Succinylcholine (80) Ancillary Medications Miscillaneous Medications: Propofol Airway Management Airway Management: Bag Mask Ventilation Treatment Recommendations Electrode Placement: Bifrontal Program/Pulse Width: 0.25 Energy Percent: 50 Notes: Probalbly he would do better with a lower stiimuli 50% at 0.25 Pt Tolerated Procedure w/o Issue: Yes
--- NOTE | 2024-02-19 16:05 | HO.PSYCHPN ---
Subjective Subjective Date of Service: 02/19/24 Reason For Visit: Catatonia Subjective Notes: Conditional Voluntary Interim History: The nursing staff reported the patient had been pleasant, cooperative, reported no new symptoms or side effects with current medications. On interview the patient denies worsening of depression he reported that ECT has helped him a lot. Working on discharge planning. Mental Status Exam Mental Status Exam Patient Appearance: Well Grooomed Patient Orientation: Person and Situation Level of Consciousness: Awake and Appropriate Patient Behavior: Guarded and Passive Mood Description: Calm Affect Description: Constricted Patient Cognition Impaired: Yes Ability to Follow Directions: Good Speech Pattern: Clear Hallucinations: None Delusions: Not Present Thought Process: Distracted Thought Content: positive for Circumstantial Judgement: Fair Diagnostics Vital Signs (24Hr): Vital Signs - 24 hr 02/18/24 20:00 02/19/24 07:47 02/19/24 14:22 Temperature 98.6 F 97.6 F 97.4 F Pulse Rate 61 56 51 Respiratory Rate 18 16 16 Blood Pressure 138/80 128/75 143/83 H Pulse Oximetry 99 99 96 Oxygen Delivery Method Room Air Room Air Room Air Oxygen Flow Rate 02/19/24 14:48 02/19/24 14:55 02/19/24 15:00 Temperature 97.9 F Pulse Rate 55 60 60 Respiratory Rate 18 18 18 Blood Pressure 129/73 132/93 H 134/86 Pulse Oximetry 97 97 94 Oxygen Delivery Method Nasal Cannula Nasal Cannula Nasal Cannula Oxygen Flow Rate 2 2 2 02/19/24 15:05 02/19/24 15:20 02/19/24 15:35 Temperature 97.4 F Pulse Rate 67 56 62 Respiratory Rate 16 16 16 Blood Pressure 149/87 H 147/88 H 152/93 H Pulse Oximetry 94 94 94 Oxygen Delivery Method Nasal Cannula Room Air Room Air Oxygen Flow Rate 2 BMI result Body Mass Index 21.0 Labs 02/19/24 11:40 Labs: Laboratory Results - last 48 hr 02/19/24 11:40 Sodium 144 Potassium 4.8 Chloride 106 Carbon Dioxide 33 H Anion Gap 10 L BUN 15 Creatinine 0.72 Estim Creat Clear Calc 100.1 Estimated GFR > 60 Random Glucose 84 Calcium 8.7 B-Natriuretic Peptide 228 H Imaging Radiology Impressions: ITS Impressions Head CT 02/06/24 10:14 IMPRESSION: No acute fracture, bony calvarium. No acute intracranial hemorrhage. Electronically signed by: Jevon Mcmahon MD 02/06/2024 10:49 AM EDT Medications Medications Current Medications Acetaminophen (Acetaminophen 325 Mg Tablet) 650 mg PO Q6H PRN PRN Reason: Headache/Pain Mild Scale (1-3) Last Admin: 02/15/24 08:34 Dose: 650 mg Al Hydroxide/Mg Hydroxide (Magnesium Hydrox/Alum Hydrox 30 Ml Oral.Susp) 30 ml PO Q6H PRN PRN Reason: Heartburn/Nausea Bisacodyl (Bisacodyl 5 Mg Tablet.Dr) 10 mg PO BEDTIME CALLIE Last Admin: 02/18/24 20:08 Dose: 10 mg Clonidine HCl (Clonidine Hcl 0.1 Mg Tablet) 0.1 mg PO BID CALLIE; Protocol Last Admin: 02/19/24 10:04 Dose: Not Given Escitalopram Oxalate (Escitalopram Oxalate 5 Mg Tablet) 15 mg PO DAILY CALLIE Last Admin: 02/19/24 10:04 Dose: Not Given Furosemide (Furosemide 20 Mg Tablet) 20 mg PO DAILY CALLIE; Protocol Hydroxyzine HCl (Hydroxyzine Hcl 25 Mg Tablet) 25 mg PO Q6H PRN PRN Reason: Anxiety Lorazepam (Lorazepam 0.5 Mg Tablet) 0.5 mg PO DAILY PRN PRN Reason: anxiety Magnesium Hydroxide (Milk Of Magnesia 30 Ml Oral.Susp) 30 ml PO DAILY PRN PRN Reason: Constipation Naloxone HCl (Naloxone Hcl 0.4 Mg/Ml Vial) 0.04 mg IVPUSH Q5M PRN PRN Reason: Excessive sedation or RR < 8 Naloxone HCl (Naloxone Hcl 0.4 Mg/Ml Vial) 0.04 mg IVPUSH Q5M PRN PRN Reason: Excessive sedation or RR < 8 Naloxone HCl (Naloxone Hcl 0.4 Mg/Ml Vial) 0.04 mg IVPUSH Q5M PRN PRN Reason: Excessive sedation or RR < 8 Nicotine Polacrilex (Nicotine Polacrilex 2 Mg Gum) 4 mg BUCCAL Q2H PRN PRN Reason: Nicotine Cravings Polyethylene Glycol (Polyethylene Glycol 3350 17 Gm Powd.Pack) 17 gm PO DAILY PRN PRN Reason: Constipation Last Admin: 02/18/24 09:27 Dose: 17 gm Quetiapine Fumarate (Quetiapine Fumarate 25 Mg Tablet) 75 mg PO BEDTIME CALLIE Last Admin: 02/18/24 20:08 Dose: 75 mg Trazodone HCl (Trazodone Hcl 50 Mg Tablet) 50 mg PO BEDTIME MRX1 PRN PRN Reason: Insomnia Last Admin: 02/10/24 20:02 Dose: 50 mg Valsartan (Valsartan 160 Mg Tablet) 160 mg PO DAILY CALLIE; Protocol Last Admin: 02/19/24 10:04 Dose: Not Given Allergies Allergies Allergy/AdvReac Type Severity Reaction Status Date / Time No Known Allergies Allergy Verified 01/31/24 19:31 Assessment & Plan Assessment & Plan (1) Edema of both feet: Status: Acute Code(s): R60.0 - Localized edema Plan Patient is a 68-year-old male with a past medical history significant for hypertension and history of catatonia, consulted for bilateral lower extremity edema and left upper extremity edema. edema - no dx of CHF, but chronic in nature per pt - echo - start lasix 20mg QD - monitor edema - encourage leg elevation - BNP elevated at 228, no baseline to compare - ok to proceed with ECT today, hold IV fluids, provider notified Plan 1. Continue with antidepressants and psychotropics. 2. Today he is having ECT. His mood has improved remarkably since we started with this. 3. Start discharge planning. Reason for continued inpatient stay Substantial Risk for: inability to function, rapid decompensation and med/psych decompensation Time Spent With Patient Time: Total time managing care of this patient today __20__ minutes.
[2024-02-19] MEDS: Escitalopram Oxalate 5 MG TABLET 15 MG PO (16:56)
[2024-02-19] MEDS: cloNIDine HCL 0.1 MG TABLET PO (20:17)
[2024-02-19] MEDS: QUEtiapine Fumarate 25 MG TABLET 75 MG PO (20:17)
[2024-02-19] MEDS: bisacodyL 5 MG TABLET.DR 10 MG PO (20:18)
[2024-02-19] MEDS: Ondansetron ODT 4 MG TAB.RAPDIS TRANSLINGU (20:37)
--- NOTE | 2024-02-20 07:00 | CA_ITS ---
Transthoracic Echocardiogram Patient (Last, First, Middle): August Crow, Gender: Male Date of : 1955 Age: 68 Procedure Date: 02/20/2024 Procedure Type: Transthoracic Echocardiogram Location: [facility] Height: 182.88 cm Weight: 69.85 kg BSA: 1.91 m2 Heart Rate: bpm BP: 128 / 75 mmHg Hospital Chief Financial Officer: TO Referring MD: Camila Mcguire PA-C Senior Electrical Design Engineer: Pedro Mercado MD Symptoms: bilateral LE edema, assess for CHF Study Quality: Adequate ECG Rhythm: Sinus Conclusions: - 1. Normal LV ejection fraction 60 65% 2. Mildly dilated left atrium 3. Normal cardiac valvular Dopplers 4. Upper limits of normal ascending aortic size 5. Normal RV systolic pressure with mildly elevated right atrial pressures 6. No gross pericardial effusion Findings Left Ventricle Normal left ventricular size, thickness, and systolic function. The visually estimated ejection fraction is between 60-65%. Spectral Doppler is indicative of a normal filling pattern. Right Ventricle Normal right ventricular cavity size and systolic function. Atria The left atrium is mildly dilated. There is no evidence of interatrial shunt. The right atrium is likely dilated. Aortic Valve Normal aortic valve structure and function. There is no aortic valve stenosis. There is no aortic valve regurgitation. Mitral Valve Normal mitral valve structure and function. There is trace mitral valve regurgitation. There is no mitral valve stenosis. Pulmonic Valve The pulmonic valve is likely normal. There is trace pulmonic valve regurgitation. Tricuspid Valve Normal tricuspid valve structure. There is trace tricuspid valve regurgitation. The right ventricular systolic pressure is normal. The right ventricular systolic pressure is 27 mmHg. Normal right atrial pressure. There is no evidence of pulmonary hypertension. Great Vessels The pulmonary artery was not well visualized. There is no dilatation of the ascending aorta measuring 3.50 cm. Venous The inferior vena cava is moderately dilated and collapses greater than 50% with inspiration. Pericardium/Pleural There is no evidence of pericardial effusion. Prior Study Comparison No prior study available for comparison. Measurements 2D Linear Measurements IVSd: 0.95 0.6-0.9/0.6-1.0 cm LVIDd: 5.25 3.9-5.3/4.2-5.9 cm LVIDd Index: 2.75 2.4-3.2/2.2-3.1 cm/m2 LVIDs: 3.43 2.0-3.6 cm LVPWd: 0.95 0.7-1.1 cm LA Diam: 3.90 2.7-3.8/3.0-4.0 cm LAIDs Index: 2.04 1.5-2.3 cm/m2 LV Mass: 230.29 67-162/88-224 g LV Mass Index: 120.57 43-95/49-115 g/m2 LVOT Diam: 2.20 3.0+(-)1.3 cm 2D Systolic Function EF 4C: 62.10 >55% EF 2C: 59.80 >55% EF BiP: 60.80 >55% Mitral Valve MV Pk E: 0.90 MV PK A: 0.34 MV Decel Time: 145.00 E/A: 2.60 E'Lateral: 9.79 E'Medial: 8.27 E/E' Med: 10.90 E/E' Lat: 9.20 PHT: 42.00 MVA PHT: 5.24 Decel Mcdowell: 6.20 Aortic Valve AoV Pk Abiodun: 1.49 AoV Mn Abiodun: 1.00 AoV VTI: 0.38 AoV Pk Grad: 9.00 Aov Mn Grad: 5.00 MEGAN Cont.VTI: 2.61 LVOT LVOT Pk Abiodun: 1.14 LVOT Mn Abiodun: 0.70 LVOT VTI: 0.26 LVOT Pk Grad: 5.00 LVOT Mn Grad: 2.00 LVOT Diam: 2.20 LVOT Area: 3.80 Diastolic Function MV Pk E: 0.90 MV Pk A: 0.34 E/A: 2.60 E'Medial: 8.27 E/E' Med: 10.90 E' Laterial: 9.79 E/E' Lat: 9.20 Right Ventricle TAPSE (mm): 28.10 TVS' Abiodun: 14.60 Tricuspid Valve TR Pk Abiodun: 2.17 TR Pk Grad: 19.00 RA Press: 8.00 RVSP: 27.00 Great Vessels Aorta Sinus of Valsalva: 3.45 2.0-3.5 cm Ao Asc: 3.50 2.1-3.4 cm Updated in Other Vendor System with Status of Final Pedro Mercado MD electronically signed on 02/21/2024 8:51:52 AM with status of Final
[2024-02-20 08:16] VITALS: BP 123/59; PULSE 71; RESP 17; TEMP 36.7; O2SAT 97
[2024-02-20] MEDS: Valsartan 160 MG TABLET PO (08:17)
[2024-02-20] MEDS: Acetaminophen 325 MG TABLET 650 MG PO (08:17)
[2024-02-20] MEDS: Furosemide 20 MG TABLET PO (08:18)
[2024-02-20] MEDS: cloNIDine HCL 0.1 MG TABLET PO ×2 (08:19→20:32)
[2024-02-20] MEDS: Escitalopram Oxalate 5 MG TABLET 15 MG PO (08:19)
--- NOTE | 2024-02-20 09:03 | HO.POSTANES ---
Post Anesthesia Evaluation Post Anesthesia Evaluation Date of Service: 02/19/24 Vital Signs: Vital Signs Temp Pulse Resp BP Pulse Ox O2 Del Method 02/20/24 08:16 98.1 F 71 17 123/59 L 97 Room Air Anesthesia: General Mental Status: Awake Pain Control: Satisfactory Nausea/Vomiting: None Hydration: Adequate Anesthesia-Related Issues: No Anes. Related Issues
[2024-02-20 13:44] VITALS: BMI 21.5
--- NOTE | 2024-02-20 16:16 | P.PNPSI_ITS ---
Subjective Subjective Date of Service: 02/20/24 Reason For Visit: Catatonia Subjective Notes: Conditional Voluntary Interim History: Pt slept most of the night. He presents with much brighter affect today. He reports ECT has helped him greatly in the sense that he can smile more often. He reports mood less hopeless and he is looking forward to going to [facility]. He denies SI/HI. Plan is to d/c next week to [facility], with one more ECT next week. Medication Compliance: Yes Review of Systems Review of Systems Patient has no acute medical complaints at this time. Yes all other systems are reviewed and are negative Constitutional: Denies body ache(s), Denies chills, Denies fever(s) and Denies headache(s) Eyes: Denies change in vision and Denies loss of vision Denies headache(s) Cardiovascular: Denies chest pain, Denies rapid heart rate, Denies leg edema (only bilateral feet), Denies lightheadedness and Denies dyspnea Respiratory: Denies cough and Denies dyspnea Gastrointestinal: Denies nausea and Denies vomiting Musculoskeletal: Reports tingling (bilateral feet) Skin/Breast: Denies rash Denies headache(s), Denies loss of vision, Denies convulsions and Reports tingling (bilateral feet) Mental Status Exam Mental Status Exam Narrative: Pt is alert and oriented; behavior is cooperative, friendly, calm; patient is not in distress; dressed in casual attire with adequate hygiene; mood is described as good and affect congruent, brighter, naturally expressive; eye contact appropriate; Speech is normal rate, volume, prosody; no psychomotor retardation present; thought process is organized and goal directed; Thought content is on treatment; otherwise pertinent to relevant topics and without any delusional content, paranoid ideations or grandiosity; denies any SI/HI. No AVH. Patients insight and judgment fair Diagnostics Vital Signs (24Hr): Vital Signs - 24 hr 02/19/24 20:00 02/20/24 08:16 Temperature 97.8 F 98.1 F Pulse Rate 78 71 Respiratory Rate 18 17 Blood Pressure 148/66 H 123/59 L Pulse Oximetry 100 97 Oxygen Delivery Method Room Air Room Air BMI result Body Mass Index 21.5 Labs 02/19/24 11:40 Labs: Laboratory Results - last 48 hr 02/19/24 11:40 Sodium 144 Potassium 4.8 Chloride 106 Carbon Dioxide 33 H Anion Gap 10 L BUN 15 Creatinine 0.72 Estim Creat Clear Calc 100.1 Estimated GFR > 60 Random Glucose 84 Calcium 8.7 B-Natriuretic Peptide 228 H Imaging Radiology Impressions: ITS Impressions Head CT 02/06/24 10:14 IMPRESSION: No acute fracture, bony calvarium. No acute intracranial hemorrhage. Electronically signed by: Jevon Mcmahon MD 02/06/2024 10:49 AM EDT Medications Medications Current Medications Acetaminophen (Acetaminophen 325 Mg Tablet) 650 mg PO Q6H PRN PRN Reason: Headache/Pain Mild Scale (1-3) Last Admin: 02/20/24 08:17 Dose: 650 mg Al Hydroxide/Mg Hydroxide (Magnesium Hydrox/Alum Hydrox 30 Ml Oral.Susp) 30 ml PO Q6H PRN PRN Reason: Heartburn/Nausea Bisacodyl (Bisacodyl 5 Mg Tablet.Dr) 10 mg PO BEDTIME CALLIE Last Admin: 02/19/24 20:18 Dose: 5 mg Clonidine HCl (Clonidine Hcl 0.1 Mg Tablet) 0.1 mg PO BID CALLIE; Protocol Last Admin: 02/20/24 08:19 Dose: 0.1 mg Escitalopram Oxalate (Escitalopram Oxalate 5 Mg Tablet) 15 mg PO DAILY CALLIE Last Admin: 02/20/24 08:19 Dose: 15 mg Furosemide (Furosemide 20 Mg Tablet) 20 mg PO DAILY CALLIE; Protocol Last Admin: 02/20/24 08:18 Dose: 20 mg Hydroxyzine HCl (Hydroxyzine Hcl 25 Mg Tablet) 25 mg PO Q6H PRN PRN Reason: Anxiety Lorazepam (Lorazepam 0.5 Mg Tablet) 0.5 mg PO DAILY PRN PRN Reason: anxiety Magnesium Hydroxide (Milk Of Magnesia 30 Ml Oral.Susp) 30 ml PO DAILY PRN PRN Reason: Constipation Naloxone HCl (Naloxone Hcl 0.4 Mg/Ml Vial) 0.04 mg IVPUSH Q5M PRN PRN Reason: Excessive sedation or RR < 8 Naloxone HCl (Naloxone Hcl 0.4 Mg/Ml Vial) 0.04 mg IVPUSH Q5M PRN PRN Reason: Excessive sedation or RR < 8 Naloxone HCl (Naloxone Hcl 0.4 Mg/Ml Vial) 0.04 mg IVPUSH Q5M PRN PRN Reason: Excessive sedation or RR < 8 Nicotine Polacrilex (Nicotine Polacrilex 2 Mg Gum) 4 mg BUCCAL Q2H PRN PRN Reason: Nicotine Cravings Ondansetron HCl (Ondansetron Odt 4 Mg Tab.Rapdis) 4 mg TRANSLINGU Q8H PRN PRN Reason: Nausea and Vomiting Last Admin: 02/19/24 20:37 Dose: 4 mg Polyethylene Glycol (Polyethylene Glycol 3350 17 Gm Powd.Pack) 17 gm PO DAILY PRN PRN Reason: Constipation Last Admin: 02/18/24 09:27 Dose: 17 gm Quetiapine Fumarate (Quetiapine Fumarate 25 Mg Tablet) 75 mg PO BEDTIME CALLIE Last Admin: 02/19/24 20:17 Dose: 75 mg Trazodone HCl (Trazodone Hcl 50 Mg Tablet) 50 mg PO BEDTIME MRX1 PRN PRN Reason: Insomnia Last Admin: 02/10/24 20:02 Dose: 50 mg Valsartan (Valsartan 160 Mg Tablet) 160 mg PO DAILY CALLIE; Protocol Last Admin: 02/20/24 08:17 Dose: 160 mg Allergies Allergies Allergy/AdvReac Type Severity Reaction Status Date / Time No Known Allergies Allergy Verified 01/31/24 19:31 Assessment & Plan Assessment & Plan (1) Major depressive disorder: Status: Acute Code(s): F32.9 - Major depressive disorder, single episode, unspecified Plan Patient is a 68-year-old male with a past medical history significant for hypertension and history of catatonia, consulted for bilateral lower extremity edema and left upper extremity edema. edema - no dx of CHF, but chronic in nature per pt - echo - start lasix 20mg QD - monitor edema - encourage leg elevation - BNP elevated at 228, no baseline to compare - ok to proceed with ECT today, hold IV fluids, provider notified Plan 02/19 continue tx. one more ECT next week. plan also to taper off seroquel. Reason for continued inpatient stay Substantial Risk for: inability to function Time Spent With Patient Time: Total time managing care of this patient today ____ minutes.
[2024-02-20 19:55] VITALS: BP 124/63; PULSE 60; RESP 18; TEMP 36.7; O2SAT 98
[2024-02-20] MEDS: QUEtiapine Fumarate 25 MG TABLET 75 MG PO (20:32)
[2024-02-21 06:24] VITALS: BP 136/77; PULSE 60; RESP 18; TEMP 36.4; O2SAT 97
[2024-02-21 07:05] VITALS: BP 139/75; PULSE 50; RESP 16; TEMP 36.3; O2SAT 97
[2024-02-21] MEDS: Lactated Ringers 1,000 ML 100 ML IVCONT (07:08)
[2024-02-21 08:00] VITALS: BP 130/68; PULSE 61; RESP 18; TEMP 36.8; O2SAT 99
[2024-02-21] MEDS: Escitalopram Oxalate 5 MG TABLET 15 MG PO (08:24)
[2024-02-21] MEDS: Valsartan 160 MG TABLET PO (08:25)
[2024-02-21] MEDS: cloNIDine HCL 0.1 MG TABLET PO ×2 (08:25→20:36)
[2024-02-21] MEDS: Furosemide 20 MG TABLET PO (08:25)
[2024-02-21] MEDS: polyethylene glycoL 3350 17 GM POWD.PACK PO (08:36)
--- NOTE | 2024-02-21 18:48 | HO.PSYCHPN ---
Subjective Subjective Date of Service: 02/21/24 Reason For Visit: Catatonia Interim History: Pt slept most of the night. He presents with much brighter affect today. He reports ECT has helped him greatly in the sense that he can smile more often. He reports mood less hopeless and he is looking forward to going to [facility]. He denies SI/HI. Plan is to d/c next week to [facility], with one more ECT next week. Review of Systems Review of Systems Patient has no acute medical complaints at this time. Yes all other systems are reviewed and are negative Constitutional: Denies body ache(s), Denies chills, Denies fever(s) and Denies headache(s) Eyes: Denies change in vision and Denies loss of vision Denies headache(s) Cardiovascular: Denies chest pain, Denies rapid heart rate, Denies leg edema (only bilateral feet), Denies lightheadedness and Denies dyspnea Respiratory: Denies cough and Denies dyspnea Gastrointestinal: Denies nausea and Denies vomiting Musculoskeletal: Reports tingling (bilateral feet) Skin/Breast: Denies rash Denies headache(s), Denies loss of vision, Denies convulsions and Reports tingling (bilateral feet) Mental Status Exam Mental Status Exam Narrative: Pt is alert and oriented; behavior is cooperative, friendly, calm; patient is not in distress; dressed in casual attire with adequate hygiene; mood is described as good and affect congruent, brighter, naturally expressive; eye contact appropriate; Speech is normal rate, volume, prosody; no psychomotor retardation present; thought process is organized and goal directed; Thought content is on treatment; otherwise pertinent to relevant topics and without any delusional content, paranoid ideations or grandiosity; denies any SI/HI. No AVH. Patients insight and judgment fair Diagnostics Vital Signs (24Hr): Vital Signs - 24 hr 02/20/24 19:55 02/21/24 06:24 02/21/24 07:05 Temperature 98.0 F 97.6 F 97.3 F Pulse Rate 60 60 50 Respiratory Rate 18 18 16 Blood Pressure 124/63 136/77 139/75 Pulse Oximetry 98 97 97 Oxygen Delivery Method Room Air Room Air 02/21/24 08:00 Temperature 98.2 F Pulse Rate 61 Respiratory Rate 18 Blood Pressure 130/68 Pulse Oximetry 99 Oxygen Delivery Method Room Air BMI result Body Mass Index 21.5 Labs 02/19/24 11:40 Imaging Radiology Impressions: ITS Impressions Head CT 02/06/24 10:14 IMPRESSION: No acute fracture, bony calvarium. No acute intracranial hemorrhage. Electronically signed by: Jevon Mcmahon MD 02/06/2024 10:49 AM EDT RP Medications Medications Current Medications Acetaminophen (Acetaminophen 325 Mg Tablet) 650 mg PO Q6H PRN PRN Reason: Headache/Pain Mild Scale (1-3) Last Admin: 02/20/24 08:17 Dose: 650 mg Al Hydroxide/Mg Hydroxide (Magnesium Hydrox/Alum Hydrox 30 Ml Oral.Susp) 30 ml PO Q6H PRN PRN Reason: Heartburn/Nausea Bisacodyl (Bisacodyl 5 Mg Tablet.Dr) 10 mg PO BEDTIME CALLIE Last Admin: 02/20/24 20:38 Dose: Not Given Clonidine HCl (Clonidine Hcl 0.1 Mg Tablet) 0.1 mg PO BID CALLIE; Protocol Last Admin: 02/21/24 08:25 Dose: 0.1 mg Escitalopram Oxalate (Escitalopram Oxalate 5 Mg Tablet) 15 mg PO DAILY CALLIE Last Admin: 02/21/24 08:24 Dose: 15 mg Furosemide (Furosemide 20 Mg Tablet) 20 mg PO DAILY CALLIE; Protocol Last Admin: 02/21/24 08:25 Dose: 20 mg Hydroxyzine HCl (Hydroxyzine Hcl 25 Mg Tablet) 25 mg PO Q6H PRN PRN Reason: Anxiety Lactated Ringer's (Lr) 1,000 mls @ 100 mls/hr IVCONT .Q10H CALLIE Last Admin: 02/21/24 18:46 Dose: Not Given Lorazepam (Lorazepam 0.5 Mg Tablet) 0.5 mg PO DAILY PRN PRN Reason: anxiety Magnesium Hydroxide (Milk Of Magnesia 30 Ml Oral.Susp) 30 ml PO DAILY PRN PRN Reason: Constipation Naloxone HCl (Naloxone Hcl 0.4 Mg/Ml Vial) 0.04 mg IVPUSH Q5M PRN PRN Reason: Excessive sedation or RR < 8 Naloxone HCl (Naloxone Hcl 0.4 Mg/Ml Vial) 0.04 mg IVPUSH Q5M PRN PRN Reason: Excessive sedation or RR < 8 Naloxone HCl (Naloxone Hcl 0.4 Mg/Ml Vial) 0.04 mg IVPUSH Q5M PRN PRN Reason: Excessive sedation or RR < 8 Nicotine Polacrilex (Nicotine Polacrilex 2 Mg Gum) 4 mg BUCCAL Q2H PRN PRN Reason: Nicotine Cravings Ondansetron HCl (Ondansetron Odt 4 Mg Tab.Rapdis) 4 mg TRANSLINGU Q8H PRN PRN Reason: Nausea and Vomiting Last Admin: 02/19/24 20:37 Dose: 4 mg Polyethylene Glycol (Polyethylene Glycol 3350 17 Gm Powd.Pack) 17 gm PO DAILY PRN PRN Reason: Constipation Last Admin: 02/21/24 08:36 Dose: 17 gm Quetiapine Fumarate (Quetiapine Fumarate 25 Mg Tablet) 75 mg PO BEDTIME CALLIE Last Admin: 02/20/24 20:32 Dose: 75 mg Trazodone HCl (Trazodone Hcl 50 Mg Tablet) 50 mg PO BEDTIME MRX1 PRN PRN Reason: Insomnia Last Admin: 02/10/24 20:02 Dose: 50 mg Valsartan (Valsartan 160 Mg Tablet) 160 mg PO DAILY CALLIE; Protocol Last Admin: 02/21/24 08:25 Dose: 160 mg Allergies Allergies Allergy/AdvReac Type Severity Reaction Status Date / Time No Known Allergies Allergy Verified 01/31/24 19:31 Assessment & Plan Assessment & Plan (1) Major depressive disorder: Status: Acute Code(s): F32.9 - Major depressive disorder, single episode, unspecified Plan Patient is a 68-year-old male with a past medical history significant for hypertension and history of catatonia, consulted for bilateral lower extremity edema and left upper extremity edema. edema - no dx of CHF, but chronic in nature per pt - echo - start lasix 20mg QD - monitor edema - encourage leg elevation - BNP elevated at 228, no baseline to compare - ok to proceed with ECT today, hold IV fluids, provider notified Plan 02/19 continue tx. one more ECT next week. plan also to taper off seroquel. 02/21 continue tx. ECT on Saturday, not next Sat. Reason for continued inpatient stay Substantial Risk for: inability to function Time Spent With Patient Time: Total time managing care of this patient today ____ minutes.
[2024-02-21 20:00] VITALS: BP 140/73; PULSE 60; RESP 18; TEMP 36.7; O2SAT 98
[2024-02-21] MEDS: bisacodyL 5 MG TABLET.DR 10 MG PO (20:35)
[2024-02-21] MEDS: QUEtiapine Fumarate 25 MG TABLET PO (20:36)
[2024-02-22 08:28] VITALS: BP 104/58; PULSE 63; RESP 17; TEMP 36.6; O2SAT 99
[2024-02-22] MEDS: Valsartan 160 MG TABLET PO (08:45)
[2024-02-22] MEDS: Escitalopram Oxalate 5 MG TABLET 15 MG PO (08:46)
[2024-02-22] MEDS: cloNIDine HCL 0.1 MG TABLET PO ×2 (08:46→21:17)
[2024-02-22] MEDS: Furosemide 20 MG TABLET PO (08:46)
--- NOTE | 2024-02-22 08:48 | HO.PSYCHPN ---
Subjective Subjective Date of Service: 02/22/24 Reason For Visit: Catatonia Subjective Notes: Conditional Voluntary Interim History: Pt slept most of the night. He presents with much brighter affect today. He reports ECT has helped him greatly in the sense that he can smile more often. He reports mood less hopeless and he is looking forward to going to [facility]. He denies SI/HI. Plan is to d/c next week to [facility], with one more ECT next week on Saturday not Saturday. Review of Systems Review of Systems Patient has no acute medical complaints at this time. Yes all other systems are reviewed and are negative Constitutional: Denies body ache(s), Denies chills, Denies fever(s) and Denies headache(s) Eyes: Denies change in vision and Denies loss of vision Denies headache(s) Cardiovascular: Denies chest pain, Denies rapid heart rate, Denies leg edema (only bilateral feet), Denies lightheadedness and Denies dyspnea Respiratory: Denies cough and Denies dyspnea Gastrointestinal: Denies nausea and Denies vomiting Musculoskeletal: Reports tingling (bilateral feet) Skin/Breast: Denies rash Denies headache(s), Denies loss of vision, Denies convulsions and Reports tingling (bilateral feet) Mental Status Exam Mental Status Exam Narrative: Pt is alert and oriented; behavior is cooperative, friendly, calm; patient is not in distress; dressed in casual attire with adequate hygiene; mood is described as good and affect congruent, brighter, naturally expressive; eye contact appropriate; Speech is normal rate, volume, prosody; no psychomotor retardation present; thought process is organized and goal directed; Thought content is on treatment; otherwise pertinent to relevant topics and without any delusional content, paranoid ideations or grandiosity; denies any SI/HI. No AVH. Patients insight and judgment fair Diagnostics Vital Signs (24Hr): Vital Signs - 24 hr 02/21/24 20:00 02/22/24 08:28 Temperature 98.1 F 97.8 F Pulse Rate 60 63 Respiratory Rate 18 17 Blood Pressure 140/73 H 104/58 L Pulse Oximetry 98 99 Oxygen Delivery Method Room Air Room Air BMI result Body Mass Index 21.5 Labs 02/19/24 11:40 Imaging Radiology Impressions: ITS Impressions Head CT 02/06/24 10:14 IMPRESSION: No acute fracture, bony calvarium. No acute intracranial hemorrhage. Electronically signed by: Jevon Mcmahon MD 02/06/2024 10:49 AM EDT Medications Medications Current Medications Acetaminophen (Acetaminophen 325 Mg Tablet) 650 mg PO Q6H PRN PRN Reason: Headache/Pain Mild Scale (1-3) Last Admin: 02/20/24 08:17 Dose: 650 mg Al Hydroxide/Mg Hydroxide (Magnesium Hydrox/Alum Hydrox 30 Ml Oral.Susp) 30 ml PO Q6H PRN PRN Reason: Heartburn/Nausea Bisacodyl (Bisacodyl 5 Mg Tablet.Dr) 10 mg PO BEDTIME CALLIE Last Admin: 02/21/24 20:35 Dose: 5 mg Clonidine HCl (Clonidine Hcl 0.1 Mg Tablet) 0.1 mg PO BID CALLIE; Protocol Last Admin: 02/22/24 08:46 Dose: 0.1 mg Escitalopram Oxalate (Escitalopram Oxalate 5 Mg Tablet) 15 mg PO DAILY CALLIE Last Admin: 02/22/24 08:46 Dose: 15 mg Furosemide (Furosemide 20 Mg Tablet) 20 mg PO DAILY CALLIE; Protocol Last Admin: 02/22/24 08:46 Dose: 20 mg Hydroxyzine HCl (Hydroxyzine Hcl 25 Mg Tablet) 25 mg PO Q6H PRN PRN Reason: Anxiety Lactated Ringer's (Lr) 1,000 mls @ 100 mls/hr IVCONT .Q10H CALLIE Last Admin: 02/22/24 03:08 Dose: Not Given Lorazepam (Lorazepam 0.5 Mg Tablet) 0.5 mg PO DAILY PRN PRN Reason: anxiety Magnesium Hydroxide (Milk Of Magnesia 30 Ml Oral.Susp) 30 ml PO DAILY PRN PRN Reason: Constipation Naloxone HCl (Naloxone Hcl 0.4 Mg/Ml Vial) 0.04 mg IVPUSH Q5M PRN PRN Reason: Excessive sedation or RR < 8 Naloxone HCl (Naloxone Hcl 0.4 Mg/Ml Vial) 0.04 mg IVPUSH Q5M PRN PRN Reason: Excessive sedation or RR < 8 Naloxone HCl (Naloxone Hcl 0.4 Mg/Ml Vial) 0.04 mg IVPUSH Q5M PRN PRN Reason: Excessive sedation or RR < 8 Nicotine Polacrilex (Nicotine Polacrilex 2 Mg Gum) 4 mg BUCCAL Q2H PRN PRN Reason: Nicotine Cravings Ondansetron HCl (Ondansetron Odt 4 Mg Tab.Rapdis) 4 mg TRANSLINGU Q8H PRN PRN Reason: Nausea and Vomiting Last Admin: 02/19/24 20:37 Dose: 4 mg Polyethylene Glycol (Polyethylene Glycol 3350 17 Gm Powd.Pack) 17 gm PO DAILY PRN PRN Reason: Constipation Last Admin: 02/21/24 08:36 Dose: 17 gm Quetiapine Fumarate (Quetiapine Fumarate 25 Mg Tablet) 25 mg PO BEDTIME CALLIE Last Admin: 02/21/24 20:36 Dose: 25 mg Trazodone HCl (Trazodone Hcl 50 Mg Tablet) 50 mg PO BEDTIME MRX1 PRN PRN Reason: Insomnia Last Admin: 02/10/24 20:02 Dose: 50 mg Valsartan (Valsartan 160 Mg Tablet) 160 mg PO DAILY CALLIE; Protocol Last Admin: 02/22/24 08:45 Dose: 160 mg Allergies Allergies Allergy/AdvReac Type Severity Reaction Status Date / Time No Known Allergies Allergy Verified 01/31/24 19:31 Assessment & Plan Assessment & Plan (1) Major depressive disorder: Status: Acute Code(s): F32.9 - Major depressive disorder, single episode, unspecified Plan Patient is a 68-year-old male with a past medical history significant for hypertension and history of catatonia, consulted for bilateral lower extremity edema and left upper extremity edema. edema - no dx of CHF, but chronic in nature per pt - echo - start lasix 20mg QD - monitor edema - encourage leg elevation - BNP elevated at 228, no baseline to compare - ok to proceed with ECT today, hold IV fluids, provider notified Plan 02/19 continue tx. one more ECT next week. plan also to taper off seroquel. 02/20 continue tx 02/21 continue tx. dc seroquel Reason for continued inpatient stay Substantial Risk for: inability to function Time Spent With Patient Time: Total time managing care of this patient today ____ minutes.
[2024-02-22 20:00] VITALS: BP 128/76; PULSE 61; RESP 18; TEMP 36.6; O2SAT 97
[2024-02-22] MEDS: QUEtiapine Fumarate 25 MG TABLET PO (21:17)
[2024-02-23 08:49] VITALS: BP 130/60; PULSE 67; RESP 17; TEMP 36.3; O2SAT 99
[2024-02-23] MEDS: Escitalopram Oxalate 5 MG TABLET 15 MG PO (08:50)
[2024-02-23] MEDS: cloNIDine HCL 0.1 MG TABLET PO ×2 (08:51→20:05)
[2024-02-23] MEDS: Furosemide 20 MG TABLET PO (08:51)
[2024-02-23] MEDS: Valsartan 160 MG TABLET PO (08:51)
--- NOTE | 2024-02-23 19:58 | HO.PSYCHPN ---
Subjective Subjective Date of Service: 02/23/24 Reason For Visit: Catatonia Subjective Notes: Conditional Voluntary Interim History: Pt slept most of the night. He presents with much brighter affect today. He reports ECT has helped him greatly in the sense that he can smile more often. He reports mood less hopeless and he is looking forward to going to [facility]. He denies SI/HI. Plan is to d/c next week to [facility], with one more ECT next week on Saturday not Saturday. Review of Systems Review of Systems Patient has no acute medical complaints at this time. Yes all other systems are reviewed and are negative Constitutional: Denies body ache(s), Denies chills, Denies fever(s) and Denies headache(s) Eyes: Denies change in vision and Denies loss of vision Denies headache(s) Cardiovascular: Denies chest pain, Denies rapid heart rate, Denies leg edema (only bilateral feet), Denies lightheadedness and Denies dyspnea Respiratory: Denies cough and Denies dyspnea Gastrointestinal: Denies nausea and Denies vomiting Musculoskeletal: Reports tingling (bilateral feet) Skin/Breast: Denies rash Denies headache(s), Denies loss of vision, Denies convulsions and Reports tingling (bilateral feet) Mental Status Exam Mental Status Exam Narrative: Pt is alert and oriented; behavior is cooperative, friendly, calm; patient is not in distress; dressed in casual attire with adequate hygiene; mood is described as good and affect congruent, brighter, naturally expressive; eye contact appropriate; Speech is normal rate, volume, prosody; no psychomotor retardation present; thought process is organized and goal directed; Thought content is on treatment; otherwise pertinent to relevant topics and without any delusional content, paranoid ideations or grandiosity; denies any SI/HI. No AVH. Patients insight and judgment fair Diagnostics Vital Signs (24Hr): Vital Signs - 24 hr 02/22/24 20:00 02/23/24 08:49 Temperature 97.8 F 97.4 F Pulse Rate 61 67 Respiratory Rate 18 17 Blood Pressure 128/76 130/60 Pulse Oximetry 97 99 Oxygen Delivery Method Room Air Room Air BMI result Body Mass Index 21.5 Labs 02/19/24 11:40 Imaging Radiology Impressions: ITS Impressions Head CT 02/06/24 10:14 IMPRESSION: No acute fracture, bony calvarium. No acute intracranial hemorrhage. Electronically signed by: Jevon Mcmahon MD 02/06/2024 10:49 AM EDT Medications Medications Current Medications Acetaminophen (Acetaminophen 325 Mg Tablet) 650 mg PO Q6H PRN PRN Reason: Headache/Pain Mild Scale (1-3) Last Admin: 02/20/24 08:17 Dose: 650 mg Al Hydroxide/Mg Hydroxide (Magnesium Hydrox/Alum Hydrox 30 Ml Oral.Susp) 30 ml PO Q6H PRN PRN Reason: Heartburn/Nausea Bisacodyl (Bisacodyl 5 Mg Tablet.Dr) 10 mg PO BEDTIME CALLIE Last Admin: 02/22/24 21:17 Dose: Not Given Clonidine HCl (Clonidine Hcl 0.1 Mg Tablet) 0.1 mg PO BID CALLIE; Protocol Last Admin: 02/23/24 08:51 Dose: 0.1 mg Escitalopram Oxalate (Escitalopram Oxalate 5 Mg Tablet) 15 mg PO DAILY CALLIE Last Admin: 02/23/24 08:50 Dose: 15 mg Furosemide (Furosemide 20 Mg Tablet) 20 mg PO DAILY CALLIE; Protocol Last Admin: 02/23/24 08:51 Dose: 20 mg Hydroxyzine HCl (Hydroxyzine Hcl 25 Mg Tablet) 25 mg PO Q6H PRN PRN Reason: Anxiety Lorazepam (Lorazepam 0.5 Mg Tablet) 0.5 mg PO DAILY PRN PRN Reason: anxiety Magnesium Hydroxide (Milk Of Magnesia 30 Ml Oral.Susp) 30 ml PO DAILY PRN PRN Reason: Constipation Naloxone HCl (Naloxone Hcl 0.4 Mg/Ml Vial) 0.04 mg IVPUSH Q5M PRN PRN Reason: Excessive sedation or RR < 8 Naloxone HCl (Naloxone Hcl 0.4 Mg/Ml Vial) 0.04 mg IVPUSH Q5M PRN PRN Reason: Excessive sedation or RR < 8 Naloxone HCl (Naloxone Hcl 0.4 Mg/Ml Vial) 0.04 mg IVPUSH Q5M PRN PRN Reason: Excessive sedation or RR < 8 Nicotine Polacrilex (Nicotine Polacrilex 2 Mg Gum) 4 mg BUCCAL Q2H PRN PRN Reason: Nicotine Cravings Ondansetron HCl (Ondansetron Odt 4 Mg Tab.Rapdis) 4 mg TRANSLINGU Q8H PRN PRN Reason: Nausea and Vomiting Last Admin: 02/19/24 20:37 Dose: 4 mg Polyethylene Glycol (Polyethylene Glycol 3350 17 Gm Powd.Pack) 17 gm PO DAILY PRN PRN Reason: Constipation Last Admin: 02/21/24 08:36 Dose: 17 gm Trazodone HCl (Trazodone Hcl 50 Mg Tablet) 50 mg PO BEDTIME MRX1 PRN PRN Reason: Insomnia Last Admin: 02/10/24 20:02 Dose: 50 mg Valsartan (Valsartan 160 Mg Tablet) 160 mg PO DAILY CALLIE; Protocol Last Admin: 02/23/24 08:51 Dose: 160 mg Allergies Allergies Allergy/AdvReac Type Severity Reaction Status Date / Time No Known Allergies Allergy Verified 01/31/24 19:31 Assessment & Plan Assessment & Plan (1) Major depressive disorder: Status: Acute Code(s): F32.9 - Major depressive disorder, single episode, unspecified Plan Patient is a 68-year-old male with a past medical history significant for hypertension and history of catatonia, consulted for bilateral lower extremity edema and left upper extremity edema. edema - no dx of CHF, but chronic in nature per pt - echo - start lasix 20mg QD - monitor edema - encourage leg elevation - BNP elevated at 228, no baseline to compare - ok to proceed with ECT today, hold IV fluids, provider notified Plan 02/19 continue tx. one more ECT next week. plan also to taper off seroquel. 02/20 continue tx. 02/21 dc seroquel 02/22 continue tx. one more ect prior to dc on 02/23 Reason for continued inpatient stay Substantial Risk for: inability to function Time Spent With Patient Time: Total time managing care of this patient today ____ minutes.
[2024-02-23 20:00] VITALS: BP 141/73; PULSE 50; RESP 14; TEMP 37; O2SAT 99
[2024-02-23 20:05] VITALS: BP 141/73
[2024-02-24] VITALS (10 sets, daily range): BP systolic 115–171; BP diastolic 66–85; PULSE 50–61; RESP 12–18; TEMP 36–36.7; O2SAT 92–100; BMI 21.5
--- NOTE | 2024-02-24 06:44 | P.CONAN_ITS ---
[facility] Active Problems Active Problems: All Active Problems Edema of both feet (Acute) Preoperative clearance (Acute) Major depressive disorder (Acute) Medical clearance for psychiatric admission (Acute) Catatonia (Acute) Frontotemporal dementia (Acute) Past Medical History Medical History HTN (hypertension) Functional capacity: independent ambulation Family History Family history of problems with anesthesia: No Surgical History History of Problems with Anesthesia: No Social History Social History Household Members: Other Household Members Other:: lives w/ his brother according to the pt. Housing: House Do you presently have visiting nurse or other home services: No Patient Tobacco Use Status: Never used Tobacco Smoked in Last 30 Days: No e-Cigarette/Vaping Use: Never Used Patient Interested in Nicotine Replacement: No (Pt said he never smoke.) Patient Given Instructions on How to Stop Smoking: No Second Hand Smoke Exposure: No Use of substances other than those prescribed or required for medical reasons: No Currently Displaying Signs/Symptoms of Drug Intoxication Withdrawal: No Have you been hit, kicked, punched, or otherwise hurt by someone within the past year? If so, by whom?: No Do you feel safe in your current relationship?: No Current Relationship Is there a partner from a previous relationship who is making you feel unsafe now?: No Are you made to feel afraid or neglected: No Advance Directives: No Advance Directives Information Provided: Yes Do you have thoughts of harming others: None Do you have a plan to hurt others: No Plan Recently lost weight without trying: No How much weight loss: Not applicable Eating poorly because of decreased appetite: No Nutrition screen score: 0 Poor oral hygiene: No service: No Sexual orientation: Straight/Heterosexual Meds Allergies Allergy/AdvReac Type Severity Reaction Status Date / Time No Known Allergies Allergy Verified 01/31/24 19:31 Active Medications: Current Medications Acetaminophen (Acetaminophen 325 Mg Tablet) 650 mg PO Q6H PRN PRN Reason: Headache/Pain Mild Scale (1-3) Last Admin: 02/20/24 08:17 Dose: 650 mg Al Hydroxide/Mg Hydroxide (Magnesium Hydrox/Alum Hydrox 30 Ml Oral.Susp) 30 ml PO Q6H PRN PRN Reason: Heartburn/Nausea Bisacodyl (Bisacodyl 5 Mg Tablet.Dr) 10 mg PO BEDTIME CALLIE Last Admin: 02/23/24 20:06 Dose: Not Given Clonidine HCl (Clonidine Hcl 0.1 Mg Tablet) 0.1 mg PO BID [facility]; Protocol Last Admin: 02/23/24 20:05 Dose: 0.1 mg Escitalopram Oxalate (Escitalopram Oxalate 5 Mg Tablet) 15 mg PO DAILY [facility] Last Admin: 02/23/24 08:50 Dose: 15 mg Furosemide (Furosemide 20 Mg Tablet) 20 mg PO DAILY [facility]; Protocol Last Admin: 02/23/24 08:51 Dose: 20 mg Hydroxyzine HCl (Hydroxyzine Hcl 25 Mg Tablet) 25 mg PO Q6H PRN PRN Reason: Anxiety Lorazepam (Lorazepam 0.5 Mg Tablet) 0.5 mg PO DAILY PRN PRN Reason: anxiety Magnesium Hydroxide (Milk Of Magnesia 30 Ml Oral.Susp) 30 ml PO DAILY PRN PRN Reason: Constipation Naloxone HCl (Naloxone Hcl 0.4 Mg/Ml Vial) 0.04 mg IVPUSH Q5M PRN PRN Reason: Excessive sedation or RR < 8 Naloxone HCl (Naloxone Hcl 0.4 Mg/Ml Vial) 0.04 mg IVPUSH Q5M PRN PRN Reason: Excessive sedation or RR < 8 Naloxone HCl (Naloxone Hcl 0.4 Mg/Ml Vial) 0.04 mg IVPUSH Q5M PRN PRN Reason: Excessive sedation or RR < 8 Nicotine Polacrilex (Nicotine Polacrilex 2 Mg Gum) 4 mg BUCCAL Q2H PRN PRN Reason: Nicotine Cravings Ondansetron HCl (Ondansetron Odt 4 Mg Tab.Rapdis) 4 mg TRANSLINGU Q8H PRN PRN Reason: Nausea and Vomiting Last Admin: 02/19/24 20:37 Dose: 4 mg Polyethylene Glycol (Polyethylene Glycol 3350 17 Gm Powd.Pack) 17 gm PO DAILY PRN PRN Reason: Constipation Last Admin: 02/21/24 08:36 Dose: 17 gm Trazodone HCl (Trazodone Hcl 50 Mg Tablet) 50 mg PO BEDTIME MRX1 PRN PRN Reason: Insomnia Last Admin: 02/10/24 20:02 Dose: 50 mg Valsartan (Valsartan 160 Mg Tablet) 160 mg PO DAILY [facility]; Protocol Last Admin: 02/23/24 08:51 Dose: 160 mg Home Medications ?Medication ?Instructions ?Recorded ?Confirmed ?Last Taken ?Type bisacodyl 5 mg tablet,delayed 10 mg PO BEDTIME 01/31/24 01/31/24 01/30/24 21:00 History release clonidine HCl 0.1 mg tablet 0.1 mg PO BID 01/31/24 01/31/24 Unknown History escitalopram oxalate 5 mg tablet 15 mg PO DAILY 01/31/24 01/31/24 Unknown History lorazepam 1 mg tablet (Ativan) 1 mg PO TID 01/31/24 01/31/24 Unknown History polyethylene glycol 3350 17 gram 17 g PO DAILY PRN Constipation 01/31/24 01/31/24 01/29/24 20:00 History oral powder packet quetiapine 150 mg tablet 150 mg PO BEDTIME 01/31/24 01/31/24 Unknown History valsartan 160 mg tablet 160 mg PO DAILY 01/31/24 01/31/24 Unknown History Exam Height,Weight and Vital Signs: Height 6 ft Weight 71.849 kg Last Vital Signs Temp 97.3 F 02/24/24 06:38 Pulse 50 02/24/24 06:38 Resp 16 02/24/24 06:38 BP 148/78 H 02/24/24 06:38 Pulse Ox 99 02/24/24 06:38 O2 Del Method Room Air 02/24/24 06:38 O2 Flow Rate 2 02/19/24 15:05 Pertinent Lab Results Pertinent Lab Results: Laboratory Tests 02/01/24 02/19/24 07:03 11:40 Sodium 144 Potassium 4.8 Chloride 106 Carbon Dioxide 33 H Anion Gap 10 L BUN 15 Creatinine 0.72 Estim Creat Clear Calc 100.1 Estimated GFR > 60 Random Glucose 84 Estimat Average Glucose 94 Hemoglobin A1c % 4.9 Calcium 8.7 Magnesium 1.9 B-Natriuretic Peptide 228 H Triglycerides 60 Cholesterol 213 H LDL Cholesterol, Calc 120 H HDL Cholesterol 81 Vitamin B12 1141 H Folate 9.1 TSH 3.50 Free T4 1.00 Airway Mallampati Class: II (cap laterally) TM Dist: >3cm Neck ROM: Full Heart: rrr Lungs: cta Assessment and Plan Assessment Anesthesia Assessment: Anesthesia Plan Discussed and Chart Reviewed Final Anesthetic Review Family History of Problems with Anesthesia: No History of Problems with Anesthesia: No NPO: Yes ASA Class: III Final Preanesthetic Review: No Changes in Pt Med Stat, Meds/Allgs Chart Reviewed and Consent Obtained/Reviewed Patient Risk: Intermediate Procedure Risk: Intermediate Anesthetic Plan Anesthetic Plan: GA Disposition: Standard PACU
[2024-02-24] MEDS: Lactated Ringers 1,000 ML 50 ML IVCONT (06:50)
--- NOTE | 2024-02-24 07:02 | MHC.SHP ---
Pre-Procedural Eval Section A - 24 Hr Update-Section A only Date of Service: 02/24/24 The patient is an INPATIENT: Yes Changes since office visit: No Cold of Flu in the past 2 weeks, No New Medical Problems, No Changes in Medication and No Patient answered all questions The patient has been examined within 24 hours of the surgical procedure. The History & Physical has been completed within 30 days and I have reviewed it.: Yes Section B - Complete if H&P > 30 days Chief Complaint: Catatonia Allergies: Allergies Allergy/AdvReac Type Severity Reaction Status Date / Time No Known Allergies Allergy Verified 01/31/24 19:31 Plan I have reviewed the history and physical and performed a pertinent physical examination on my patient. No changes have occurred unless specified. Time Spent With Patient Time: Total time managing care of this patient today ____ minutes.
--- NOTE | 2024-02-24 07:37 | HO.ECTPROC ---
ECT Procedure Note Diagnosis/Treatment Date of Service: 02/24/24 Diagnosis: Major Depressive Disorder Interval Clinical Notes: The patient reported improvment of depression, no side effects with the last ECT besides mild nausea that resolved with Zofran. ECT done as usual, I lowered stimuli since his last seizure was very long. Again, seizure was long 71s that resolved by itself. Woke up well, no complications. Time: Total time managing care of this patient today __30__ minutes. ECT Settings Device: THYMATRON DGx Electrode Placement: Bifrontal Program/Pulse Width: 0.25 Energy Percent: 50 Seizure Duration By EEG (in seconds): 71 By Motor Observation (in seconds): 45 Medications Administration General Anesthetic: Etomidate (10) Muscle Relaxant: Succinylcholine (80) Ancillary Medications Miscillaneous Medications: Propofol Airway Management Airway Management: Bag Mask Ventilation Treatment Recommendations Electrode Placement: Bifrontal Program/Pulse Width: 0.25 Energy Percent: 40 Notes: Probably, we could lower the stimuli more since he had a very long seizure with 50% stimuli. Pt Tolerated Procedure w/o Issue: Yes
[2024-02-24] MEDS: Valsartan 160 MG TABLET PO (08:52)
[2024-02-24] MEDS: cloNIDine HCL 0.1 MG TABLET PO ×2 (08:52→20:16)
[2024-02-24] MEDS: Furosemide 20 MG TABLET PO (08:52)
[2024-02-24] MEDS: Escitalopram Oxalate 5 MG TABLET 15 MG PO (08:52)
--- NOTE | 2024-02-24 16:57 | P.PNPSI_ITS ---
Subjective Subjective Date of Service: 02/24/24 Reason For Visit: Catatonia Interim History: Met with patient; discussed with team Patient had ECT today. Denies any side effects. Continues to feel that he is doing well. Feels fine off of Seroquel and sleeping well. Working on discharge planning Mental Status Exam Mental Status Exam Narrative: Pt is alert and oriented; behavior is cooperative, friendly, calm; patient is not in distress; dressed in casual attire with adequate hygiene; mood is described as good and affect congruent, brighter, naturally expressive; eye contact appropriate; Speech is normal rate, volume, prosody; no psychomotor retardation present; thought process is organized and goal directed; Thought content is on treatment; otherwise pertinent to relevant topics and without any delusional content, paranoid ideations or grandiosity; denies any SI/HI. No AVH. Patients insight and judgment fair Diagnostics Vital Signs (24Hr): Vital Signs - 24 hr 02/23/24 20:00 02/23/24 20:05 02/24/24 05:41 Temperature 98.6 F 96.8 F Pulse Rate 50 59 Respiratory Rate 14 16 Blood Pressure 141/73 H 141/73 H 171/83 H Pulse Oximetry 99 100 Oxygen Delivery Method Room Air Oxygen Flow Rate 02/24/24 06:38 02/24/24 07:48 02/24/24 07:53 Temperature 97.3 F 97 F Pulse Rate 50 51 60 Respiratory Rate 16 12 12 Blood Pressure 148/78 H 115/66 132/73 Pulse Oximetry 99 95 95 Oxygen Delivery Method Room Air Nasal Cannula Nasal Cannula Oxygen Flow Rate 2 2 02/24/24 08:02 02/24/24 08:03 02/24/24 08:18 Temperature 97 F Pulse Rate 61 61 55 Respiratory Rate 12 12 16 Blood Pressure 140/82 H 127/70 127/70 Pulse Oximetry 95 95 97 Oxygen Delivery Method Nasal Cannula Nasal Cannula Room Air Oxygen Flow Rate 2 2 02/24/24 08:46 02/24/24 08:47 Temperature 98.1 F 98.1 F Pulse Rate 61 61 Respiratory Rate 18 16 Blood Pressure 151/85 H 151/85 H Pulse Oximetry 92 Oxygen Delivery Method Room Air Oxygen Flow Rate BMI result Body Mass Index 21.5 Labs 02/19/24 11:40 Imaging Radiology Impressions: ITS Impressions Head CT 02/06/24 10:14 IMPRESSION: No acute fracture, bony calvarium. No acute intracranial hemorrhage. Electronically signed by: Jevon Mcmahon MD 02/06/2024 10:49 AM EDT Medications Medications Current Medications Acetaminophen (Acetaminophen 325 Mg Tablet) 650 mg PO Q6H PRN PRN Reason: Headache/Pain Mild Scale (1-3) Last Admin: 02/20/24 08:17 Dose: 650 mg Al Hydroxide/Mg Hydroxide (Magnesium Hydrox/Alum Hydrox 30 Ml Oral.Susp) 30 ml PO Q6H PRN PRN Reason: Heartburn/Nausea Bisacodyl (Bisacodyl 5 Mg Tablet.Dr) 10 mg PO BEDTIME [facility] Last Admin: 02/23/24 20:06 Dose: Not Given Clonidine HCl (Clonidine Hcl 0.1 Mg Tablet) 0.1 mg PO BID [facility]; Protocol Last Admin: 02/24/24 08:52 Dose: 0.1 mg Escitalopram Oxalate (Escitalopram Oxalate 5 Mg Tablet) 15 mg PO DAILY [facility] Last Admin: 02/24/24 08:52 Dose: 15 mg Furosemide (Furosemide 20 Mg Tablet) 20 mg PO DAILY [facility]; Protocol Last Admin: 02/24/24 08:52 Dose: 20 mg Hydroxyzine HCl (Hydroxyzine Hcl 25 Mg Tablet) 25 mg PO Q6H PRN PRN Reason: Anxiety Lorazepam (Lorazepam 0.5 Mg Tablet) 0.5 mg PO DAILY PRN PRN Reason: anxiety Magnesium Hydroxide (Milk Of Magnesia 30 Ml Oral.Susp) 30 ml PO DAILY PRN PRN Reason: Constipation Nicotine Polacrilex (Nicotine Polacrilex 2 Mg Gum) 4 mg BUCCAL Q2H PRN PRN Reason: Nicotine Cravings Ondansetron HCl (Ondansetron Odt 4 Mg Tab.Rapdis) 4 mg TRANSLINGU Q8H PRN PRN Reason: Nausea and Vomiting Last Admin: 02/19/24 20:37 Dose: 4 mg Polyethylene Glycol (Polyethylene Glycol 3350 17 Gm Powd.Pack) 17 gm PO DAILY PRN PRN Reason: Constipation Last Admin: 02/21/24 08:36 Dose: 17 gm Trazodone HCl (Trazodone Hcl 50 Mg Tablet) 50 mg PO BEDTIME MRX1 PRN PRN Reason: Insomnia Last Admin: 02/10/24 20:02 Dose: 50 mg Valsartan (Valsartan 160 Mg Tablet) 160 mg PO DAILY [facility]; Protocol Last Admin: 02/24/24 08:52 Dose: 160 mg Allergies Allergies Allergy/AdvReac Type Severity Reaction Status Date / Time No Known Allergies Allergy Verified 01/31/24 19:31 Assessment & Plan Assessment & Plan (1) Major depressive disorder: Status: Acute Code(s): F32.9 - Major depressive disorder, single episode, unspecified Plan Patient is a 68-year-old male with a past medical history significant for hypertension and history of catatonia, consulted for bilateral lower extremity edema and left upper extremity edema. edema - no dx of CHF, but chronic in nature per pt - echo - start lasix 20mg QD - monitor edema - encourage leg elevation - BNP elevated at 228, no baseline to compare - ok to proceed with ECT today, hold IV fluids, provider notified Plan 02/19 continue tx. one more ECT next week. plan also to taper off seroquel. 02/20 continue tx. 02/21 dc seroquel 02/22 continue tx. one more ect prior to dc on 02/23 02/23 Patient had ECT today. Denies any side effects. Continues to feel that he is doing well. Feels fine off of Seroquel and sleeping well. Working on discharge planning Patient educated on: diagnosis, medication risk/benefits and ECT Informed Consent: understands Reason for continued inpatient stay Substantial Risk for: stable for discharge Time Spent With Patient Time: Total time managing care of this patient today ____ minutes.
[2024-02-24] MEDS: Acetaminophen 325 MG TABLET 650 MG PO (20:16)
[2024-02-24] MEDS: bisacodyL 5 MG TABLET.DR 10 MG PO (20:16)
[2024-02-24] MEDS: Ondansetron ODT 4 MG TAB.RAPDIS TRANSLINGU (20:16)
[2024-02-24] MEDS: Ibuprofen 800 MG TABLET PO (21:57)
[2024-02-24] MEDS: Acetaminophen 325 MG TABLET PO (21:57)
[2024-02-25 08:30] VITALS: BP 137/75; PULSE 51; RESP 16; TEMP 36.5; O2SAT 100
[2024-02-25] MEDS: Escitalopram Oxalate 5 MG TABLET 15 MG PO (08:38)
[2024-02-25] MEDS: Valsartan 160 MG TABLET PO (08:39)
[2024-02-25] MEDS: Furosemide 20 MG TABLET PO (08:39)
[2024-02-25] MEDS: cloNIDine HCL 0.1 MG TABLET PO ×2 (08:39→20:48)
[2024-02-25] MEDS: polyethylene glycoL 3350 17 GM POWD.PACK PO (09:01)
--- NOTE | 2024-02-25 12:26 | HO.POSTANES ---
Post Anesthesia Evaluation Post Anesthesia Evaluation Date of Service: 02/25/24 Vital Signs: Vital Signs Temp Pulse Resp BP Pulse Ox O2 Del Method 02/25/24 08:30 97.7 F 51 16 137/75 100 Room Air Anesthesia: General Mental Status: Awake Pain Control: Satisfactory Nausea/Vomiting: None Hydration: Adequate Anesthesia-Related Issues: No Anes. Related Issues
[2024-02-25 20:00] VITALS: BP 141/69; PULSE 60; RESP 16; TEMP 36.6; O2SAT 99
[2024-02-25] MEDS: bisacodyL 5 MG TABLET.DR 10 MG PO (20:48)
--- NOTE | 2024-02-25 22:59 | P.PNPSI_ITS ---
Subjective Subjective Date of Service: 02/25/24 Reason For Visit: Catatonia Interim History: Met with patient; discussed with team Patient continues to report that he is doing well. Has no complaints and no requests. Anticipating discharge later this week Mental Status Exam Mental Status Exam Narrative: Pt is alert and oriented; behavior is cooperative, friendly, calm; patient is not in distress; dressed in casual attire with adequate hygiene; mood is described as good and affect congruent, bright, naturally expressive; eye contact appropriate; Speech is normal rate, volume, prosody; no psychomotor retardation present; thought process is organized and goal directed; Thought content is on treatment; otherwise pertinent to relevant topics and without any delusional content, paranoid ideations or grandiosity; denies any SI/HI. No AVH. Patients insight and judgment fair Diagnostics Vital Signs (24Hr): Vital Signs - 24 hr 02/25/24 08:30 02/25/24 20:00 Temperature 97.7 F 97.8 F Pulse Rate 51 60 Respiratory Rate 16 16 Blood Pressure 137/75 141/69 H Pulse Oximetry 100 99 Oxygen Delivery Method Room Air Room Air BMI result Body Mass Index 21.5 Labs 02/19/24 11:40 Imaging Radiology Impressions: ITS Impressions Head CT 02/06/24 10:14 IMPRESSION: No acute fracture, bony calvarium. No acute intracranial hemorrhage. Electronically signed by: Jevon Mcmahon MD 02/06/2024 10:49 AM EDT Medications Medications Current Medications Acetaminophen (Acetaminophen 325 Mg Tablet) 650 mg PO Q6H PRN PRN Reason: Headache/Pain Mild Scale (1-3) Last Admin: 02/24/24 20:16 Dose: 650 mg Al Hydroxide/Mg Hydroxide (Magnesium Hydrox/Alum Hydrox 30 Ml Oral.Susp) 30 ml PO Q6H PRN PRN Reason: Heartburn/Nausea Bisacodyl (Bisacodyl 5 Mg Tablet.Dr) 10 mg PO BEDTIME [facility] Last Admin: 02/25/24 20:48 Dose: 10 mg Clonidine HCl (Clonidine Hcl 0.1 Mg Tablet) 0.1 mg PO BID [facility]; Protocol Last Admin: 02/25/24 20:48 Dose: 0.1 mg Escitalopram Oxalate (Escitalopram Oxalate 5 Mg Tablet) 15 mg PO DAILY [facility] Last Admin: 11/12/24 08:38 Dose: 15 mg Furosemide (Furosemide 20 Mg Tablet) 20 mg PO DAILY [facility]; Protocol Last Admin: 02/25/24 08:39 Dose: 20 mg Hydroxyzine HCl (Hydroxyzine Hcl 25 Mg Tablet) 25 mg PO Q6H PRN PRN Reason: Anxiety Lorazepam (Lorazepam 0.5 Mg Tablet) 0.5 mg PO DAILY PRN PRN Reason: anxiety Magnesium Hydroxide (Milk Of Magnesia 30 Ml Oral.Susp) 30 ml PO DAILY PRN PRN Reason: Constipation Nicotine Polacrilex (Nicotine Polacrilex 2 Mg Gum) 4 mg BUCCAL Q2H PRN PRN Reason: Nicotine Cravings Ondansetron HCl (Ondansetron Odt 4 Mg Tab.Rapdis) 4 mg TRANSLINGU Q8H PRN PRN Reason: Nausea and Vomiting Last Admin: 02/24/24 20:16 Dose: 4 mg Polyethylene Glycol (Polyethylene Glycol 3350 17 Gm Powd.Pack) 17 gm PO DAILY PRN PRN Reason: Constipation Last Admin: 02/25/24 09:01 Dose: 17 gm Trazodone HCl (Trazodone Hcl 50 Mg Tablet) 50 mg PO BEDTIME MRX1 PRN PRN Reason: Insomnia Last Admin: 02/10/24 20:02 Dose: 50 mg Valsartan (Valsartan 160 Mg Tablet) 160 mg PO DAILY [facility]; Protocol Last Admin: 02/25/24 08:39 Dose: 160 mg Allergies Allergies Allergy/AdvReac Type Severity Reaction Status Date / Time No Known Allergies Allergy Verified 01/31/24 19:31 Assessment & Plan Assessment & Plan (1) Major depressive disorder: Status: Acute Code(s): F32.9 - Major depressive disorder, single episode, unspecified Plan Patient is a 68-year-old male with a past medical history significant for hypertension and history of catatonia, consulted for bilateral lower extremity edema and left upper extremity edema. edema - no dx of CHF, but chronic in nature per pt - echo - start lasix 20mg QD - monitor edema - encourage leg elevation - BNP elevated at 228, no baseline to compare - ok to proceed with ECT today, hold IV fluids, provider notified Plan 02/19 continue tx. one more ECT next week. plan also to taper off seroquel. 02/20 continue tx. 02/21 dc seroquel 02/22 continue tx. one more ect prior to dc on 02/23 02/23 Patient had ECT today. Denies any side effects. Continues to feel that he is doing well. Feels fine off of Seroquel and sleeping well. Working on discharge planning Patient educated on: diagnosis Informed Consent: understands Reason for continued inpatient stay Substantial Risk for: stable for discharge Time Spent With Patient Time: Total time managing care of this patient today ____ minutes.
[2024-02-26 08:24] VITALS: BP 135/71; PULSE 65; RESP 17; TEMP 36.6; O2SAT 99
[2024-02-26] MEDS: Escitalopram Oxalate 5 MG TABLET 15 MG PO (08:25)
[2024-02-26] MEDS: cloNIDine HCL 0.1 MG TABLET PO ×2 (08:26→20:45)
[2024-02-26] MEDS: Furosemide 20 MG TABLET PO (08:26)
[2024-02-26] MEDS: Valsartan 160 MG TABLET PO (08:26)
--- NOTE | 2024-02-26 14:46 | HO.PSYCHPN ---
Subjective Subjective Date of Service: 02/26/24 Reason For Visit: Catatonia Interim History: Met with patient; discussed with team Remains in good mood. Discussed lower limb edema which commercial real estate underwriter examined and lower limbs mildly edematous; patient asked about Santos stockings with which commercial real estate underwriter agreed and ordered. Patient asked for UA saying he has some lack of awareness when he needs to urinate and will then feel need to get to the bathroom quickly however this has been going on for months, prior to this admission. Diagnostics Vital Signs (24Hr): Vital Signs - 24 hr 02/25/24 20:00 02/26/24 08:24 Temperature 97.8 F 97.9 F Pulse Rate 60 65 Respiratory Rate 16 17 Blood Pressure 141/69 H 135/71 Pulse Oximetry 99 99 Oxygen Delivery Method Room Air Room Air BMI result Body Mass Index 21.5 Labs 02/19/24 11:40 Imaging Radiology Impressions: ITS Impressions Head CT 02/06/24 10:14 IMPRESSION: No acute fracture, bony calvarium. No acute intracranial hemorrhage. Electronically signed by: Jevon Mcmahon MD 02/06/2024 10:49 AM EDT Medications Medications Current Medications Acetaminophen (Acetaminophen 325 Mg Tablet) 650 mg PO Q6H PRN PRN Reason: Headache/Pain Mild Scale (1-3) Last Admin: 02/24/24 20:16 Dose: 650 mg Al Hydroxide/Mg Hydroxide (Magnesium Hydrox/Alum Hydrox 30 Ml Oral.Susp) 30 ml PO Q6H PRN PRN Reason: Heartburn/Nausea Bisacodyl (Bisacodyl 5 Mg Tablet.) 10 mg PO BEDTIME [facility] Last Admin: 02/25/24 20:48 Dose: 10 mg Clonidine HCl (Clonidine Hcl 0.1 Mg Tablet) 0.1 mg PO BID [facility]; Protocol Last Admin: 02/26/24 08:26 Dose: 0.1 mg Escitalopram Oxalate (Escitalopram Oxalate 5 Mg Tablet) 15 mg PO DAILY [facility] Last Admin: 02/26/24 08:25 Dose: 15 mg Furosemide (Furosemide 20 Mg Tablet) 20 mg PO DAILY [facility]; Protocol Last Admin: 02/26/24 08:26 Dose: 20 mg Lorazepam (Lorazepam 0.5 Mg Tablet) 0.5 mg PO DAILY PRN PRN Reason: anxiety Magnesium Hydroxide (Milk Of Magnesia 30 Ml Oral.Susp) 30 ml PO DAILY PRN PRN Reason: Constipation Nicotine Polacrilex (Nicotine Polacrilex 2 Mg Gum) 4 mg BUCCAL Q2H PRN PRN Reason: Nicotine Cravings Ondansetron HCl (Ondansetron Odt 4 Mg Tab.Rapdis) 4 mg TRANSLINGU Q8H PRN PRN Reason: Nausea and Vomiting Last Admin: 02/24/24 20:16 Dose: 4 mg Polyethylene Glycol (Polyethylene Glycol 3350 17 Gm Powd.Pack) 17 gm PO DAILY PRN PRN Reason: Constipation Last Admin: 02/25/24 09:01 Dose: 17 gm Trazodone HCl (Trazodone Hcl 50 Mg Tablet) 50 mg PO BEDTIME MRX1 PRN PRN Reason: Insomnia Last Admin: 02/10/24 20:02 Dose: 50 mg Valsartan (Valsartan 160 Mg Tablet) 160 mg PO DAILY [facility]; Protocol Last Admin: 02/26/24 08:26 Dose: 160 mg Allergies Allergies Allergy/AdvReac Type Severity Reaction Status Date / Time No Known Allergies Allergy Verified 01/31/24 19:31 Assessment & Plan Assessment & Plan (1) Major depressive disorder: Status: Acute Code(s): F32.9 - Major depressive disorder, single episode, unspecified Plan Patient is a 68-year-old male with a past medical history significant for hypertension and history of catatonia, consulted for bilateral lower extremity edema and left upper extremity edema. edema - no dx of CHF, but chronic in nature per pt - echo - start lasix 20mg QD - monitor edema - encourage leg elevation - BNP elevated at 228, no baseline to compare - ok to proceed with ECT today, hold IV fluids, provider notified Plan 02/19 continue tx. one more ECT next week. plan also to taper off seroquel. 02/20 continue tx. 02/21 dc seroquel 02/22 continue tx. one more ect prior to dc on 02/23 02/23 Patient had ECT today. Denies any side effects. Continues to feel that he is doing well. Feels fine off of Seroquel and sleeping well. Working on discharge planning 02/25 Remains in good mood. Discussed lower limb edema which commercial real estate underwriter examined; patient asked about Santos stockings with which commercial real estate underwriter agreed and ordered. Patient asked for UA saying he has some lack of awareness when he needs to urinate and will then feel need to get to the bathroom quickly however this has been going on for months, prior to this admission. -Order Santos hatfield -order UA -continue Lasix Patient educated on: diagnosis, medication risk/benefits and medical condition Informed Consent: understands Reason for continued inpatient stay Substantial Risk for: stable for discharge Time Spent With Patient Time: Total time managing care of this patient today ____ minutes.
[2024-02-26 17:00] LABS: Appearance Urine Clear; Color Urine Yellow; Glucose Urine UA Negative (Negative); Leukocyte Esterase Urine Negative (Negative); Nitrite Urine Negative (Negative); Urine Blood Negative (Negative); Urine Ketones Negative (Negative); Urine Protein Negative (Neg-Trace)
[2024-02-26 17:06] LABS: Bacteria Urine None Seen (None Seen); Hyaline Casts Urine 0-2 /LPF (0-2); RBC Urine 0-2 /HPF (0-2); Squamous Epithelial Cell Urine 0-2 /HPF (0-2); WBC Urine 0-5 /HPF (0-5)
[2024-02-26 20:00] VITALS: BP 136/69; PULSE 54; RESP 16; TEMP 36.9; O2SAT 98
[2024-02-26 20:45] VITALS: BP 136/69
[2024-02-26] MEDS: traZODone HCL 50 MG TABLET PO (20:47)
[2024-02-27 08:09] VITALS: BP 100/58; PULSE 61; RESP 17; TEMP 36.3; O2SAT 98
[2024-02-27] MEDS: Valsartan 160 MG TABLET PO (08:10)
[2024-02-27] MEDS: Furosemide 20 MG TABLET PO (08:10)
[2024-02-27] MEDS: cloNIDine HCL 0.1 MG TABLET PO ×2 (08:10→19:50)
[2024-02-27] MEDS: Escitalopram Oxalate 5 MG TABLET 15 MG PO (08:10)
[2024-02-27] MEDS: polyethylene glycoL 3350 17 GM POWD.PACK PO (08:14)
[2024-02-27 15:26] VITALS: BMI 21.6
--- NOTE | 2024-02-27 17:18 | P.PNPSI_ITS ---
Subjective Subjective Date of Service: 02/27/24 Reason For Visit: Catatonia Interim History: Met with patient; discussed with team Patient continues to report doing well and is looking forward to discharging tomorrow. Patient expresses thanks for help received. Mental Status Exam Mental Status Exam Narrative: Pt is alert and oriented; behavior is cooperative, friendly, calm; patient is not in distress; dressed in casual attire with adequate hygiene; mood is described as good and affect congruent, brighter, naturally expressive; eye contact appropriate; Speech is normal rate, volume, prosody; no psychomotor retardation present; thought process is organized and goal directed; Thought content is on treatment; otherwise pertinent to relevant topics and without any delusional content, paranoid ideations or grandiosity; denies any SI/HI. No AVH. Patients insight and judgment fair Diagnostics Vital Signs (24Hr): Vital Signs - 24 hr 02/26/24 20:00 02/26/24 20:45 02/27/24 08:09 Temperature 98.5 F 97.3 F Pulse Rate 54 61 Respiratory Rate 16 17 Blood Pressure 136/69 136/69 100/58 L Pulse Oximetry 98 98 Oxygen Delivery Method Room Air Room Air BMI result Body Mass Index 21.6 Labs 02/19/24 11:40 Labs: Laboratory Results - last 48 hr 02/26/24 16:40 Urine Color Yellow Urine Appearance Clear Urine pH 7.0 Ur Specific Elizabeth 1.010 Urine Protein Negative Urine Glucose (UA) Negative Urine Ketones Negative Urine Blood Negative Urine Nitrite Negative Ur Leukocyte Esterase Negative Urine RBC 0-2 Urine WBC 0-5 Ur Squamous Epith Cells 0-2 Urine Bacteria None Seen Hyaline Casts 0-2 Imaging Radiology Impressions: ITS Impressions Head CT 02/06/24 10:14 IMPRESSION: No acute fracture, bony calvarium. No acute intracranial hemorrhage. Electronically signed by: Jevon Mcmahon MD 02/06/2024 10:49 AM EDT Medications Medications Current Medications Acetaminophen (Acetaminophen 325 Mg Tablet) 650 mg PO Q6H PRN PRN Reason: Headache/Pain Mild Scale (1-3) Last Admin: 02/24/24 20:16 Dose: 650 mg Al Hydroxide/Mg Hydroxide (Magnesium Hydrox/Alum Hydrox 30 Ml Oral.Susp) 30 ml PO Q6H PRN PRN Reason: Heartburn/Nausea Bisacodyl (Bisacodyl 5 Mg Tablet.Dr) 10 mg PO BEDTIME [facility] Last Admin: 02/26/24 20:45 Dose: Not Given Clonidine HCl (Clonidine Hcl 0.1 Mg Tablet) 0.1 mg PO BID [facility]; Protocol Last Admin: 02/27/24 08:10 Dose: 0.1 mg Escitalopram Oxalate (Escitalopram Oxalate 5 Mg Tablet) 15 mg PO DAILY [facility] Last Admin: 02/27/24 08:10 Dose: 15 mg Furosemide (Furosemide 20 Mg Tablet) 20 mg PO DAILY [facility]; Protocol Last Admin: 02/27/24 08:10 Dose: 20 mg Lorazepam (Lorazepam 0.5 Mg Tablet) 0.5 mg PO DAILY PRN PRN Reason: anxiety Magnesium Hydroxide (Milk Of Magnesia 30 Ml Oral.Susp) 30 ml PO DAILY PRN PRN Reason: Constipation Nicotine Polacrilex (Nicotine Polacrilex 2 Mg Gum) 4 mg BUCCAL Q2H PRN PRN Reason: Nicotine Cravings Ondansetron HCl (Ondansetron Odt 4 Mg Tab.Rapdis) 4 mg TRANSLINGU Q8H PRN PRN Reason: Nausea and Vomiting Last Admin: 02/24/24 20:16 Dose: 4 mg Polyethylene Glycol (Polyethylene Glycol 3350 17 Gm Powd.Pack) 17 gm PO DAILY PRN PRN Reason: Constipation Last Admin: 02/27/24 08:14 Dose: 17 gm Trazodone HCl (Trazodone Hcl 50 Mg Tablet) 50 mg PO BEDTIME MRX1 PRN PRN Reason: Insomnia Last Admin: 02/26/24 20:47 Dose: 50 mg Valsartan (Valsartan 160 Mg Tablet) 160 mg PO DAILY [facility]; Protocol Last Admin: 02/27/24 08:10 Dose: 160 mg Allergies Allergies Allergy/AdvReac Type Severity Reaction Status Date / Time No Known Allergies Allergy Verified 01/31/24 19:31 Assessment & Plan Assessment & Plan (1) Major depressive disorder: Status: Acute Code(s): F32.9 - Major depressive disorder, single episode, unspecified Plan Patient is a 68-year-old male with a past medical history significant for hypertension and history of catatonia, consulted for bilateral lower extremity edema and left upper extremity edema. edema - no dx of CHF, but chronic in nature per pt - echo - start lasix 20mg QD - monitor edema - encourage leg elevation - BNP elevated at 228, no baseline to compare - ok to proceed with ECT today, hold IV fluids, provider notified Plan 02/19 continue tx. one more ECT next week. plan also to taper off seroquel. 02/20 continue tx. 02/21 dc seroquel 02/22 continue tx. one more ect prior to dc on 02/23 02/23 Patient had ECT today. Denies any side effects. Continues to feel that he is doing well. Feels fine off of Seroquel and sleeping well. Working on discharge planning 02/25 Remains in good mood. Discussed lower limb edema which sign writer hand examined; patient asked about Santos stockings with which sign writer hand agreed and ordered. Patient asked for UA saying he has some lack of awareness when he needs to urinate and will then feel need to get to the bathroom quickly however this has been going on for months, prior to this admission. -Order Santos stockings -order UA -continue Lasix 02/26 patient remains doing well, good behavioral and impulse control, depression remains fully resolved and he has been without catatonic symptoms for weeks; tolerating medications and ECT. Patient is going to supportive living where they have a assigned psychiatric provider and feels good about this decision. He feels ready to go and maintains that he is back to his regular self. Patient is not in imminent risk for harm to self or others and appropriate to return to the community for treatment Patient educated on: diagnosis and medication risk/benefits Informed Consent: understands Reason for continued inpatient stay Substantial Risk for: stable for discharge Time Spent With Patient Time: Total time managing care of this patient today ____ minutes.
--- NOTE | 2024-02-27 17:23 | P.DS_ITS ---
DS: Providers Provider Date of Service: 02/28/24 Date of admission: 01/31/24 18:47 Date of discharge: 02/28/24 Primary care physician: Unknown Physician Attending physician on admission: Charbel Smith Consults: 02/19/24 09:57 Consult to Hospitalist Routine Comment: Consulting Provider: Hospitalist Reason For Exam: b/l arm, leg swelling Attending physician on discharge: Dre Hidalgo DS: Diagnosis Discharge Diagnosis (1) Major depressive disorder: Status: Acute DS: Medications Discharge Medications Home Medications: Previous Rx's ?Medication ?Instructions ?Recorded bisacodyl 5 mg tablet,delayed 10 mg (2 x 5 mg) PO BEDTIME 30 02/24/24 release days #60 tabs clonidine HCl 0.1 mg tablet 0.1 mg PO BID 30 days #60 tabs 02/24/24 escitalopram oxalate 5 mg tablet 15 mg (3 x 5 mg) PO DAILY 30 days 02/24/24 #90 tabs furosemide 20 mg tablet 20 mg PO DAILY 30 days #30 tabs 02/24/24 polyethylene glycol 3350 17 gram 17 g PO DAILY PRN Constipation 30 02/24/24 oral powder packet days #30 ea trazodone 50 mg tablet 50 mg PO BEDTIME MRX1 PRN Insomnia 02/24/24 30 days #30 tabs valsartan 160 mg tablet 160 mg PO DAILY 30 days #30 tabs 02/24/24 Mental Status Exam Mental Status Exam Narrative: Pt is alert and oriented; behavior is cooperative, friendly, calm; patient is not in distress; dressed in casual attire with adequate hygiene; mood is de scribed as good and affect congruent, brighter, naturally expressive; eye contact appropriate; Speech is normal rate, volume, prosody; no psychomotor retardation present; thought process is organized and goal directed; Thought content is on treatment; otherwise pertinent to relevant topics and without any delusional content, paranoid ideations or grandiosity; denies any SI/HI. No AVH. Patients insight and judgment fair Data Data Completed and Pending Completed studies during hospitalization [Text1]: 02/26/24 16:40 Urine Color Yellow Urine Appearance Clear Urine pH 7.0 Ur Specific [place] 1.010 Urine Protein Negative Urine Glucose (UA) Negative Urine Ketones Negative Urine Blood Negative Urine Nitrite Negative Ur Leukocyte Esterase Negative Urine RBC 0-2 Urine WBC 0-5 Ur Squamous Epith Cells 0-2 Urine Bacteria None Seen Hyaline Casts 0-2 Imaging Diagnostic Imaging Impressions Head CT 02/06/24 10:14 IMPRESSION: No acute fracture, bony calvarium. No acute intracranial hemorrhage. Electronically signed by: Jevon Mcmahon MD 02/06/2024 10:49 AM EDT RP DS: Summary Hospital Course Hospital Course: HPI: The patient is a 68-year-old male, from his , living with his brother (initially reported to have hx of frontotemporal dementia but brother said this was UNdiagnosed) who was initially admitted at [facility] last month due to catatonia. Was treated with lorazepam with for improvement but later on taper it off. He was seen by his neurologist on January and recommended to go to the hospital since he decompensated and catatonic symptoms returned. He presents with severe depression, catatonia and here for possible treatment with ECT. Hospital course: Patient presents depressed and with significant catatonic symptoms. He is ambivalent about this diagnosis and treatment. Will consider ECT but currently hesitant. On interview, the patient was pleasant, cooperative reported that he has been feeling more dysphoric and tired, he adamantly denies active suicidal ideation or paranoia. He looks hypoactive with psychomotor retardation. We discussed at length treatment options and he wants his brother to be involved in the decision making. We discussed options and he agreed to continue lorazepam on the meantime. His main concern is constipation, according to the nursing staff he was very somatically preoccupied with his bowel movements and medications. We are continuing Dulcolax that was started standing at [facility]. The patient is a very poor historian so we will try to gather more collateral information from his brother -patient was continued on Lexapro and Seroquel, both started at previous hospitalization 02/02 He reports his depression 09/22; flat and guarded refused to take Dulcolax last night; remains confused calm and hypoactive. . -meeting with his brother and another relative. He had been chronically depressed and now he is nearly catatonic. Not at his baseline. -Brother says patient does NOT have frontotemporal dementia (Records from [facility] says neurologist dx with frontotemporal dementia but brother says this was later undiagnosed). reviewed DC summary notes from 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 10/04/23 Brain MRI w/wo contrast concludes the ventricles are normal sized and configuration for pt's age all other imaging non-contributory CTA head/neck (chronic small vessel ischemic disease likely) EEG within normal limites; no...findings suggestive of a neurodegenerative process.. 02/03 Patient appears depressed, slow moving, slow talking, thinking seems slowed. Automotive Sales Professional discussed symptoms and diagnosis of catatonia. Patient expressed ambivalence about accepting this diagnosis, wondering if it could be due to anxiety; also referenced an MRI that supposedly had benign brain lesion written in the impression and patient wondered if that could be the cause. Automotive Sales Professional shared how patient significantly improved per family and per patient when he took Ativan which is fairly diagnostic of catatonia. Discussed ECT and patient ambivalent but said he would consider. Patient reports and has been observed to repeat himself or repeat words over and over; patient observed to be internally preoccupied -Increasing Ativan to 1 mg q.i.d. since patient did improve on 1 mg t.i.d. and declined once Ativan was discontinued (which is fairly diagnostic catatonia) With Ativan, patient did perk up a little bit however he remained severely depressed, with significant psychomotor retardation and catatonic symptoms, monitoring under his breath, internally preoccupied, repeating words incessantly and with some disorganization in behavior. Patient was willing to discuss ECT and understood the reasons for the treatment, risks and possible side effects. Although ambivalent about ECT he eventually agreed and decided to proceed. Patient started ECT and other than a slight headache tolerated the procedure and said he felt fine about it, willing to continue. Even after the 1st ECT he presented as more organized, more calm, smiled, talking more spontaneously and with less thought blocking. Also not repeating words to himself nearly as much. Patient though ambivalent about Ativan, agreed to continue since it was part of treatment and promotion writer felt it was necessary to help stabilize catatonia while getting ECT; promotion writer agreed to work on tapering it. Patient had been taking Seroquel prior to this admission. He did have a fall (without injury) and Seroquel dose was lowered. From this point forward, patient steadily improved. He continue with ECT treatments, without incident and depression clearly began to delaney; patient returned to organized speech and behavior and was no longer monitoring words under his breath, something he was very aware of had changed. He said he was starting to feel back to his regular self and agreed to continue with ECT treatments. Ativan was able to be tapered and eventually discontinued. Patient continued to do well and depression, anxiety, catatonic symptoms fully resolved. Patient requested and was able to get off Seroquel, no longer needing it for sleep. Patient remained in good behavioral and impulse control throughout his time in the unit. He was appropriate with peers and staff, polite, cooperative and engaged in treatment. Patient felt that he had returned to his regular self and was feeling good about moving forward with discharge. He agreed to continue ECT as an outpatient and understood the risks of catatonia returning. Patient, with team and his brother, discussed dispo options and patient decided to go to a supported living environment. Patient did develop some bilateral lower limb and briefly some upper bilateral limb edema; he was started on Lasix and eventually Santos stockings and edema began to resolve. He discussed some feeling of urinary frequency and lack of awareness when bladder was full however said this had been going on prior to hospitalization; UA unremarkable and patient said he would follow up with outpatient provider. Patient was at baseline, in a good mood, future oriented, organized in speech and behavior and remained with full resolution of psychiatric symptoms. He was not in imminent risk for harm to self or others, felt ready for discharge and was appropriate to return to the community for care. Time spent discussing smoking cessation with patient: 3 to 10 minutes Status at Discharge Functional status at discharge: independent ambulation Time Spent with Patient Time attestation: Total time managing care of this patient today ____ minutes. Time spent: Less than 30 minutes Discharge Plan Discharge Anticipated Discharge Date/Time: 02/28/24 10:30 Patient Disposition: Home, Self-Care Discharge Diagnosis: MDD, recurrent, severe with catatonia, in full remission Referrals: [facility] [Other] - 02/28/24 10:30 am (Transfer to [facility] on 02/28/24. You will be provided with psychiatry follow up by Dr[facility] [Other] - 03/02/24 6:00 am (Your are scheduled for outpatient ECT on the following Saturday's 03/02 and 03/09. Please arrive to Short Stay Surgery for 6am at [facility] on these dates.) Terrell Marshall MD [facility] [Other] - 03/09/24 3:30 pm (Your next appointment for PCP is on 03/09/24 at 3:30pm) Discharge Medications: New trazodone 50 mg Tablet 50 mg PO BEDTIME MRX1 PRN (Reason: Insomnia) 30 Days Qty: 30 0RF bisacodyl 5 mg Tablet,Delayed Release (Dr/Ec) 10 mg PO BEDTIME 30 Days Qty: 60 0RF furosemide 20 mg Tablet 20 mg PO DAILY 30 Days Qty: 30 0RF Protocol: Hold for SBP< HOLD for SBP < : 90 Continued clonidine HCl 0.1 mg Tablet 0.1 mg PO BID 30 Days Qty: 60 0RF polyethylene glycol 3350 17 gram Powder In Packet 17 g PO DAILY PRN (Reason: Constipation) 30 Days Qty: 30 0RF valsartan 160 mg Tablet 160 mg PO DAILY 30 Days Qty: 30 0RF escitalopram oxalate 5 mg tablet 15 mg PO DAILY 30 Days Qty: 90 0RF Discontinued lorazepam [Ativan] 1 mg Tablet 1 mg PO TID quetiapine 150 mg Tablet 150 mg PO BEDTIME bisacodyl 5 mg Tablet,Delayed Release (Dr/Ec) 10 mg PO BEDTIME Discharge Orders: Discharge Order (Routine); Ordered 02/28/24 Ordered By: Dre Hidalgo Diet: Regular diet Activity on Discharge: As tolerated Stand Alone Forms: Patient Portal Discharge page, Community Support Print Language: Burkinan Care Plan Goals: Maintain mood and safe behaviors Take medications as prescribed Practice coping skills Continue with outpatient providers and reach out to them as needed Health Concerns: Mood stability and behaviors Hypertension lower leg edema, B/L Plan of Treatment: Follow up with your PCP, psychiatric provider and other outpatient providers regarding above concerns Take medications as prescribed Assessment: Risk assessment at time of discharge:? Patient was interviewed prior to discharge and found to be fully oriented and without any SI or HI. Patient has improved insight and judgment and wants to continue treatment. Patient is not in imminent risk of harm to self or others and has a safety plan that includes presenting to the closest ER or calling 911 if feeling unsafe.? Patient has been observed closely by nursing and unit staff throughout admission; patient has not engaged in any behaviors that suggest dangerousness to self or others and has demonstrated appropriate behaviors and impulse control Discharge Date/Time: 02/28/24 10:43
[2024-02-27 19:49] VITALS: BP 113/57; PULSE 61; RESP 16; TEMP 36.9; O2SAT 99
[2024-02-27 19:50] VITALS: BP 113/57
[2024-02-28 08:14] VITALS: BP 117/58; PULSE 63; RESP 14; TEMP 36.4; O2SAT 98
[2024-02-28] MEDS: Escitalopram Oxalate 5 MG TABLET 15 MG PO (08:16)
[2024-02-28] MEDS: cloNIDine HCL 0.1 MG TABLET PO (08:16)
[2024-02-28] MEDS: Valsartan 160 MG TABLET PO (08:17)
[2024-02-28] MEDS: Furosemide 20 MG TABLET PO (08:17)
[2024-02-28] MEDS: polyethylene glycoL 3350 17 GM POWD.PACK PO (08:20)
== END 2024-02-28 10:43 | disposition home or self-care (01) | DRG 885 ==
PROVIDERS: Clinical Nurse Specialist Psychiatric/Mental Health, Adult; Physician Assistant; Psychiatry & Neurology Psychiatry; Admitting Provider Psychiatry & Neurology Psychiatry; Visit Provider Psychiatry & Neurology Psychiatry
PROC: GZB4ZZZ Other Electroconvulsive Therapy (ICD-10-PCS; CPT 90870; principal; 2024-02-07 13:30)
PROC: (CPT 90870; principal; 2024-02-12 07:30)
DX: F33.2 Major depressive disorder, recurrent severe without psychotic features (principal); R60.0 Localized edema; G31.09 Other frontotemporal neurocognitive disorder; F02.80 Dementia in other diseases classified elsewhere, unspecified severity, without behavioral disturbance, psychotic disturbance, mood disturbance, and anxiety; I10 Essential (primary) hypertension; Z79.899 Other long term (current) drug therapy
CPT/HCPCS: 36415; 70450; 80048; 80061; 81001; 82607; 82746; 83036; 83735; 83880; 84439; 84443; 90870; 93005; 93306; 97161; J0330; J1596; J1805; J2704; J7120

== ENCOUNTER 2024-01-31 18:47 | Outpatient (BNV) | payer MEDICARE, SELFPAY | END 2024-02-04 13:52 | PROVIDERS: Admitting Provider Psychiatry & Neurology Psychiatry; Visit Provider Internal Medicine Cardiovascular Disease | DX: R00.1 Bradycardia, unspecified (principal) | CPT/HCPCS: 93010 ==

== ENCOUNTER 2024-01-31 18:47 | Outpatient (BNV) | payer MEDICARE, SELFPAY | END 2024-02-06 10:14 | PROVIDERS: Admitting Provider Psychiatry & Neurology Psychiatry; Visit Provider Radiology Diagnostic Radiology | DX: Z13.850 Encounter for screening for traumatic brain injury (principal) | CPT/HCPCS: 70450 ==

== ENCOUNTER → 2024-01-31 18:47 | Outpatient (BNV) | payer MEDICARE, SELFPAY | PROVIDERS: Admitting Provider Psychiatry & Neurology Psychiatry; Visit Provider Student in an Organized Health Care Education/Training Program | DX: R60.0 Localized edema (principal) | CPT/HCPCS: 99232; 99429 ==

== ENCOUNTER → 2024-01-31 18:47 | Outpatient (BNV) | payer MEDICARE, SELFPAY | PROVIDERS: Admitting Provider Psychiatry & Neurology Psychiatry; Visit Provider Psychiatry & Neurology Psychiatry | DX: G31.09 Other frontotemporal neurocognitive disorder (principal); F02.80 Dementia in other diseases classified elsewhere, unspecified severity, without behavioral disturbance, psychotic disturbance, mood disturbance, and anxiety; F06.1 Catatonic disorder due to known physiological condition | CPT/HCPCS: 90870; 99232 ==

== ENCOUNTER → 2024-01-31 18:47 | Outpatient (BNV) | payer MEDICARE, SELFPAY | PROVIDERS: Admitting Provider Psychiatry & Neurology Psychiatry; Visit Provider Psychiatry & Neurology Psychiatry | DX: F32.2 Major depressive disorder, single episode, severe without psychotic features (principal); F06.1 Catatonic disorder due to known physiological condition | CPT/HCPCS: 90792; 90870; 99231; 99232; 99238 ==

== ENCOUNTER 2024-03-02 06:00 | Day surgery (SDC) | payer MEDICARE, SELFPAY ==
[2024-03-02] VITALS (11 sets, daily range): BP systolic 108–147; BP diastolic 60–94; PULSE 51–63; RESP 14–16; TEMP 36.4–36.6; O2SAT 94–99; BMI 21.6
[2024-03-02] MEDS: Lactated Ringers 1,000 ML 100 ML IVCONT (06:48)
--- NOTE | 2024-03-02 07:00 | MHC.SHP ---
Pre-Procedural Eval Section A - 24 Hr Update-Section A only Date of Service: 03/02/24 The patient is an INPATIENT: Yes Changes since office visit: No Cold of Flu in the past 2 weeks, No New Medical Problems, No Changes in Medication and No Patient answered all questions The patient has been examined within 24 hours of the surgical procedure. The History & Physical has been completed within 30 days and I have reviewed it.: Yes Section B - Complete if H&P > 30 days Chief Complaint: depression Details of Present Illness: much better since ECT was started Relevant Family History (Specify if Yes): No Relevant Social History: None Present Medications: None Medical History: No relevant PMH History of Previous Operations: No relevant previous surgery Allergies: Allergies Allergy/AdvReac Type Severity Reaction Status Date / Time No Known Allergies Allergy Verified 01/31/24 19:31 Review of Systems Sugical H&P ROS: Negative: Constitution, Cardiovascular, Respiratory, Neurological, Psychiatric, Hem-Onc, Allergic/Immunologic, Gastrointestinal, Genitourinary, Musculoskeletal, Integumentary, Endocrine and Eyes/Ears/Nose/Throat Exam Surgical H&P Exam: Normal: HEENT, Normal: Heart, Normal: Lungs, Normal: Extremities, Normal: Abdomen, Normal: Skin and Normal: Neurological Plan Diagnosis/Plan: Unchanged I have reviewed the history and physical and performed a pertinent physical examination on my patient. No changes have occurred unless specified. Time Spent With Patient Time: Total time managing care of this patient today __15__ minutes.
--- NOTE | 2024-03-02 07:03 | P.CONAN_ITS ---
[facility] Active Problems Active Problems: All Active Problems Edema of both feet (Acute) Preoperative clearance (Acute) Major depressive disorder (Acute) Medical clearance for psychiatric admission (Acute) Catatonia (Acute) Frontotemporal dementia (Acute) Past Medical History Medical History HTN (hypertension) Family History Family history of problems with anesthesia: No Surgical History History of Problems with Anesthesia: No Social History Social History Household Members: Other Household Members Other:: lives w/ his brother according to the pt. Housing: House Do you presently have visiting nurse or other home services: No Patient Tobacco Use Status: Never used Tobacco e-Cigarette/Vaping Use: Never Used Second Hand Smoke Exposure: No Advance Directives: No Advance Directives Information Provided: Yes service: No Sexual orientation: Straight/Heterosexual Meds Allergies Allergy/AdvReac Type Severity Reaction Status Date / Time No Known Allergies Allergy Verified 01/31/24 19:31 Active Medications: Current Medications Lactated Ringer's (Lr) 1,000 mls @ 100 mls/hr IVCONT .Q10H CALLIE Last Admin: 03/02/24 06:48 Dose: 100 mls/hr Exam Height,Weight and Vital Signs: Height 6 ft Weight 72.121 kg Last Vital Signs Temp 97.8 F 03/02/24 06:34 Pulse 54 03/02/24 06:34 Resp 16 03/02/24 06:34 BP 136/77 03/02/24 06:34 Pulse Ox 98 03/02/24 06:34 O2 Del Method Room Air 03/02/24 06:34 Airway Mallampati Class: II TM Dist: >3cm Neck ROM: Full Assessment and Plan Assessment Anesthesia Assessment: Anesthesia Plan Discussed and Chart Reviewed Final Anesthetic Review Family History of Problems with Anesthesia: No History of Problems with Anesthesia: No NPO: Yes ASA Class: III Final Preanesthetic Review: No Changes in Pt Med Stat, Meds/Allgs Chart Reviewed and Anes Risks/Benef Reviewed Patient Risk: Intermediate Procedure Risk: Low Anesthetic Plan Anesthetic Plan: GA Disposition: Standard PACU
--- NOTE | 2024-03-02 07:17 | HO.ECTPROC ---
ECT Procedure Note Diagnosis/Treatment Date of Service: 03/02/24 Diagnosis: Major Depressive Disorder Previous ECT Date: 02/24/24 Current Treatment Number: 8 Treatment: Maintenance Interval Clinical Notes: The patient reported nausea and headaches after the last ECT. His mood improved a lot, now on weekly ECTs. ECT done with a lower stimuli but he had again a very long seizure that resolved by itslef. We will lower the stimuli more next time. Woke up well, no comlications. Time: Total time managing care of this patient today __30__ minutes. ECT Settings Device: THYMATRON DGx Electrode Placement: Bifrontal Program/Pulse Width: 0.25 Energy Percent: 40 Seizure Duration By EEG (in seconds): 88 By Motor Observation (in seconds): 42 Medications Administration General Anesthetic: Etomidate (10) Muscle Relaxant: Succinylcholine (80) Ancillary Medications Anti-emetics: Zofran - Pre ECT Miscillaneous Medications: Propofol (30 after ECT) Airway Management Airway Management: Bag Mask Ventilation Treatment Recommendations Electrode Placement: Bifrontal Program/Pulse Width: 0.25 Energy Percent: 30 Notes: Next time lower the stimuli to 0.25 at 30% Pt Tolerated Procedure w/o Issue: Yes
[2024-03-02] MEDS: Acetaminophen 325 MG TABLET 975 MG PO (09:37)
== END 2024-03-02 09:55 | disposition home or self-care (01) ==
PROVIDERS: Visit Provider Psychiatry & Neurology Psychiatry
PROC: (CPT 90870; principal; 2024-03-02 07:30)
DX: F33.2 Major depressive disorder, recurrent severe without psychotic features (principal); I10 Essential (primary) hypertension; Z79.899 Other long term (current) drug therapy
CPT/HCPCS: 90870; J0330; J1630; J2405; J2704

== ENCOUNTER → 2024-03-02 06:00 | Outpatient (BNV) | payer MEDICARE, SELFPAY | PROVIDERS: Visit Provider Psychiatry & Neurology Psychiatry | DX: F33.2 Major depressive disorder, recurrent severe without psychotic features (principal) | CPT/HCPCS: 90870 ==

== ENCOUNTER 2024-03-09 06:01 | Day surgery (SDC) | payer MEDICARE, SELFPAY ==
[2024-03-09] VITALS (8 sets, daily range): BP systolic 125–171; BP diastolic 78–88; PULSE 56–76; RESP 16; TEMP 35.8–36.8; O2SAT 95–99
--- NOTE | 2024-03-09 06:50 | HO.ANESPROP2 ---
[facility] Active Problems Active Problems: All Active Problems Edema of both feet (Acute) Major depressive disorder (Acute) Past Medical History Medical History HTN (hypertension) Family History Family history of problems with anesthesia: No Surgical History History of Problems with Anesthesia: No Social History Social History Household Members: Other Household Members Other:: lives w/ his brother according to the pt. Housing: House Do you presently have visiting nurse or other home services: No Patient Tobacco Use Status: Never used Tobacco e-Cigarette/Vaping Use: Never Used Second Hand Smoke Exposure: No Advance Directives: No Advance Directives Information Provided: Yes service: No Sexual orientation: Straight/Heterosexual Meds Allergies Allergy/AdvReac Type Severity Reaction Status Date / Time No Known Allergies Allergy Verified 01/31/24 19:31 Active Medications: Current Medications Lactated Ringer's (Lr) 1,000 mls @ 50 mls/hr IVCONT .Q20H CALLIE Naloxone HCl (Naloxone Hcl 0.4 Mg/Ml Vial) 0.04 mg IVPUSH Q5M PRN PRN Reason: Excessive sedation or RR < 8 Exam Height,Weight and Vital Signs: Last Vital Signs Temp 96.4 F L 03/09/24 06:16 Pulse 56 03/09/24 06:16 Resp 16 03/09/24 06:16 BP 152/80 H 03/09/24 06:16 Pulse Ox 99 03/09/24 06:16 O2 Del Method Room Air 03/09/24 06:16 Airway Mallampati Class: II (multiple crowns laterally) TM Dist: >3cm Neck ROM: Full Heart: rrr Lungs: cta Assessment and Plan Final Anesthetic Review Family History of Problems with Anesthesia: No History of Problems with Anesthesia: No NPO: Yes ASA Class: III Final Preanesthetic Review: No Changes in Pt Med Stat, Meds/Allgs Chart Reviewed and Consent Obtained/Reviewed Patient Risk: Intermediate Procedure Risk: Intermediate Anesthetic Plan Anesthetic Plan: GA Disposition: Standard PACU
--- NOTE | 2024-03-09 07:04 | MHC.SHP ---
Pre-Procedural Eval Section A - 24 Hr Update-Section A only Date of Service: 03/09/24 The patient is an INPATIENT: No Changes since office visit: Yes Cold of Flu in the past 2 weeks, Yes New Medical Problems, Yes Changes in Medication and Yes Patient answered all questions The patient has been examined within 24 hours of the surgical procedure. The History & Physical has been completed within 30 days and I have reviewed it.: No Section B - Complete if H&P > 30 days Chief Complaint: depression Allergies: Allergies Allergy/AdvReac Type Severity Reaction Status Date / Time No Known Allergies Allergy Verified 01/31/24 19:31 Plan I have reviewed the history and physical and performed a pertinent physical examination on my patient. No changes have occurred unless specified. Time Spent With Patient Time: Total time managing care of this patient today ____ minutes.
[2024-03-09] MEDS: Lactated Ringers 1,000 ML 50 ML IVCONT (07:08)
--- NOTE | 2024-03-09 07:20 | HO.ECTPROC ---
ECT Procedure Note Diagnosis/Treatment Date of Service: 03/09/24 Diagnosis: Major Depressive Disorder Previous ECT Date: 03/02/24 Current Treatment Number: 9 Treatment: Maintenance Interval Clinical Notes: The patient reported euthymia. He reported oversedation and weakness with the last ECT, unusual since we didn't do any major changes on his last procedure. Today, the anesthesiologist didn't give Zofram and reassess. ECT done with a lower parameter and still he had a very long seizure that resolved by itself. Woke up well. Time: Total time managing care of this patient today ____ minutes. ECT Settings Device: THYMATRON DGx Electrode Placement: Bifrontal Program/Pulse Width: 0.25 Energy Percent: 30 Seizure Duration By EEG (in seconds): 73 By Motor Observation (in seconds): 46 Medications Administration General Anesthetic: Etomidate (10) Muscle Relaxant: Succinylcholine (80) Airway Management Airway Management: Bag Mask Ventilation Treatment Recommendations Electrode Placement: Bifrontal Program/Pulse Width: 0.25 Energy Percent: 20 Pt Tolerated Procedure w/o Issue: Yes
--- NOTE | 2024-03-09 08:45 | PC.NURSE ---
PATIENT IN DISCHARGE AREA AND STATED HE HAD BEEN COUGHING AND FELT LIKE THERE WAS FLUID IN HIS CHEST. PATIENT HAS NOT COUGHED IN THE DISCHARGE AREA AND PATIENT IS SPEAKING CLEARLY. COLOR WNL, NO FEVER. THIS RN HAD DR. JONES, ANESTHESIOLOGIST, COME AND ASSESS PATIENT. PATIENT WAS CLEARED BY DR. JONES. PATIENT WAS TOLD IF HE HAD ANY ISSUES, FEVER, SOB, DIFFICULTY CLEARING SECRETIONS, ETC. TO GO TO THE EMERGENCY ROOM.
== END 2024-03-09 08:48 | disposition home or self-care (01) ==
PROVIDERS: Visit Provider Psychiatry & Neurology Psychiatry
PROC: (CPT 90870; principal; 2024-03-09 07:00)
DX: F33.2 Major depressive disorder, recurrent severe without psychotic features (principal); F39 Unspecified mood [affective] disorder; I10 Essential (primary) hypertension; Z79.899 Other long term (current) drug therapy
CPT/HCPCS: 90870; J0330; J2704

== ENCOUNTER → 2024-03-09 06:01 | Outpatient (BNV) | payer MEDICARE, SELFPAY | PROVIDERS: Visit Provider Psychiatry & Neurology Psychiatry | DX: F33.3 Major depressive disorder, recurrent, severe with psychotic symptoms (principal) | CPT/HCPCS: 90870 ==

== ENCOUNTER 2024-03-20 06:30 | Day surgery (SDC) | payer MEDICARE, OTHER, SELFPAY ==
[2024-03-20] VITALS (7 sets, daily range): BP systolic 120–144; BP diastolic 72–89; PULSE 67–88; RESP 14–16; TEMP 36.6; O2SAT 98–100
[2024-03-20] MEDS: Lactated Ringers 1,000 ML 100 ML IVCONT (07:13)
--- NOTE | 2024-03-20 07:31 | MHC.SHP ---
Pre-Procedural Eval Section A - 24 Hr Update-Section A only Date of Service: 03/20/24 Section B - Complete if H&P > 30 days Chief Complaint: depression Details of Present Illness: hx htn not feeling depression Allergies: Allergies Allergy/AdvReac Type Severity Reaction Status Date / Time No Known Allergies Allergy Verified 01/31/24 19:31 Review of Systems Sugical H&P ROS: Negative: Cardiovascular, Respiratory and Psychiatric Exam Surgical H&P Exam: Normal: Heart, Normal: Lungs and Normal: Neurological Plan Diagnosis/Plan: Unchanged I have reviewed the history and physical and performed a pertinent physical examination on my patient. No changes have occurred unless specified. Time Spent With Patient Time: Total time managing care of this patient today ____ minutes.
--- NOTE | 2024-03-20 07:39 | HO.ECTPROC ---
ECT Procedure Note Diagnosis/Treatment Date of Service: 03/20/24 Diagnosis: Major Depressive Disorder Previous ECT Date: 03/02/24 Current Treatment Number: 10 Treatment: Maintenance Interval Clinical Notes: Pt has been doing well living in [facility] living? Not depressed some rumination re post ect effects. Questions answered cognitively intact. fx much improved [place] [facility] [place] Time: Total time managing care of this patient today ____ minutes. ECT Settings Device: THYMATRON DGx Electrode Placement: Bifrontal Program/Pulse Width: 0.25 Energy Percent: 25 Seizure Duration By EEG (in seconds): 68 Medications Administration General Anesthetic: Etomidate (10) Muscle Relaxant: Succinylcholine (80) Ancillary Medications Anti-emetics: Zofran - Pre ECT Miscillaneous Medications: Propofol (30) Airway Management Airway Management: Bag Mask Ventilation Treatment Recommendations Electrode Placement: Bifrontal Program/Pulse Width: 0.25 Energy Percent: 20 Pt Tolerated Procedure w/o Issue: Yes
--- NOTE | 2024-03-20 08:33 | HO.ANESPROP2 ---
HPI - Anesthesia Eval Consult details Narrative: for ECT PMFSH Active Problems Active Problems: All Active Problems Edema of both feet (Acute) Major depressive disorder (Acute) Past Medical History Medical History HTN (hypertension) Family History Family history of problems with anesthesia: No Surgical History History of Problems with Anesthesia: No Social History Social History Household Members: Other Household Members Other:: lives w/ his brother according to the pt. Housing: House Do you presently have visiting nurse or other home services: No Patient Tobacco Use Status: Never used Tobacco e-Cigarette/Vaping Use: Never Used Second Hand Smoke Exposure: No Advance Directives: No Advance Directives Information Provided: Yes service: No Sexual orientation: Straight/Heterosexual Meds Allergies Allergy/AdvReac Type Severity Reaction Status Date / Time No Known Allergies Allergy Verified 01/31/24 19:31 Active Medications: Current Medications Lactated Ringer's (Lr) 1,000 mls @ 100 mls/hr IVCONT .Q10H CALLIE Last Admin: 03/20/24 07:13 Dose: 100 mls/hr Exam Height,Weight and Vital Signs: Height 158 ft Last Vital Signs Temp 98 F 03/20/24 07:50 Pulse 71 03/20/24 08:20 Resp 14 03/20/24 08:20 BP 132/84 03/20/24 08:20 Pulse Ox 100 03/20/24 08:20 O2 Del Method Nasal Cannula 03/20/24 08:20 O2 Flow Rate 2 03/20/24 08:20 Airway Mallampati Class: III TM Dist: <=3cm Neck ROM: Full (facial hair, uused nasal airway after induction for good seal) Heart: rrr Lungs: cta Assessment and Plan Assessment Anesthesia Assessment: Anesthesia Plan Discussed Final Anesthetic Review Family History of Problems with Anesthesia: No History of Problems with Anesthesia: No NPO: Yes ASA Class: III Final Preanesthetic Review: No Changes in Pt Med Stat, Meds/Allgs Chart Reviewed, Consent Obtained/Reviewed and Anes Risks/Benef Reviewed Patient Risk: Intermediate Procedure Risk: Low Anesthetic Plan Anesthetic Plan: GA Disposition: Standard PACU
== END 2024-03-20 09:09 | disposition home or self-care (01) ==
PROVIDERS: Visit Provider Psychiatry & Neurology Psychiatry
PROC: (CPT 90870; principal; 2024-03-20 08:00)
DX: F33.2 Major depressive disorder, recurrent severe without psychotic features (principal); I10 Essential (primary) hypertension; Z79.899 Other long term (current) drug therapy
CPT/HCPCS: 90870; J0330; J2405; J2704

== ENCOUNTER → 2024-03-20 06:30 | Outpatient (BNV) | payer MEDICARE, MEDICAID, SELFPAY | PROVIDERS: Visit Provider Psychiatry & Neurology Psychiatry | DX: F33.3 Major depressive disorder, recurrent, severe with psychotic symptoms (principal) | CPT/HCPCS: 90870 ==